=== PATIENT | male | born 1940 | race Caucasian/White ===

== ENCOUNTER → 2016-08-23 | Outpatient (CLI) | payer MEDICARE, BC | END | disposition home or self-care (01) | LOC: LABWHC1 16:15 | PROVIDERS: ATTEND Psychiatry & Neurology Pain Medicine | DX: E55.9 Vitamin D deficiency, unspecified (principal) | CPT/HCPCS: 36415; 82306 ==

== ENCOUNTER 2016-09-04 13:32 | Day surgery (SDC) | payer MEDICARE, BC ==
[2016-09-04] MEDS ORDERED: LIDOCAINE 1% 20 ML VIAL (10MG/ML) FOR IV START INTRADERMA ONE (13:46)
[2016-09-04] MEDS ORDERED: LACTATED RINGERS 1,000 ML IV ONE (13:46)
[2016-09-04 13:53] VITALS: TEMP 98.5
[2016-09-04] MEDS ORDERED: LIDOCAINE 1% INJ 10MG/ML (20 ML MDV) ONE (14:11)
[2016-09-04] MEDS ORDERED: GLYCOPYRROLATE 0.2 MG/ML 2 ML VIAL ONE (14:11)
[2016-09-04] MEDS ORDERED: KETAMINE 10 MG/ML 20 ML VIAL ONE (14:11)
[2016-09-04] MEDS ORDERED: PROPOFOL 10 MG/ML 20 ML VIAL IV ONE (14:11)
[2016-09-04] MEDS ORDERED: LIDOCAINE 2% INJ 20 MG/ML INTRATRACH ONE (14:45)
[2016-09-04 16:05] VITALS: BP 155/74; PULSE 75; RESP 20
--- NOTE | 2016-09-04 21:04 | PCN ---
DATE OF PROCEDURE: PROCEDURE: Bronchoscopy, airway examination, therapeutic lavage and retrieval of a foreign object (a gold dental appliance). PREOPERATIVE DIAGNOSIS: Foreign body aspiration, right mainstem. POSTOPERATIVE DIAGNOSIS: Foreign body aspiration, right mainstem. There was informed consent. There was universal timeout. [employer] LEADER and anesthesiologist provided sedation. The patient's procedure was done in Room #1 in the [facility]. The procedure was also done by Dr. Nadja Haynes. After the patient was adequately sedated and being fully monitored, the bronchoscope was inserted through the nostrils. There was some epistaxis. Eventually we switched over to a bite block. We eventually went transorally. We were able to find the foreign body in the right lower lobe. We were able to snare it with the biopsy forceps. We were able to bring it out through the bite block. The patient tolerated the procedure well. There was some epistaxis from above. The bleeding pretty much ceased by the time we were done with the procedure. The foreign body was removed. The airway was cleansed with saline. There was no immediate complication. The patient tolerated the procedure well.
[2016-09-05] MEDS ORDERED: ATROPINE SULFATE 0.4 MG/ML 1 ML VIAL IM ONE (05:00)
== END 2016-09-04 16:51 | disposition home or self-care (01) ==
LOC: ORWHC2ENDO 13:32
PROVIDERS: ATTEND Internal Medicine Critical Care Medicine
DX: T17.890A Other foreign object in other parts of respiratory tract causing asphyxiation, initial encounter (principal); X58.XXXA Exposure to other specified factors, initial encounter; Y93.89 Activity, other specified; Y92.531 Health care provider office as the place of occurrence of the external cause; J44.9 Chronic obstructive pulmonary disease, unspecified; E27.40 Unspecified adrenocortical insufficiency; E78.5 Hyperlipidemia, unspecified; I48.91 Unspecified atrial fibrillation; K21.9 Gastro-esophageal reflux disease without esophagitis; N40.0 Benign prostatic hyperplasia without lower urinary tract symptoms; G47.30 Sleep apnea, unspecified; Z95.0 Presence of cardiac pacemaker; Z95.1 Presence of aortocoronary bypass graft; I12.9 Hypertensive chronic kidney disease with stage 1 through stage 4 chronic kidney disease, or unspecified chronic kidney disease; N18.4 Chronic kidney disease, stage 4 (severe); Z86.73 Personal history of transient ischemic attack (TIA), and cerebral infarction without residual deficits; Z79.01 Long term (current) use of anticoagulants; Z79.82 Long term (current) use of aspirin; Z79.899 Other long term (current) drug therapy; Z88.1 Allergy status to other antibiotic agents; Z88.5 Allergy status to narcotic agent; Z87.891 Personal history of nicotine dependence
CPT/HCPCS: 31635; J2001 ×2; J2704; 71010; 99153; 99213

== ENCOUNTER 2016-09-09 14:56 | Emergency (ER) | payer MEDICARE, BC ==
[2016-09-09 15:04] VITALS: RESP 18
[2016-09-09 15:50] LABS: Anisocytosis Slight; Basophils # (A) 0.1 k/uL (0-0.2); Basophils % (A) 1 %; CH 30.2; CHCM 32.9; Eosinophils # (A) 0.3 k/uL (0-0.7); Eosinophils % (A) 3 %; HCT 38.3 % (39.0-53.0); HDW 3.21; HGB 12.2 gm/dL (13.0-17.5); Luc # (Auto) 0.36; Luc % (Auto) 4; Lymphocytes # (A) 1.1 k/uL (1.0-4.8); Lymphocytes % (A) 12 %; MCH 29.3 pg (25.0-35.0); MCHC 31.7 g/dL (31.0-37.0); MCV 92.3 fL (80.0-100.0); Mean Platelet Volume 8.7; Monocytes # (A) 0.8 k/uL (0-1.0); Monocytes % (A) 9 %; Neutrophils # (A) 6.5 k/uL (1.3-7.7); Neutrophils % (A) 72 %; RBC 4.15 m/uL (4.30-5.90); RDW 16.4 % (11.5-15.5); WBC (Perox) 8.98
[2016-09-09 15:56] LABS: Calcium 9.5 mg/dL (8.4-10.2); Potassium 4.2 mmol/L (3.5-5.1); Total Bilirubin 1.1 mg/dL (0.2-1.3); Total Protein 6.1 g/dL (6.3-8.2)
[2016-09-09 16:10] LABS: Creatine Kinase 54 U/L (55-170)
[2016-09-09 16:23] LABS: Creatine Kinase MB 0.6 ng/mL (0.0-2.4); Troponin I <0.012 ng/mL (0.000-0.034)
--- NOTE | 2016-09-09 16:41 | XR ---
EXAMINATION TYPE: XR chest 2V DATE OF EXAM: 09/09/2016 4:29 PM COMPARISON: Chest x-ray 04 September 2016 HISTORY: Difficulty breathing TECHNIQUE: Frontal and lateral views of the chest are obtained. FINDINGS: There is no focal air space opacity, pleural effusion, or pneumothorax seen. The cardiac silhouette size is within normal limits. There are prominent lung volumes. Patient is post median s ternotomy. Intracardiac defibrillator leads are again noted. Postop change noted to the left shoulder . The osseous structures are intact. IMPRESSION: No acute cardiopulmonary process.
[2016-09-09] MEDS ORDERED: NITROGLYCERIN OINT 1 INCH/GM PACKET TOPICAL STA (16:47)
[2016-09-09] MEDS ORDERED: FUROSEMIDE 10 MG/ML 4 ML VIAL IV STA (16:47)
--- NOTE | 2016-09-09 17:12 | ED ---
SOB HPI - General Chief Complaint: Shortness of Breath Stated Complaint: SOB/deep cough/shoulder pain Time Seen by Provider: 09/09/16 15:19 Source: patient Mode of arrival: wheelchair Limitations: no limitations - History of Present Illness MD Complaint: shortness of breath -: hour(s) Consistency: constant Improves With: nothing Worsens With: exertion Known History Of: COPD Associated Symptoms: cough, sputum production - Related Data Home Medications Medication Instructions Recorded Confirmed FLUoxetine HCL [PROzac] 20 mg PO W/SUPPER 11/24/13 09/09/16 Folic Acid 1 mg PO W/SUPPER 11/24/13 09/09/16 Methotrexate Sodium [Methotrexate] 5 mg PO FR 11/24/13 09/09/16 Pantoprazole Sodium [Protonix] 40 mg PO BID 11/24/13 09/09/16 Tamsulosin [Flomax] 0.8 mg PO W/SUPPER 12/01/13 09/09/16 Calcitriol 0.5 mcg PO MOWEFR 05/29/16 09/09/16 Donepezil [Aricept] 5 mg PO HS 05/29/16 09/09/16 Furosemide [Lasix] 20 mg PO QAM 05/29/16 09/09/16 Gabapentin [Neurontin] 400 mg PO HS 05/29/16 09/09/16 Magnesium Oxide 400 mg PO QAM 05/29/16 09/09/16 Warfarin [Coumadin] 1 mg PO SUMOWETHFRSA 05/29/16 09/09/16 Aspirin EC [Ecotrin Low Dose] 81 mg PO QAM 09/09/16 09/09/16 Atorvastatin Calcium [Lipitor] 40 mg PO QAM 09/09/16 09/09/16 CHLORPHEN-HYDROcod 8-10mg/5ml 5 ml PO Q12HR PRN 09/09/16 09/09/16 [Tussionex] Calcitonin Nasal [Fortical] 1 spray NASAL DAILY 09/09/16 09/09/16 Hydrocodone Bitartrate [[place] 30 mg PO Q12H 09/09/16 09/09/16 ER] Metoprolol Tartrate [Lopressor] 12.5 mg PO BID 09/09/16 09/09/16 Warfarin [Coumadin] 1.5 mg PO TU 09/09/16 09/09/16 Allergies Allergy/AdvReac Type Severity Reaction Status Date / Time fentanyl AdvReac Nausea Verified 09/09/16 15:57 levofloxacin [From Levaquin] AdvReac Hallucinati Verified 09/09/16 15:57 ons methadone [Methadone] AdvReac Nausea Verified 09/09/16 15:57 morphine AdvReac Nausea Verified 09/09/16 15:57 oxycodone HCl AdvReac Leg Cramps Verified 09/09/16 15:57 [From OxyContin] Review of Systems ROS Statement: Those systems with pertinent positive or pertinent negative responses have been documented in the HPI. ROS Other: All systems not noted in ROS Statement are negative. Constitutional: Denies: fever, chills Respiratory: Reports: cough, dyspnea, wheezes. Denies: hemoptysis Cardiovascular: Denies: chest pain, edema, syncope Gastrointestinal: Denies: abdominal pain, vomiting, diarrhea Genitourinary: Denies: hematuria Musculoskeletal: Denies: back pain Skin: Denies: rash Neurological: Denies: headache, weakness, numbness Past Medical History Past Medical History: Atrial Fibrillation, Heart Failure, COPD, CVA/TIA, GERD/ Reflux, Hearing Disorder / Deafness, Hyperlipidemia, Prostate Disorder, Renal Disease, Skin Disorder Additional Past Medical History / Comment(s): HX BARRETTS ESOPHAGUS. hx TIA, BELLS PALSY. aortic aneurysm, psoriasis, stage 4 kidney disease, enlarged prostate, NON CANCEROUS LESION REMOVED FROM RIGHT NOSTRIL, FELL 06/01/16 BACK INJURY VERTEBRAE BROKEN History of Any Multi-Drug Resistant Organisms: None Reported Past Surgical History: AICD, Appendectomy, Cardiac Valve Replacement, Cholecystectomy, Joint Replacement, Orthopedic Surgery, Tonsillectomy Additional Past Surgical History / Comment(s): MITRAL VALVE REPL. 2006. SHOULDER SURG. X6-BOTH SHOULDERS. RIGHT EYE SURG/D/T INJURY. left shoulder replacement, riky cataracts Past Anesthesia/Blood Transfusion Reactions: Previous Problems w/ Anesthesia Additional Past Anesthesia/Blood Transfusion Reaction / Comment(s): confused for 21 days after mitral valve replacement at [facility] in 2006 Type of Cardiac Device: AICD Device Placement Date:: 2014.[employer]-serial [id number], model [id number] Past Psychological History: Anxiety, Depression Smoking Status: Former smoker Past Alcohol Use History: None Reported Additional Past Alcohol Use History / Comment(s): quit smoking 1985, smoked for about 20 yrs- 1 PPD Past Drug Use History: None Reported - Past Family History Sister(s) Family Medical History: Cancer General Exam Limitations: no limitations General appearance: alert Head exam: Present: atraumatic, normocephalic Eye exam: Present: normal appearance Neck exam: Present: normal inspection Respiratory exam: Present: rales (Bilateral bases). Absent: respiratory distress, wheezes, rhonchi, stridor Cardiovascular Exam: Present: regular rate, normal rhythm, normal heart sounds. Absent: systolic murmur, diastolic murmur, rubs, gallop GI/Abdominal exam: Present: soft. Absent: distended, tenderness, guarding, rebound Extremities exam: Present: normal inspection, normal capillary refill. Absent: pedal edema, calf tenderness Back exam: Absent: CVA tenderness (R), CVA tenderness (L) Neurological exam: Present: alert Skin exam: Present: warm, dry, intact, normal color. Absent: rash Course Vital Signs 09/09/16 09/09/16 09/09/16 15:00 17:00 18:00 Temperature 97.6 F Pulse Rate 71 49 L 71 Respiratory 18 18 18 Rate Blood Pressure 125/60 123/56 134/64 O2 Sat by Pulse 97 95 97 Oximetry 09/09/16 18:50 Temperature 97.9 F Pulse Rate 71 Respiratory 18 Rate Blood Pressure 147/71 O2 Sat by Pulse 95 Oximetry Medical Decision Making - Medical Decision Making Repeat EKG again shows a ventricular paced rhythm this time with a rate of 69 bpm. The patient is feeling better following medications. He has urinated over 500 mL and feels like his breathing has improved. We discussed brief admission but the patient would much rather continue as an outpatient. He'll return should the dyspnea recur or if he expresses any new symptoms. He is otherwise going to follow with his physician on Sunday. We discussed return parameters. - Lab Data Result diagrams: 09/09/16 15:25 09/09/16 15:25 Lab Results 09/09/16 09/09/16 09/09/16 Range/Units 15:25 15:25 15:25 WBC 9.0 (3.8-10.6) k/uL RBC 4.15 L (4.30-5.90) m/uL Hgb 12.2 L (13.0-17.5) gm/dL Hct 38.3 L (39.0-53.0) % MCV 92.3 (80.0-100.0) fL MCH 29.3 (25.0-35.0) pg MCHC 31.7 (31.0-37.0) g/dL RDW 16.4 H (11.5-15.5) % Plt Count 318 (150-450) k/uL Neutrophils % 72 % Lymphocytes % 12 % Monocytes % 9 % Eosinophils % 3 % Basophils % 1 % Neutrophils # 6.5 (1.3-7.7) k/uL Lymphocytes # 1.1 (1.0-4.8) k/uL Monocytes # 0.8 (0-1.0) k/uL Eosinophils # 0.3 (0-0.7) k/uL Basophils # 0.1 (0-0.2) k/uL Anisocytosis Slight Sodium 141 (137-145) mmol/L Potassium 4.2 (3.5-5.1) mmol/L Chloride 100 (98-107) mmol/L Carbon Dioxide 29 (22-30) mmol/L Anion Gap 12 mmol/L BUN 24 H (9-20) mg/dL Creatinine 2.00 H (0.66-1.25) mg/dL Est GFR (MDRD) Af Amer 39 (>60 ml/min/1.73 sqM) Est GFR (MDRD) Non-Af 33 (>60 ml/min/1.73 sqM) Glucose 109 H (74-99) mg/dL Calcium 9.5 (8.4-10.2) mg/dL Total Bilirubin 1.1 (0.2-1.3) mg/dL AST 33 (17-59) U/L ALT 29 (21-72) U/L Alkaline Phosphatase 108 (38-126) U/L Total Creatine Kinase 54 L (55-170) U/L CK-MB (CK-2) 0.6 (0.0-2.4) ng/mL CK-MB (CK-2) Rel Index 1.1 Troponin I <0.012 (0.000-0.034) ng/mL NT-Pro-B Natriuret Pep pg/mL Total Protein 6.1 L (6.3-8.2) g/dL Albumin 3.8 (3.5-5.0) g/dL 09/09/16 Range/Units 15:25 WBC (3.8-10.6) k/uL RBC (4.30-5.90) m/uL Hgb (13.0-17.5) gm/dL Hct (39.0-53.0) % MCV (80.0-100.0) fL MCH (25.0-35.0) pg MCHC (31.0-37.0) g/dL RDW (11.5-15.5) % Plt Count (150-450) k/uL Neutrophils % % Lymphocytes % % Monocytes % % Eosinophils % % Basophils % % Neutrophils # (1.3-7.7) k/uL Lymphocytes # (1.0-4.8) k/uL Monocytes # (0-1.0) k/uL Eosinophils # (0-0.7) k/uL Basophils # (0-0.2) k/uL Anisocytosis Sodium (137-145) mmol/L Potassium (3.5-5.1) mmol/L Chloride (98-107) mmol/L Carbon Dioxide (22-30) mmol/L Anion Gap mmol/L BUN (9-20) mg/dL Creatinine (0.66-1.25) mg/dL Est GFR (MDRD) Af Amer (>60 ml/min/1.73 sqM) Est GFR (MDRD) Non-Af (>60 ml/min/1.73 sqM) Glucose (74-99) mg/dL Calcium (8.4-10.2) mg/dL Total Bilirubin (0.2-1.3) mg/dL AST (17-59) U/L ALT (21-72) U/L Alkaline Phosphatase (38-126) U/L Total Creatine Kinase (55-170) U/L CK-MB (CK-2) (0.0-2.4) ng/mL CK-MB (CK-2) Rel Index Troponin I (0.000-0.034) ng/mL NT-Pro-B Natriuret Pep 2340 pg/mL Total Protein (6.3-8.2) g/dL Albumin (3.5-5.0) g/dL - EKG Data -: EKG Interpreted by Wa Rate: normal (Rate 73 bpm) Interpretation: other (There is a ventricular paced rhythm which appears to be a biventricular pacer) Disposition Clinical Impression: Congestive heart failure Disposition: HOME SELF-CARE Condition: Fair Instructions: Heart Failure (ED) Referrals: Jorge Lewis DO [Primary Care Provider] - 1-2 days
[2016-09-09 18:50] VITALS: PULSE 71
[2016-09-09 18:51] VITALS: BP 147/71; TEMP 97.9
== END 2016-09-09 18:55 | disposition home or self-care (01) ==
LOC: EC 14:56
DX: I50.9 Heart failure, unspecified (principal); I48.91 Unspecified atrial fibrillation; K21.9 Gastro-esophageal reflux disease without esophagitis; N28.9 Disorder of kidney and ureter, unspecified; E78.5 Hyperlipidemia, unspecified; N40.0 Benign prostatic hyperplasia without lower urinary tract symptoms; K22.70 Barrett's esophagus without dysplasia; Z79.01 Long term (current) use of anticoagulants; Z79.82 Long term (current) use of aspirin; Z79.899 Other long term (current) drug therapy; Z95.810 Presence of automatic (implantable) cardiac defibrillator; Z95.2 Presence of prosthetic heart valve; Z88.1 Allergy status to other antibiotic agents; Z88.5 Allergy status to narcotic agent
CPT/HCPCS: 36415; 93005; 83880; 80053; 82550; 82553; 84484; 85025; 71020; 99285; 96374; J1940

== ENCOUNTER → 2016-09-26 | Outpatient (CLI) | payer MEDICARE, BC ==
--- NOTE | 2016-09-26 13:49 | FL ---
EXAMINATION TYPE: FL barium swallow w video DATE OF EXAM: 09/26/2016 12:23 PM COMPARISON: NONE HISTORY: Recent aspiration, difficulty swallowing TECHNIQUE: Fluoroscopy. FINDINGS: Fluoroscopic guidance was provided for the procedure performed in conjunction with the [facility] pathology department. Please see complete report forthcoming from the Speech Pathology departmen t. Various consistencies from thin liquid to solids were administered. No aspiration or penetration was evident. No significant pooling was observed in the vallecula. There was normal propulsion of the bolus. IMPRESSION: 1. Normal modified barium swallow.
== END | disposition home or self-care (01) ==
LOC: RADFLMAIN 11:18
PROVIDERS: ATTEND Psychiatry & Neurology Neurology
DX: R13.10 Dysphagia, unspecified (principal)
CPT/HCPCS: 74230

== ENCOUNTER → 2016-10-20 | Outpatient (CLI) | payer MEDICARE, BC ==
[2016-10-20 10:27] LABS: Anisocytosis Slight; CH 27.8; CHCM 30.8; HCT 42.5 % (39.0-53.0); HDW 3.12; Hypochromasia Moderate; INR 2.4 (<1.1); MCH 27.8 pg (25.0-35.0); MCHC 30.7 g/dL (31.0-37.0); MCV 90.5 fL (80.0-100.0); Mean Platelet Volume 8.6; Prothrombin Time 23.4 sec (9.0-12.0); RBC 4.69 m/uL (4.30-5.90); RDW 16.8 % (11.5-15.5); WBC 8.3 k/uL (3.8-10.6)
[2016-10-20 11:06] LABS: Calcium 9.8 mg/dL (8.4-10.2); Magnesium 1.6 mg/dL (1.6-2.3); Potassium 3.9 mmol/L (3.5-5.1); Total Bilirubin 0.8 mg/dL (0.2-1.3); Total Protein 6.6 g/dL (6.3-8.2)
== END ==
LOC: LABWHC1 09:42
PROVIDERS: ATTEND Student in an Organized Health Care Education/Training Program
DX: I49.9 Cardiac arrhythmia, unspecified (principal); Z86.79 Personal history of other diseases of the circulatory system
CPT/HCPCS: 36415; 80053; 83735; 83880; 85027; 85610

== ENCOUNTER → 2016-10-30 | Outpatient (CLI) | payer MEDICARE, BC ==
--- NOTE | 2016-10-30 16:57 | BD ---
EXAMINATION TYPE: MG DEXA axial skeleton. DATE OF EXAM: 10/30/2016 12:43 PM COMPARISON: NONE CLINICAL HISTORY: 76-year-old male VITAMIN D deficiency Height: 5'11 Weight: 212 FRAX RISK QUESTIONS: Alcohol (3 or more units per day): no Family History (Parent hip fracture): no Glucocorticoids (More than 3mos): no (Ex: prednisone, prednisolone, methylprednisolone, dexamethasone, and hydrocortisone). History of Fracture in Adulthood: yes Secondary Osteoporosis: 1. Type 1 Diabetes: no 2. Hyperthyroidism: no 3. Menopause before 45: NA 4. Malnutrition: no 5. Chronic liver disease: no Rheumatoid Arthritis: no Current Tobacco Use: no RISK FACTORS HISTORY OF: Spine Fracture: When: 2017 Other Fractures since Age 49: When: 2017 Active: Frequent falls: MEDICATIONS: Additional Medications: cholesterol, blood pressure, Additional History: L5 fracture EXAM MEASUREMENTS: Bone mineral density about the R hip (g/cm2): 0.952 Bone mineral density about the L hip (g/cm2): 1.064 T Score values are as follows: -----R Neck: -0.6 -----L Neck: 0.2 -----R Intertrochanter: -0.1 -----L Intertrochanter: 0.2 IMPRESSION: Normal bone mineral density as measured in the hips. NOTE: T-SCORE=SD OF THE YOUNG ADULT MEAN.
== END | disposition home or self-care (01) ==
LOC: RADBDWWP 12:20
PROVIDERS: ATTEND Psychiatry & Neurology Neurology
DX: E55.9 Vitamin D deficiency, unspecified (principal)
CPT/HCPCS: 77080

== ENCOUNTER 2016-12-29 10:58 | Inpatient (IN) | payer MEDICARE, BC ==
[2016-12-29] MEDS ORDERED: SODIUM CHLORIDE 0.9% 1,000 ML IV STA (11:08)
[2016-12-29] MEDS ORDERED: DIPH,PERTUS(ACELL)TETVAC-LF 0.5 ML VIAL IM ONE (11:08)
--- NOTE | 2016-12-29 11:12 | ED ---
General Adult HPI - General Chief complaint: Syncope Stated complaint: Syncope Time Seen by Provider: 12/29/16 11:00 Source: patient, EMS, RN notes reviewed Mode of arrival: EMS Limitations: no limitations - History of Present Illness Initial comments: Patient is a pleasant 76-year-old male presenting to the emergency department following syncopal episode. Patient does not recall falling however does remember hitting his head on the ground. Patient states once he hit his head he woke up. Patient is unclear why he may have passed out. No chest pain or dyspnea. Patient's chronic back pain that is unchanged. No neck pain. No abdominal pain. No confusion or weakness. Unclear last tetanus immunization. - Related Data Home Medications Medication Instructions Recorded Confirmed FLUoxetine HCL [PROzac] 20 mg PO W/SUPPER 11/24/13 12/29/16 Folic Acid 1 mg PO W/SUPPER 11/24/13 12/29/16 Methotrexate Sodium [Methotrexate] 5 mg PO FR 11/24/13 12/29/16 Pantoprazole Sodium [Protonix] 40 mg PO BID 11/24/13 12/29/16 Tamsulosin [Flomax] 0.4 mg PO W/SUPPER 12/01/13 12/29/16 Calcitriol 0.5 mcg PO WEFR 05/29/16 12/29/16 Donepezil [Aricept] 5 mg PO HS 05/29/16 12/29/16 Furosemide [Lasix] 20 mg PO QAM 05/29/16 12/29/16 Magnesium Oxide 400 mg PO QAM 05/29/16 12/29/16 Warfarin [Coumadin] 1 mg PO SUMOWETHFRSA 05/29/16 12/29/16 Aspirin EC [Ecotrin Low Dose] 81 mg PO QAM 09/09/16 12/29/16 Atorvastatin Calcium [Lipitor] 40 mg PO QAM 09/09/16 12/29/16 Metoprolol Tartrate [Lopressor] 12.5 mg PO BID 09/09/16 12/29/16 Warfarin [Coumadin] 1.5 mg PO TU 09/09/16 12/29/16 CHLORPHEN-HYDROcod 8-10mg/5ml 5 ml PO Q12HR PRN 12/29/16 12/29/16 [Tussionex] Cholecalciferol [Vitamin D3] 400 unit PO DAILY 12/29/16 12/29/16 Dronabinol [Marinol] 2.5 mg PO QID 12/29/16 12/29/16 HYDROcodone/APAP 7.5-325MG [[place] 1 tab PO BID PRN 12/29/16 12/29/16 7.5-325] Allergies Allergy/AdvReac Type Severity Reaction Status Date / Time fentanyl AdvReac Nausea Verified 12/29/16 11:43 levofloxacin [From Levaquin] AdvReac Hallucinati Verified 12/29/16 11:43 ons methadone [Methadone] AdvReac Nausea Verified 12/29/16 11:43 morphine AdvReac Nausea Verified 12/29/16 11:43 oxycodone HCl AdvReac Leg Cramps Verified 12/29/16 11:43 [From OxyContin] Review of Systems ROS Statement: Those systems with pertinent positive or pertinent negative responses have been documented in the HPI. ROS Other: All systems not noted in ROS Statement are negative. Constitutional: Denies: fever Eyes: Denies: eye pain ENT: Denies: ear pain Respiratory: Denies: cough Cardiovascular: Denies: chest pain Endocrine: Denies: fatigue Gastrointestinal: Denies: abdominal pain Genitourinary: Denies: urgency Musculoskeletal: Reports: back pain (Chronic and unchanged) Skin: Denies: lesions Neurological: Reports: headache (Mild posterior head where he struck the ground) . Denies: weakness, confusion Past Medical History Past Medical History: Atrial Fibrillation, Heart Failure, COPD, CVA/TIA, GERD/ Reflux, Hearing Disorder / Deafness, Hyperlipidemia, Prostate Disorder, Renal Disease, Skin Disorder Additional Past Medical History / Comment(s): HX BARRETTS ESOPHAGUS. hx TIA, BELLS PALSY. aortic aneurysm, psoriasis, stage 4 kidney disease, enlarged prostate, NON CANCEROUS LESION REMOVED FROM RIGHT NOSTRIL, FELL 06/01/16 BACK INJURY VERTEBRAE BROKEN History of Any Multi-Drug Resistant Organisms: None Reported Past Surgical History: AICD, Appendectomy, Cardiac Valve Replacement, Cholecystectomy, Joint Replacement, Orthopedic Surgery, Tonsillectomy Additional Past Surgical History / Comment(s): MITRAL VALVE REPL. 2007. SHOULDER SURG. X6-BOTH SHOULDERS. RIGHT EYE SURG/D/T INJURY. left shoulder replacement, riky cataracts Past Anesthesia/Blood Transfusion Reactions: Previous Problems w/ Anesthesia Additional Past Anesthesia/Blood Transfusion Reaction / Comment(s): confused for 21 days after mitral valve replacement at [facility] in 2006 Type of Cardiac Device: AICD Device Placement Date:: 2014.Medtronic-serial [id number], model [id number] Past Psychological History: Anxiety, Depression Smoking Status: Former smoker Past Alcohol Use History: None Reported Additional Past Alcohol Use History / Comment(s): quit smoking 1985, smoked for about 20 yrs- 1 PPD Past Drug Use History: None Reported - Past Family History Sister(s) Family Medical History: Cancer General Exam Limitations: no limitations General appearance: alert, in no apparent distress Head exam: Present: other (Posterior scalp abrasions) Eye exam: Present: normal appearance, PERRL, EOMI. Absent: nystagmus ENT exam: Present: normal oropharynx Neck exam: Present: normal inspection Respiratory exam: Present: normal lung sounds bilaterally. Absent: chest wall tenderness Cardiovascular Exam: Present: regular rate, normal rhythm GI/Abdominal exam: Present: soft. Absent: tenderness, pulsatile mass Extremities exam: Present: normal inspection, full ROM. Absent: tenderness Back exam: Present: normal inspection. Absent: tenderness Neurological exam: Present: alert, oriented X3, CN II-XII intact. Absent: motor sensory deficit Expanded Speech: Present: fluid speech Cranial nerves: EOM's Intact: Normal Motor strength exam: RUE: 5, LUE: 5, RLE: 5, LLE: 5 Eye Response: (4) open spontaneously Motor Response: (6) obeys commands Verbal Response: (5) oriented Psychiatric exam: Present: normal affect, normal mood Skin exam: Present: normal color Course Vital Signs 12/29/16 11:01 Temperature 97.8 F Pulse Rate 75 Respiratory 18 Rate Blood Pressure 155/74 O2 Sat by Pulse 98 Oximetry EKG Findings - EKG Comments: EKG Findings:: Paced rhythm at 76. QRS 156. QT 444. QTC 499. Superior axis. Wide-complex QRS. Nonspecific ST-T. Medical Decision Making - Medical Decision Making Patient reexamined and resting comfortably in bed. Patient and family updated on results and plan. He is discussed with Dr. Davila who recommends medical admission to Dr. sparks. Case discussed with Michelle, who will admit for Dr. sparks. - Lab Data Result diagrams: 12/29/16 11:12 12/29/16 11:12 Lab Results 12/29/16 12/29/16 12/29/16 Range/Units 11:12 11:12 11:12 WBC 13.4 H (3.8-10.6) k/uL RBC 5.57 (4.30-5.90) m/uL Hgb 13.9 (13.0-17.5) gm/dL Hct 44.0 (39.0-53.0) % MCV 79.0 L (80.0-100.0) fL MCH 24.9 L (25.0-35.0) pg MCHC 31.5 (31.0-37.0) g/dL RDW 16.5 H (11.5-15.5) % Plt Count 400 (150-450) k/uL Neutrophils % 80 % Lymphocytes % 10 % Monocytes % 6 % Eosinophils % 1 % Basophils % 0 % Neutrophils # 10.7 H (1.3-7.7) k/uL Lymphocytes # 1.4 (1.0-4.8) k/uL Monocytes # 0.8 (0-1.0) k/uL Eosinophils # 0.1 (0-0.7) k/uL Basophils # 0.0 (0-0.2) k/uL Hypochromasia Moderate Anisocytosis Slight Microcytosis Slight PT (9.0-12.0) sec INR (<1.1) APTT (22.0-30.0) sec Sodium 137 (137-145) mmol/L Potassium 4.5 (3.5-5.1) mmol/L Chloride 103 (98-107) mmol/L Carbon Dioxide 22 (22-30) mmol/L Anion Gap 12 mmol/L BUN 36 H (9-20) mg/dL Creatinine 2.18 H (0.66-1.25) mg/dL Est GFR (MDRD) Af Amer 36 (>60 ml/min/1.73 sqM) Est GFR (MDRD) Non-Af 29 (>60 ml/min/1.73 sqM) Glucose 141 H (74-99) mg/dL Calcium 9.1 (8.4-10.2) mg/dL Total Bilirubin 1.2 (0.2-1.3) mg/dL AST 40 (17-59) U/L ALT 30 (21-72) U/L Alkaline Phosphatase 92 (38-126) U/L Total Creatine Kinase 37 L (55-170) U/L CK-MB (CK-2) 1.1 (0.0-2.4) ng/mL CK-MB (CK-2) Rel Index 3.0 Troponin I <0.012 (0.000-0.034) ng/mL Total Protein 6.4 (6.3-8.2) g/dL Albumin 3.9 (3.5-5.0) g/dL Urine Color Urine Appearance (Clear) Urine pH (5.0-8.0) Ur Specific [place] (1.001-1.035) Urine Protein (Negative) Urine Glucose (UA) (Negative) Urine Ketones (Negative) Urine Blood (Negative) Urine Nitrite (Negative) Urine Bilirubin (Negative) Urine Urobilinogen (<2.0) mg/dL Ur Leukocyte Esterase (Negative) 12/29/16 12/29/16 Range/Units 11:12 11:47 WBC (3.8-10.6) k/uL RBC (4.30-5.90) m/uL Hgb (13.0-17.5) gm/dL Hct (39.0-53.0) % MCV (80.0-100.0) fL MCH (25.0-35.0) pg MCHC (31.0-37.0) g/dL RDW (11.5-15.5) % Plt Count (150-450) k/uL Neutrophils % % Lymphocytes % % Monocytes % % Eosinophils % % Basophils % % Neutrophils # (1.3-7.7) k/uL Lymphocytes # (1.0-4.8) k/uL Monocytes # (0-1.0) k/uL Eosinophils # (0-0.7) k/uL Basophils # (0-0.2) k/uL Hypochromasia Anisocytosis Microcytosis PT 44.9 H (9.0-12.0) sec INR 4.5 (<1.1) APTT 35.7 H (22.0-30.0) sec Sodium (137-145) mmol/L Potassium (3.5-5.1) mmol/L Chloride (98-107) mmol/L Carbon Dioxide (22-30) mmol/L Anion Gap mmol/L BUN (9-20) mg/dL Creatinine (0.66-1.25) mg/dL Est GFR (MDRD) Af Amer (>60 ml/min/1.73 sqM) Est GFR (MDRD) Non-Af (>60 ml/min/1.73 sqM) Glucose (74-99) mg/dL Calcium (8.4-10.2) mg/dL Total Bilirubin (0.2-1.3) mg/dL AST (17-59) U/L ALT (21-72) U/L Alkaline Phosphatase (38-126) U/L Total Creatine Kinase (55-170) U/L CK-MB (CK-2) (0.0-2.4) ng/mL CK-MB (CK-2) Rel Index Troponin I (0.000-0.034) ng/mL Total Protein (6.3-8.2) g/dL Albumin (3.5-5.0) g/dL Urine Color Yellow Urine Appearance Clear (Clear) Urine pH 5.5 (5.0-8.0) Ur Specific [place] 1.011 (1.001-1.035) Urine Protein Negative (Negative) Urine Glucose (UA) Negative (Negative) Urine Ketones Negative (Negative) Urine Blood Negative (Negative) Urine Nitrite Negative (Negative) Urine Bilirubin Negative (Negative) Urine Urobilinogen <2.0 (<2.0) mg/dL Ur Leukocyte Esterase Negative (Negative) - Radiology Data Radiology results: report reviewed (Computed tomography scan of the brain shows no acute abnormality.), image reviewed (Two-view chest x-ray shows no acute process.) Disposition Clinical Impression: Syncope Disposition: ADMITTED IP TO THIS [facility] Referrals: Jorge Lewis DO [Primary Care Provider] - 1-2 days Time of Disposition: 12:56
[2016-12-29 11:43] LABS: Anisocytosis Slight; Basophils % (A) 0 %; CH 24.6; CHCM 31.2; Eosinophils # (A) 0.1 k/uL (0-0.7); Eosinophils % (A) 1 %; HDW 3.37; HGB 13.9 gm/dL (13.0-17.5); Hypochromasia Moderate; Luc # (Auto) 0.39; Luc % (Auto) 3; Lymphocytes # (A) 1.4 k/uL (1.0-4.8); Lymphocytes % (A) 10 %; MCH 24.9 pg (25.0-35.0); MCHC 31.5 g/dL (31.0-37.0); Microcytosis Slight; Monocytes # (A) 0.8 k/uL (0-1.0); Monocytes % (A) 6 %; Neutrophils # (A) 10.7 k/uL (1.3-7.7); Neutrophils % (A) 80 %; RBC 5.57 m/uL (4.30-5.90); RDW 16.5 % (11.5-15.5); WBC 13.4 k/uL (3.8-10.6); WBC (Perox) 14.16
[2016-12-29 11:46] LABS: INR 4.5 (<1.1); Partial Thromboplastin Time 35.7 sec (22.0-30.0); Prothrombin Time 44.9 sec (9.0-12.0)
--- NOTE | 2016-12-29 11:46 | CT ---
EXAMINATION TYPE: CT brain wo con DATE OF EXAM: 12/29/2016 HISTORY: Syncope, fall injury today. CT DLP: 1090.5 mGycm. Automated Exposure Control for Dose Reduction was Utilized. TECHNIQUE: CT scan of the head is performed without contrast. COMPARISON: None. FINDINGS: There is no acute intracranial hemorrhage or midline shift identified. There is diffuse v entricular and sulcal prominence consistent with diffuse age-related cerebral atrophy. There is low- attenuation in the periventricular white matter consistent with chronic small vessel ischemic change. The globes are intact and the visualized sinuses are clear. There is small scalp hematoma high right occipital lobe near axial image 47. The calvarium is intact. IMPRESSION: No acute intracranial hemorrhage or midline shift. There is mild to moderate diffuse ag e-related cerebral atrophy and chronic small vessel ischemic change noted.
[2016-12-29] MEDS ORDERED: HYDROcodone/APAP 10-325MG 1 EACH TAB PO ONE (11:48)
--- NOTE | 2016-12-29 11:49 | XR ---
EXAMINATION TYPE: XR chest 2V DATE OF EXAM: 12/29/2016 COMPARISON: Chest x-ray September 09, 2016. HISTORY: Syncope. TECHNIQUE: Frontal and lateral views of the chest are obtained. FINDINGS: There is no focal air space opacity, pleural effusion, or pneumothorax seen. The cardiac silhouette size remains within normal limits. Sternal wires are redemonstrated. There is persistent d ual lead pacemaker/AICD. There are additional epicardial wires redemonstrated. Metallic hardware from left shoulder surgery is partially imaged. IMPRESSION: No significant change from prior. No acute process identified.
[2016-12-29 12:11] LABS: Calcium 9.1 mg/dL (8.4-10.2); Potassium 4.5 mmol/L (3.5-5.1); Total Bilirubin 1.2 mg/dL (0.2-1.3); Total Protein 6.4 g/dL (6.3-8.2)
[2016-12-29 12:21] LABS: Creatine Kinase 37 U/L (55-170)
[2016-12-29 12:26] LABS: Appearance,Urine Clear (Clear); Bilirubin,Urine Negative (Negative); Glucose,Urine (UA) Negative (Negative); Ketones,Urine Negative (Negative); Leukocyte Esterase,Urine Negative (Negative); Nitrite,Urine Negative (Negative); PH, Urine 5.5 (5.0-8.0); Protein,Urine Negative (Negative); Specific Gravity,Urine 1.011 (1.001-1.035); UA Billing (MACRO vs. MICRO) CHEM; Urobilinogen,Urine <2.0 mg/dL (<2.0)
[2016-12-29 12:36] LABS: Creatine Kinase MB 1.1 ng/mL (0.0-2.4); Troponin I <0.012 ng/mL (0.000-0.034)
[2016-12-29] MEDS ORDERED: NALOXONE 0.4 MG/ML 1 ML VIAL IV PRN (12:56)
[2016-12-29] MEDS ORDERED: SODIUM CHLORIDE 0.9% 1,000 ML IV SCH (13:00)
[2016-12-29] MEDS ORDERED: CHLORPHEN-HYDROcod 8-10mg/5ml 5 ML ORAL.SYRG PO PRN (14:38)
[2016-12-29] MEDS ORDERED: WARFARIN 1 MG TAB PO SCH (14:45)
[2016-12-29] MEDS ORDERED: HYDROcodone/APAP 7.5-325MG 1 EACH TAB PO SCH (15:15)
--- NOTE | 2016-12-29 15:55 | CT ---
EXAMINATION TYPE: CT lumbar spine wo con DATE OF EXAM: 12/29/2016 COMPARISON: NONE HISTORY: Back pain, fracture from July fall CT DLP: 978 mGycm Automated exposure control for dose reduction was used. Technique: CT scan of the lumbar spine is performed without contrast. FINDINGS: There are 5 lumbar-type vertebra identified. There is subacute/chronic fracture involving the superio r L2 vertebra with mild to moderate height loss and sclerosis identified correlates with history of t rauma and fracture in July. No new acute fracture or dislocation is seen. Alignment is satisfactory. Spinal canal is preserved on sagittal images. No large posterior disc herniations are seen on sagittal images. The disc space hei ghts are fairly well-maintained. Vacuum disc phenomenon L1-L2 level is present. There is mild multile marta anterior and lateral spurring. There is more moderate to severe anterior and lateral spurring at L1-L2 level. Review of axial images shows a T12-L1 and L1-L2, L2-L3, and L3-L4 levels all to appear within normal limits. Axial images at L4-L5 level show mild facet degenerative changes bilaterally. There is mild broad dis c bulge minimally effacing the anterior thecal sac. Bilateral neural foramina are patent. Axial images at L5-S1 level show moderate left-sided facet degenerative changes. Spinal canal is pres erved. Bilateral neural foramina are patent. There is moderate to severe calcified atherosclerotic change of the abdominal aorta. This extends int o branch vessels. There is focal aneurysmal change seen. Aorta is incompletely imaged measuring appro ximately 4.4 cm in AP diameter on sagittal image 17. Aorta measures up to 4.1 cm transversely on axia l image 39. Some cortical thinning in visualized portion of both kidneys is present. IMPRESSION: 1. SUBACUTE/CHRONIC MILD TO MODERATE COMPRESSION TYPE FRACTURE DEFORMITY INVOLVING SUPERIOR L2 ENDPLA TE. ALIGNMENT IS SATISFACTORY. NO ACUTE FRACTURE OR DISLOCATION IS SEEN. 2. PARTIAL VISUALIZATION OF AT LEAST 4.4 CM FOCAL ANEURYSM OF THE INFRARENAL OR DISTAL ABDOMINAL AORT A. ADVISE DEDICATED ULTRASOUND FOLLOW-UP TO FURTHER EVALUATE AND CHARACTERIZE.
--- NOTE | 2016-12-29 16:08 | XR ---
Two-view spine HISTORY: Trauma and pain 2 views of the spine are submitted on a total of [address] lumbar spine same hannah e Superior endplate of L2 shows loss of height compatible with subacute compression fracture. Bone mine ralization is reduced. There is multilevel spondylosis. Infrarenal abdominal aortic aneurysm is prese nt measuring approximately 5.2 cm. Cervical and thoracic vertebral bodies show preserved height. Ther e is multilevel spondylosis. Intracardiac defibrillator leads, overlying cardiac leads, epicardial pa cing leads are present. There are carotid artery calcification. Facet arthropathy changes are present . IMPRESSION: Superior endplate fracture L2. Abdominal aortic aneurysm. Additional findings above.
[2016-12-29] MEDS: HYDROcodone/APAP 7.5-325MG 1 EACH TAB PO SCH (16:26)
[2016-12-29] MEDS: DRONABINOL 2.5 MG CAP PO SCH (16:27)
[2016-12-29] MEDS: FLUoxetine HCL 20 MG CAP PO SCH (16:27)
[2016-12-29] MEDS: PANTOPRAZOLE 40 MG TABLET PO SCH (16:28)
[2016-12-29] MEDS: FOLIC ACID 1 MG TAB PO SCH (16:28)
[2016-12-29] MEDS: TAMSULOSIN 0.4 MG CAP.ER.24H PO SCH (16:28)
[2016-12-29] MEDS ORDERED: DRONABINOL 2.5 MG CAP PO SCH (18:00)
[2016-12-29] MEDS: LACTATED RINGERS 1,000 ML IV SCH (18:16)
[2016-12-29] MEDS: METOPROLOL TARTRATE 12.5 MG TAB PO SCH (20:21)
[2016-12-29] MEDS: DONEPEZIL 5 MG TAB PO SCH (20:21)
--- NOTE | 2016-12-29 20:52 | HP ---
DATE OF ADMISSION: 12/29/2016 PRESENTING COMPLAINT: Passed out. HISTORY OF PRESENTING COMPLAINT: Pleasant 76-year-old patient of Dr. Lewis. Chronic stable medical conditions include atrial fibrillation, CHF, GERD, hypertension, hyperlipidemia, Jenkins's esophagus, abdominal aortic aneurysm, chronic kidney disease, BPH, chronic L2 to L5 fracture and vitamin D deficiency. Patient with his had gone to see Dr. Leonard, the furniture servicer. He was in the car waiting outside; has a cane; was not feeling well; somewhat actually tired. His went toward the back of the car to get the walker, and patient actually went down and passed out; not for too long. When they came inside, patient's blood pressure was low. Patient does state that he has been feeling dizzy and lightheaded when he gets up. Denies any palpitation. No focal weakness. No seizure activity. REVIEW OF SYSTEMS: CONSTITUTIONAL: Tired. HEENT: Decreased hearing. RESPIRATORY: None. CARDIOVASCULAR: None. GASTROINTESTINAL: Heartburn. GENITOURINARY: Some BPH symptoms. DERMATOLOGICAL: None. HEMATOLOGIC: None. LYMPHATICS: None. PSYCHIATRY: None. NEUROLOGICAL: No focal symptoms. PAST MEDICAL HISTORY: 1. Atrial fibrillation. 2. CHF. 3. GERD. 4. Hyperlipidemia. 5. Hypertension. 6. Jenkins's esophagus. 7. Abdominal aortic aneurysm. 8. Chronic kidney disease. 9. BPH. 10. L2 to L5 fracture. 11. Vitamin D deficiency. PAST SURGICAL HISTORY: 1. AICD. Medtronic, serial. 2. Appendectomy. 3. Cardiac valve replacement. 4. Cholecystectomy. 5. Joint replacement. 6. Tonsillectomy. 7. Mitral valve replacement in 2006. 8. Right eye surgery due to injury. 9. Left shoulder replacement. 10. Total bilateral shoulder surgeries x7. 11. Pain clinic procedures. 12. Radiofrequency treatment for Jenkins's esophagus. PAST PSYCHIATRIC HISTORY: Anxiety, depression. SOCIAL HISTORY: Lives with his . Uses a cane and a walker. Patient smoked a pack a day for 20 years; stopped in 1988. FAMILY HISTORY: Cancer. Father had macular degeneration. HOME MEDICATIONS: 1. [place] 7.5 one tablet p.o. b.i.d. p.r.n. 2. Tussionex 5 mL p.o. q.12 p.r.n. 3. Coumadin 1.5 mg on Tuesdays and 1 mg on Sunday, Sunday, Sunday, , Sunday, Sunday. 4. Flomax 0.4 mg with supper. 5. Protonix 40 mg b.i.d. 6. Lopressor 12.5 p.o. b.i.d. 7. Methotrexate 5 mg p.o. on Sunday. 8. Magnesium 400 mg p.o. daily. 9. Lasix 20 mg p.o. daily. 10. Folic acid 1 mg p.o. with supper. 11. Prozac 20 mg with supper. 12. Marinol 2.5 p.o. q.i.d. 13. Aricept 5 mg p.o. at bedtime. 14. Vitamin D3 400 units a day. 15. Calcitriol 0.5 mcg p.o. on Sunday and Sunday. 16. Lipitor 40 mg p.o. daily. 17. Aspirin 81 mg p.o. daily. ALLERGIES: 1. FENTANYL. 2. LEVAQUIN. 3. METHADONE. 4. MORPHINE. 5. OXYCONTIN. On examination, temperature 97.5, pulse 79, respiration 18, blood pressure 130/70 lying down and ( ) systolic standing up. EYES: Pupils equal. Conjunctivae normal. HEENT: External appearance of nose and ears normal. Oral cavity normal. NECK: JVD not raised. Mass not palpable. RESPIRATORY: Effort normal. LUNGS: Slightly decreased breath sounds. CARDIOVASCULAR: Heart sounds irregular. No edema. ABDOMEN: Soft, nontender. Liver and spleen not palpable. LYMPHATIC: No lymph node palpable in neck or axillae. PSYCHIATRY: Alert and oriented x3. Mood and affect normal. NEUROLOGICAL: Pupils equal. Cranial nerves grossly intact. Power and sensation grossly intact. MUSCULOSKELETAL: Evidence of osteoarthritis in multiple joints. DERMATOLOGICAL: Some bruising is present. INVESTIGATIONS: White count 13.4, hemoglobin 13.9. INR 4.5. Potassium 4.5. BUN 36, creatinine 2.18. UA negative. ASSESSMENT: 1. Syncope, vasovagal, due to orthostatic hypotension in a patient who is on Lasix. 2. Persistent atrial fibrillation with a paced rhythm. 3. Chronic congestive heart failure; ejection fraction not known. 4. Gastroesophageal reflux disease. 5. Hyperlipidemia. 6. Essential hypertension. 7. Jenkins's esophagus. 8. Abdominal aortic aneurysm, size unknown. 9. Chronic kidney disease, stage III, from hypertensive nephrosclerosis. 10. Benign prostatic hypertrophy. 11. Chronic L2 to L5 fracture. 12. Vitamin D deficiency. 13. Coumadin monitoring. PLAN: At this point will stop patient's Lasix. Will gently hydrate the patient and repeat electrolytes in the morning. Check orthostatics each shift. Patient is to be careful when he gets up and walks. Will consult Nephrology. Patient follows with Dr. Lewis.
--- NOTE | 2016-12-30 00:22 | P.CNNES ---
History of Present Illness Consult date: 12/29/16 Requesting physician: Warren Haro Reason for Consult: Syncope Chief complaint: Syncope History of Present Illness: Patient is a 76-year-old male is being consulted by neurology for possible syncope. 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 Patient was attended to by his spouse. The patient strike his head during hte incident and had a moderat sized hematoma on the posterior portion of his scalp. Patient is having ongoing adjustments in his blood pressure medication. CT of the brain was negative for any acute process. Patient also had low back pain and does have a significant history of lumbar fracture. On contact, the patient AOx3, supine in bed resting in no acute distress. Past Medical History Past Medical History: Atrial Fibrillation, Heart Failure, CVA/TIA, GERD/Reflux, Hearing Disorder / Deafness, Hyperlipidemia, Hypertension, Prostate Disorder, Renal Disease, Skin Disorder Additional Past Medical History / Comment(s): HX BARRETTS ESOPHAGUS, TIA, BELLS PALSY, aortic aneurysm being monitored, psoriasis, stage 4 kidney disease, enlarged prostate, NON CANCEROUS LESION REMOVED FROM RIGHT NOSTRIL, FELL BACK INJURY L2/L5 VERTEBRAE fractured, vitamin D deficiency. History of Any Multi-Drug Resistant Organisms: None Reported Past Surgical History: AICD, Appendectomy, Cardiac Valve Replacement, Cholecystectomy, Joint Replacement, Orthopedic Surgery, Tonsillectomy Additional Past Surgical History / Comment(s): 2006 MITRAL VALVE REPLACED, RIGHT EYE SURGERY D/T INJURY, left shoulder replacement, total of 7 bilateral shoulder surgeries, pain clinic procedures, radio frequency tx for Jenkins's, EGD/colonoscopy, riky cataracts removed with lens implants, Past Anesthesia/Blood Transfusion Reactions: Previous Problems w/ Anesthesia Additional Past Anesthesia/Blood Transfusion Reaction / Comment(s): confused for 21 days after mitral valve replacement at [facility] in 2006 Type of Cardiac Device: AICD Device Placement Date:: 2014.Oohlytronic-serial [id number], model [id number] Past Psychological History: Anxiety, Depression Additional Psychological History / Comment(s): Pt resides with his spouse. He uses a cane or walker to ambulate. He drives. Smoking Status: Former smoker Past Alcohol Use History: None Reported Additional Past Alcohol Use History / Comment(s): quit smoking 1988, smoked for about 20 yrs- 1 PPD Past Drug Use History: None Reported - Past Family History Sister(s) Family Medical History: Cancer Father Family Medical History: Congestive Heart Failure (CHF), Eye Disorder, Rheumatoid Arthritis (RA) Additional Family Medical History / Comment(s): Father had macular degeneration. He at the age of 83yrs. Mother Family Medical History: Dementia Additional Family Medical History / Comment(s): Mother at the age of 81yrs. Medications and Allergies Home Medications Medication Instructions Recorded Confirmed Type FLUoxetine HCL [PROzac] 20 mg PO W/SUPPER 11/24/13 12/29/16 History Folic Acid 1 mg PO W/SUPPER 11/24/13 12/29/16 History Methotrexate Sodium [Methotrexate] 5 mg PO FR 11/24/13 12/29/16 History Pantoprazole Sodium [Protonix] 40 mg PO BID 11/24/13 12/29/16 History Tamsulosin [Flomax] 0.4 mg PO W/SUPPER 12/01/13 12/29/16 History Calcitriol 0.5 mcg PO WEFR 05/29/16 12/29/16 History Donepezil [Aricept] 5 mg PO HS 05/29/16 12/29/16 History Furosemide [Lasix] 20 mg PO QAM 05/29/16 12/29/16 History Magnesium Oxide 400 mg PO QAM 05/29/16 12/29/16 History Warfarin [Coumadin] 1 mg PO SUMOWETHFRSA 05/29/16 12/29/16 History Aspirin EC [Ecotrin Low Dose] 81 mg PO QAM 09/09/16 12/29/16 History Atorvastatin Calcium [Lipitor] 40 mg PO QAM 09/09/16 12/29/16 History Metoprolol Tartrate [Lopressor] 12.5 mg PO BID 09/09/16 12/29/16 History Warfarin [Coumadin] 1.5 mg PO TU 09/09/16 12/29/16 History [place]-HYDROcod 8-10mg/5ml 5 ml PO Q12HR PRN 12/29/16 12/29/16 History [Tussionex] Cholecalciferol [Vitamin D3] 400 unit PO DAILY 12/29/16 12/29/16 History Dronabinol [Marinol] 2.5 mg PO QID 12/29/16 12/29/16 History HYDROcodone/APAP 7.5-325MG [[place] 1 tab PO BID PRN 12/29/16 12/29/16 History 7.5-325] Allergies Allergy/AdvReac Type Severity Reaction Status Date / Time fentanyl AdvReac Nausea Verified 12/29/16 11:43 levofloxacin [From Levaquin] AdvReac Hallucinati Verified 12/29/16 11:43 ons methadone [Methadone] AdvReac Nausea Verified 12/29/16 11:43 morphine AdvReac Nausea Verified 12/29/16 11:43 oxycodone HCl AdvReac Leg Cramps Verified 12/29/16 11:43 [From OxyContin] Physical Examination - Vital Signs Vital Signs: Vital Signs Temp Pulse Pulse Resp BP BP BP 12/29/16 20:00 97.3 F L 73 18 137/67 12/29/16 16:00 98.1 F 79 18 130/75 99/58 12/29/16 15:40 74 18 12/29/16 13:50 97.5 F L 79 18 134/64 12/29/16 13:02 97.8 F 70 18 128/61 12/29/16 11:01 97.8 F 75 18 155/74 Pulse Ox 12/29/16 20:00 100 12/29/16 16:00 97 12/29/16 15:40 12/29/16 13:50 96 12/29/16 13:02 94 L 12/29/16 11:01 98 Intake and Output 12/29/16 12/29/16 12/30/16 14:59 22:59 06:59 Intake Total 240 Output Total 200 200 Balance -200 40 Intake: Oral 240 Output: Urine 200 200 Other: Voiding Method Urinal # Voids 1 0 Weight 92.533 kg Patient Weight 12/30/16 06:59 Weight 92.533 kg Constitutional: AOx3, cooperative HEENT: NC/AT, no facial asymmetry is seen. Throat: Supple, no masses Respiratory: No increased work of breathing Cardiac: Regular rate and Rhythm GI: non tender, non distended Musculoskeletal: [place] strengths are equal bilaterally 5/5, Lower extremity strengths are equal bilaterally at 5/5. Neurological: CN II-XII in tact, patient was AOx3, speech and language are normal, no unilateralizing weakness, no seizure activity note on physical exam. Sensation was normal. Integementary: no rash, no erythema Psychiatric: mood and affect appropriate Results CT lumbar spine notes the following: Vacuum disc phenomenon L1-2 present. Mild multilevel anterior and lateral spurring. More moderate to severe anterior and lateral spurring at L1-2. Levels T12-L1 and L1-L4 all appear to be within normal limits. L4-5 mild facet degenerative changes bilaterally. Mild broad- based disc bulge minimally effacing the anterior thecal sac. Bilateral neuroforamina are patent. At L5-S1 moderate left-sided facet degenerative changes. Spinal canal is preserved. Bilateral neuroforamina are patent. There is moderate to severe calcified atherosclerotic change of the abdominal aorta. This extends into the branch vessels. There is focal aneurysmal change seen. Aorta is incompletely imaged measuring approximately 4.4 cm in AP diameter. Aorta measures up to 4.1 cm transversely. - Laboratory Findings CBC and BMP: 12/29/16 11:12 12/29/16 11:12 Abnormal Lab Findings: Abnormal Labs 12/29/16 12/29/16 12/29/16 11:12 11:12 11:12 WBC 13.4 H MCV 79.0 L MCH 24.9 L RDW 16.5 H Neutrophils # 10.7 H PT APTT BUN 36 H Creatinine 2.18 H Glucose 141 H Total Creatine Kinase 37 L 12/29/16 11:12 WBC MCV MCH RDW Neutrophils # PT 44.9 H APTT 35.7 H BUN Creatinine Glucose Total Creatine Kinase Assessment and Plan (1) Syncope Status: Acute Plan: 1. Syncope 2. Aortic atherosclerotic changes 3. Low back pain/lumbago Patient physical exam and symptoms are reflective of orthostatic hypotension as the likely etiology for the patient's syncope. However, the patient will need the following diagnostic workup to include: carotid Doppler, EEG, continue telemetry monitoring, continue orthostatics every shift, continue neuro checks as previously ordered. Low back pain: Patient is known to our practice for low back pain as well as orthopedics for L2 and L5 fracture history. Current CT lumbar spine does not reflect a fracture of L5. Prior imaging dated notes L5 changes. Patient is due to have L2 procedures with orthopedic provider in the near future. On contact today, the patient complained of increased low back pain. Due to the patient's fall on a vehicle to the pavement, and increased intensity of the patient's normal low back pain, a CT of the lumbar spine was ordered. CT of the lumbar spine noted no new changes related to the lumbar region however there was an incidental finding as noted below. Patient's pain is managed with Marinol and [place] as noted in his medication history. Continue medications as prescribed and noted in history. Atherosclerotic changes are noted as moderate to severe calcified changes of the abdominal aorta this extends into branch vessels. There is focal aneurysmal change seen. Aorta is incompletely imaged measuring approximately 4.4 cm in AP diameter. Aorta measures up to 4.1 cm transversely. Recommend vascular consult. Neurology will continue to follow and provide updates as needed or warranted. I discussed the patient's pertinent medical information with Dr. Swanson. He agrees with the plan of care as implemented.
[2016-12-30] MEDS: HYDROcodone/APAP 7.5-325MG 1 EACH TAB PO SCH ×2 (00:35→09:01)
[2016-12-30] MEDS: PANTOPRAZOLE 40 MG TABLET PO SCH ×2 (06:32→18:44)
[2016-12-30] MEDS: LACTATED RINGERS 1,000 ML IV SCH ×2 (06:32→20:19)
[2016-12-30] MEDS: DRONABINOL 2.5 MG CAP PO SCH ×2 (06:32→18:43)
--- NOTE | 2016-12-30 08:48 | US ---
EXAMINATION TYPE: US carotid duplex BILAT DATE OF EXAM: 12/30/2016 COMPARISON: NONE CLINICAL HISTORY: syncope. EXAM MEASUREMENTS: RIGHT: Peak Systolic Velocity (PSV) cm/sec ----- Right CCA: 103.1 ----- Right ICA: 124.2 ----- Right ECA: 108.1 ICA/CCA ratio: 1.2 RIGHT: End Diastole cm/sec ----- Right CCA: 14.4 ----- Right ICA: 27.3 ----- Right ECA: 6.3 LEFT: Peak Systolic Velocity (PSV) cm/sec ----- Left CCA: 93.8 ----- Left ICA: 88.5 ----- Left ECA: 83.2 ICA/CCA ratio: 0.9 LEFT: End Diastole cm/sec ----- Left CCA: 13.1 ----- Left ICA: 18.4 ----- Left ECA: 0.0 VERTEBRALS (direction of flow): Right Vertebral: Antegrade Left Vertebral: Antegrade No significant stenosis seen, bilateral plaque throughout vessels. Grayscale images show fairly moderate diffuse eccentric plaque throughout the common carotid arteries including the carotid bulb bilaterally but velocity measurements and ratios in visualized portion of both internal carotid arteries remains within normal limits. IMPRESSION: Moderate atherosclerotic change bilaterally without hemodynamically significant stenosis seen in either internal carotid artery.
[2016-12-30] MEDS: ATORVASTATIN 40 MG TAB PO SCH (09:00)
[2016-12-30] MEDS ORDERED: FUROSEMIDE 20 MG TAB PO SCH (09:00)
[2016-12-30] MEDS: ASPIRIN 81 MG CHEW PO SCH (09:00)
[2016-12-30] MEDS: CHOLECALCIFEROL 400 UNIT TAB PO SCH (09:01)
[2016-12-30] MEDS: MAGNESIUM OXIDE 400 MG TAB PO SCH (09:01)
[2016-12-30] MEDS: METOPROLOL TARTRATE 12.5 MG TAB PO SCH ×2 (09:01→20:18)
--- NOTE | 2016-12-30 09:43 | P.CRDCN ---
History of Present Illness Consult date: 12/30/16 Requesting physician: Freddy Salinas Consult reason: sycope Chief complaint: Syncope History of present illness: This is a 76-year-old gentleman with known history of hypertension, hyperlipidemia, cardiomyopathy with prior IV AICD, prior TIA, paroxysmal atrial fibrillation, aortic aneurysm, prior mitral valve replacement, stage IV renal failure, GERD, who follows with Dr. Gordon as his director of community life. He presented to the hospital following an episode of syncope. According to the patient, he states that he was in the parking lot and an appointment with Dr. Leonard. He stood up out of the car and attempted to walk with his cane but states he became extremely lightheaded, he asked his to go around to get the walker and the next thing he recalls is waking up on the ground. Patient did hit his head on the ground. July of this year, patient had a fall at home he states he did not pass out at that time but tripped over an uneven, he did incur a compression fracture of L2 at that time for which he sees Dr. Pelletier and may be scheduled for surgery. According to the , patient has also been told in the past to have orthostatic hypotension. She also states that the patient has not been eating and drinking much at home and has been losing weight. Blood pressure on arrival here 155/70 with a heart rate in the 70s, 98 % on room air. White blood cell count 13.4, hemoglobin 13.9, platelet count 400. INR 4.5. Potassium 4.5, BUN 36, creatinine 2.1. Troponin 0.012. EKG on arrival showed a ventricular paced rhythm with occasional PVC. CT of the brain did not reveal any acute intracranial hemorrhage or midline shift. Chest x-ray did not reveal any significant findings. Lumbar spine x-ray revealed fracture of L2. Infra renal aortic aneurysm measuring approximately 5.2 also noted. At the time of my examination, patient is lying flat in bed, complains of generalized pain all over. Denies any dizziness or lightheadedness at present. Past Medical History Past Medical History: Atrial Fibrillation, Heart Failure, CVA/TIA, GERD/Reflux, Hearing Disorder / Deafness, Hyperlipidemia, Hypertension, Prostate Disorder, Renal Disease, Skin Disorder Additional Past Medical History / Comment(s): HX BARRETTS ESOPHAGUS, TIA, BELLS PALSY, aortic aneurysm being monitored, psoriasis, stage 4 kidney disease, enlarged prostate, NON CANCEROUS LESION REMOVED FROM RIGHT NOSTRIL, FELL BACK INJURY L2/L5 VERTEBRAE fractured, vitamin D deficiency. History of Any Multi-Drug Resistant Organisms: None Reported Past Surgical History: AICD, Appendectomy, Cardiac Valve Replacement, Cholecystectomy, Joint Replacement, Orthopedic Surgery, Tonsillectomy Additional Past Surgical History / Comment(s): 2006 MITRAL VALVE REPLACED, RIGHT EYE SURGERY D/T INJURY, left shoulder replacement, total of 7 bilateral shoulder surgeries, pain clinic procedures, radio frequency tx for Jenkins's, EGD/colonoscopy, riky cataracts removed with lens implants, Past Anesthesia/Blood Transfusion Reactions: Previous Problems w/ Anesthesia Additional Past Anesthesia/Blood Transfusion Reaction / Comment(s): confused for 21 days after mitral valve replacement at [facility] in 2006 Type of Cardiac Device: AICD Device Placement Date:: 2014.[employer]-serial [id number], model [id number] Past Psychological History: Anxiety, Depression Additional Psychological History / Comment(s): Pt resides with his spouse. He uses a cane or walker to ambulate. He drives. Smoking Status: Former smoker Past Alcohol Use History: None Reported Additional Past Alcohol Use History / Comment(s): quit smoking 1988, smoked for about 20 yrs- 1 PPD Past Drug Use History: None Reported - Past Family History Sister(s) Family Medical History: Cancer Father Family Medical History: Congestive Heart Failure (CHF), Eye Disorder, Rheumatoid Arthritis (RA) Additional Family Medical History / Comment(s): Father had macular degeneration. He at the age of 83yrs. Mother Family Medical History: Dementia Additional Family Medical History / Comment(s): Mother at the age of 81yrs. Medications and Allergies Home Medications Medication Instructions Recorded Confirmed Type FLUoxetine HCL [PROzac] 20 mg PO W/SUPPER 11/24/13 12/29/16 History Folic Acid 1 mg PO W/SUPPER 11/24/13 12/29/16 History Methotrexate Sodium [Methotrexate] 5 mg PO FR 11/24/13 12/29/16 History Pantoprazole Sodium [Protonix] 40 mg PO BID 11/24/13 12/29/16 History Tamsulosin [Flomax] 0.4 mg PO W/SUPPER 12/01/13 12/29/16 History Calcitriol 0.5 mcg PO WEFR 05/29/16 12/29/16 History Donepezil [Aricept] 5 mg PO HS 05/29/16 12/29/16 History Furosemide [Lasix] 20 mg PO QAM 05/29/16 12/29/16 History Magnesium Oxide 400 mg PO QAM 05/29/16 12/29/16 History Warfarin [Coumadin] 1 mg PO SUMOWETHFRSA 05/29/16 12/29/16 History Aspirin EC [Ecotrin Low Dose] 81 mg PO QAM 09/09/16 12/29/16 History Atorvastatin Calcium [Lipitor] 40 mg PO QAM 09/09/16 12/29/16 History Metoprolol Tartrate [Lopressor] 12.5 mg PO BID 09/09/16 12/29/16 History Warfarin [Coumadin] 1.5 mg PO TU 09/09/16 12/29/16 History CHLORPHEN-HYDROcod 8-10mg/5ml 5 ml PO Q12HR PRN 12/29/16 12/29/16 History [Tussionex] Cholecalciferol [Vitamin D3] 400 unit PO DAILY 12/29/16 12/29/16 History Dronabinol [Marinol] 2.5 mg PO QID 12/29/16 12/29/16 History HYDROcodone/APAP 7.5-325MG [[place] 1 tab PO BID PRN 12/29/16 12/29/16 History 7.5-325] Allergies Allergy/AdvReac Type Severity Reaction Status Date / Time fentanyl AdvReac Nausea Verified 12/29/16 11:43 levofloxacin [From Levaquin] AdvReac Hallucinati Verified 12/29/16 11:43 ons methadone [Methadone] AdvReac Nausea Verified 12/29/16 11:43 morphine AdvReac Nausea Verified 12/29/16 11:43 oxycodone HCl AdvReac Leg Cramps Verified 12/29/16 11:43 [From OxyContin] Physical Exam Vitals: Vital Signs Temp Pulse Pulse Resp BP BP BP 12/30/16 08:00 96.9 F L 79 16 152/70 12/30/16 04:00 97.1 F L 70 16 126/58 12/30/16 00:00 97.1 F L 72 17 125/53 12/29/16 20:00 97.3 F L 73 18 137/67 12/29/16 16:00 98.1 F 79 18 130/75 99/58 12/29/16 15:40 74 18 12/29/16 13:50 97.5 F L 79 18 134/64 12/29/16 13:02 97.8 F 70 18 128/61 12/29/16 11:01 97.8 F 75 18 155/74 Pulse Ox 12/30/16 08:00 100 12/30/16 04:00 98 12/30/16 00:00 97 12/29/16 20:00 100 12/29/16 16:00 97 12/29/16 15:40 12/29/16 13:50 96 12/29/16 13:02 94 L 12/29/16 11:01 98 Intake and Output 12/29/16 12/30/16 12/30/16 22:59 06:59 14:59 Intake Total 240 1100 Output Total 200 950 Balance 40 150 Intake: Intake, IV Titration 300 Amount Lactated Ringers 1,000 ml 300 @ 75 mls/hr IV .[id number] [facility] Rx#:[id number] Oral 240 800 Output: Urine 200 950 Other: Voiding Method Urinal Urinal Urinal # Voids 0 2 Weight 94.4 kg 94.4 kg Patient Weight 12/31/16 06:59 Weight 94.4 kg PHYSICAL EXAMINATION: HEENT: Head is atraumatic, normocephalic. Pupils equal, round. Neck is supple. There is no elevated jugular venous pressure. HEART EXAMINATION: Heart S1 and S2 systolic murmur is heard. CHEST EXAMINATION: Lungs are clear to auscultation and precussion. No chest wall tenderness is noted on palpation or with deep breathing. ABDOMEN: Soft, nontender. Bowel sounds are heard. No organomegaly noted. EXTREMITIES: 2+ peripheral pulses with no evidence of peripheral edema and no calf tenderness noted. NEUROLOGIC patient is awake, alert and oriented -3. . Results 12/29/16 11:12 12/29/16 11:12 Cardiac Enzymes 12/29/16 12/29/16 Range/Units 11:12 11:12 AST 40 (17-59) U/L CK-MB (CK-2) 1.1 (0.0-2.4) ng/mL Troponin I <0.012 (0.000-0.034) ng/mL Coagulation 12/29/16 Range/Units 11:12 PT 44.9 H (9.0-12.0) sec APTT 35.7 H (22.0-30.0) sec CBC 12/29/16 Range/Units 11:12 WBC 13.4 H (3.8-10.6) k/uL RBC 5.57 (4.30-5.90) m/uL Hgb 13.9 (13.0-17.5) gm/dL Hct 44.0 (39.0-53.0) % Plt Count 400 (150-450) k/uL Comprehensive Metabolic Panel 12/29/16 Range/Units 11:12 Sodium 137 (137-145) mmol/L Potassium 4.5 (3.5-5.1) mmol/L Chloride 103 (98-107) mmol/L Carbon Dioxide 22 (22-30) mmol/L BUN 36 H (9-20) mg/dL Creatinine 2.18 H (0.66-1.25) mg/dL Glucose 141 H (74-99) mg/dL Calcium 9.1 (8.4-10.2) mg/dL AST 40 (17-59) U/L ALT 30 (21-72) U/L Alkaline Phosphatase 92 (38-126) U/L Total Protein 6.4 (6.3-8.2) g/dL Albumin 3.9 (3.5-5.0) g/dL Current Medications Generic Name Dose Route Start Last Admin Trade Name Freq PRN Reason Stop Dose Admin Hydrocodone Bitart/Acetaminophen 1 each 12/29/16 15:30 12/30/16 09:01 [place] 7.5-325 PO 1 each BID MARIA GUADALUPE Administration Aspirin 81 mg 12/30/16 09:00 12/30/16 09:00 Aspirin PO 81 mg QAM MARIA GUADALUPE Administration Atorvastatin Calcium 40 mg 12/30/16 09:00 12/30/16 09:00 Lipitor PO 40 mg QAM MARIA GUADALUPE Administration Calcitriol 0.5 mcg 01/03/17 09:00 Rocaltrol PO WEFR MARIA GUADALUPE Chlorphenir/Hydrocodone Polistirex 5 ml 12/29/16 14:38 Tussionex PO Q12HR PRN [place] Cholecalciferol 400 unit 12/30/16 09:00 12/30/16 09:01 Vitamin D3 PO 400 unit DAILY MARIA GUADALUPE Administration Donepezil HCl 5 mg 12/29/16 21:00 12/29/16 20:21 Aricept PO 5 mg HS MARIA GUADALUPE Administration Dronabinol 5 mg 12/29/16 17:30 12/30/16 06:32 Marinol PO 5 mg AC-BID MARIA GUADALUPE Administration Fluoxetine HCl 20 mg 12/29/16 17:30 12/29/16 16:27 Prozac PO 20 mg W/SUPPER MARIA GUADALUPE Administration Folic Acid 1 mg 12/29/16 17:30 12/29/16 16:28 Folic Acid PO 1 mg W/SUPPER MARIA GUADALUPE Administration Lactated Ringer's 1,000 mls @ 75 mls/hr 12/29/16 16:30 12/30/16 06:32 Lactated Ringers IV 75 mls/hr .[id number] MARIA GUADALUPE Administration Magnesium Oxide 400 mg 12/30/16 09:00 12/30/16 09:01 Mag-Ox PO 400 mg QAM MARIA GUADALUPE Administration Methotrexate 5 mg 01/05/17 09:00 Methotrexate PO FR MARIA GUADALUPE Metoprolol Tartrate 12.5 mg 12/29/16 21:00 12/30/16 09:01 Lopressor PO 12.5 mg BID MARIA GUADALUPE Administration Naloxone HCl 0.2 mg 12/29/16 12:56 Narcan IV Q2M PRN Opioid Reversal Pantoprazole Sodium 40 mg 12/29/16 17:30 12/30/16 06:32 Protonix PO 40 mg AC-BID MARIA GUADALUPE Administration Tamsulosin HCl 0.4 mg 12/29/16 17:30 12/29/16 16:28 Flomax PO 0.4 mg W/SUPPER MARIA GUADALUPE Administration Warfarin Sodium 1 mg 12/29/16 14:45 [facility] Warfarin Sodium 1.5 mg 01/02/17 14:44 Coumadin PO [facility] Intake and Output 12/29/16 12/30/16 12/30/16 22:59 06:59 14:59 Intake Total 240 1100 Output Total 200 950 Balance 40 150 Intake: Intake, IV Titration 300 Amount Lactated Ringers 1,000 ml 300 @ 75 mls/hr IV .[id number] [facility] Rx#:[id number] Oral 240 800 Output: Urine 200 950 Other: Voiding Method Urinal Urinal Urinal # Voids 0 2 Weight 94.4 kg 94.4 kg Patient Weight 12/31/16 06:59 Weight 94.4 kg 12/29/16 11:12 12/29/16 11:12 EKG Interpretations (text) EKG shows a ventricular paced rhythm with occasional PVC. Assessment and Plan Plan: Assessment and plan #1 syncope rule out cardiac causes. Patient underwent a cardiac catheterization and Brady Sims in October of this year, was told to have no significant obstructive coronary artery disease. Carotid duplex study did not reveal any significant obstructive disease. #2 history of mitral valve replacement #3 prior TIA #4 bi V AICD ([employer]tronic) #5 nonischemic cardiomyopathy #6 stage IV renal failure #7 hypertension #8 hyperlipidemia #9 paroxysmal atrial fibrillation, on Coumadin for anticoagulation. INR 4.5. #10 L2 fracture from a fall in July. Plan We will obtain an echocardiogram with Doppler study. We will check orthostatic heart rate and blood pressure every shift. We will also have the patient's defibrillator interrogated. Continue to monitor for any tachycardia or bradycardia arrhythmias.Further recommendations will be based on these findings and patient's clinical course. DNP note has been reviewed, I agree with a documented findings and plan of care. Patient was seen and examined.
[2016-12-30 10:47] LABS: Calcium 8.6 mg/dL (8.4-10.2)
[2016-12-30 10:50] LABS: INR 3.6 (<1.1); Prothrombin Time 35.4 sec (9.0-12.0)
[2016-12-30 12:04] VITALS: BMI 29.0
--- NOTE | 2016-12-30 13:41 | P.CNPUL ---
History of Present Illness Consult date: 12/30/16 Chief complaint: Syncope History of present illness: A 76-year-old male patient, a primary of Dr. Lewis , with known history of extensive cardiovascular disease including cardiomyopathy with a previous AICD placement, coronary artery disease, paroxysmal atrial fibrillation, abdominal aortic aneurysm, mitral valve replacement and the patient is also known to have stage IV chronic chronic renal failure. The patient is known to have an infrarenal aortic aneurysm measuring 5.2 cm in size. The patient got in to the emergency department after the patient had an episode of syncope. Apparently the patient was in a parking lot going to have an appointment with Dr. Ramsay. After getting out of the car he thought he was given be able to walk around with the help of a cane. He asked his to get his walker and then he became extremely lightheaded and dizzy and he collapsed. He lost consciousness only for fraction of seconds and then he regained. He continued to be dizzy and lightheaded after EMS came in to the scene. The patient has had previous similar episodes. He did not have chest pain or palpitation. No seizure activity. No focal neurological deficit. Apparently has not been eating and drinking well over the past few months and the patient had lost approximately 10 pounds. In the ED, his initial blood pressure was 155/70 with a heart rate in the 70s and a pulse ox of 98% on room air. His renal function showed a creatinine of 2.1. Troponin was at 0.012. EKG showed a ventricular paced rhythm with occasional PVCs. CAT scan of the brain did not show any acute abnormalities. Chest x-ray shows stable findings. Lumbar spine showed a previous fracture at the level of L2. The Doppler of the carotids that showed nonocclusive disease. The patient be seen by cardiology and neurology. Review of Systems All systems: negative Constitutional: Denies chills, Denies fever Eyes: denies blurred vision, denies pain Ears, nose, mouth and throat: Denies headache, Denies sore throat Cardiovascular: Denies chest pain, Denies shortness of breath Respiratory: Denies cough Gastrointestinal: Denies abdominal pain, Denies diarrhea, Denies nausea, Denies vomiting Musculoskeletal: Denies myalgias Integumentary: Denies pruritus, Denies rash Neurological: Denies numbness, Denies weakness Psychiatric: Denies anxiety, Denies depression Endocrine: Denies fatigue, Denies weight change Past Medical History Past Medical History: Atrial Fibrillation, Heart Failure, CVA/TIA, GERD/Reflux, Hearing Disorder / Deafness, Hyperlipidemia, Hypertension, Prostate Disorder, Renal Disease, Skin Disorder Additional Past Medical History / Comment(s): Coronary artery disease with recent cardiac catheterization showing nonocclusive disease and this was done at 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 , vitamin D deficiency, not cancerous lesion removed from the right nostril, chronic back pain, weight loss, psoriasis History of Any Multi-Drug Resistant Organisms: None Reported Past Surgical History: AICD, Appendectomy, Cardiac Valve Replacement, Cholecystectomy, Joint Replacement, Orthopedic Surgery, Tonsillectomy Additional Past Surgical History / Comment(s): 2006 MITRAL VALVE REPLACED, RIGHT EYE SURGERY D/T INJURY, left shoulder replacement, total of 7 bilateral shoulder surgeries, pain clinic procedures, radio frequency tx for Jenkins's, EGD/colonoscopy, riky cataracts removed with lens implants, Past Anesthesia/Blood Transfusion Reactions: Previous Problems w/ Anesthesia Additional Past Anesthesia/Blood Transfusion Reaction / Comment(s): confused for 21 days after mitral valve replacement at [facility] in 2006 Type of Cardiac Device: AICD Device Placement Date:: 2014.Medtronic-serial [id number], model [id number] Past Psychological History: Anxiety, Depression Additional Psychological History / Comment(s): Pt resides with his spouse. He uses a cane or walker to ambulate. He drives. Smoking Status: Former smoker Past Alcohol Use History: None Reported Additional Past Alcohol Use History / Comment(s): quit smoking 1988, smoked for about 20 yrs- 1 PPD Past Drug Use History: None Reported - Past Family History Sister(s) Family Medical History: Cancer Father Family Medical History: Congestive Heart Failure (CHF), Eye Disorder, Rheumatoid Arthritis (RA) Additional Family Medical History / Comment(s): Father had macular degeneration. He at the age of 83yrs. Mother Family Medical History: Dementia Additional Family Medical History / Comment(s): Mother at the age of 81yrs. Medications and Allergies Home Medications Medication Instructions Recorded Confirmed Type FLUoxetine HCL [PROzac] 20 mg PO W/SUPPER 11/24/13 12/29/16 History Folic Acid 1 mg PO W/SUPPER 11/24/13 12/29/16 History Methotrexate Sodium [Methotrexate] 5 mg PO FR 11/24/13 12/29/16 History Pantoprazole Sodium [Protonix] 40 mg PO BID 11/24/13 12/29/16 History Tamsulosin [Flomax] 0.4 mg PO W/SUPPER 12/01/13 12/29/16 History Calcitriol 0.5 mcg PO WEFR 05/29/16 12/29/16 History Donepezil [Aricept] 5 mg PO HS 05/29/16 12/29/16 History Furosemide [Lasix] 20 mg PO QAM 05/29/16 12/29/16 History Magnesium Oxide 400 mg PO QAM 05/29/16 12/29/16 History Warfarin [Coumadin] 1 mg PO SUMOWETHFRSA 05/29/16 12/29/16 History Aspirin EC [Ecotrin Low Dose] 81 mg PO QAM 09/09/16 12/29/16 History Atorvastatin Calcium [Lipitor] 40 mg PO QAM 09/09/16 12/29/16 History Metoprolol Tartrate [Lopressor] 12.5 mg PO BID 09/09/16 12/29/16 History Warfarin [Coumadin] 1.5 mg PO TU 09/09/16 12/29/16 History CHLORPHEN-HYDROcod 8-10mg/5ml 5 ml PO Q12HR PRN 12/29/16 12/29/16 History [Tussionex] Cholecalciferol [Vitamin D3] 400 unit PO DAILY 12/29/16 12/29/16 History Dronabinol [Marinol] 2.5 mg PO QID 12/29/16 12/29/16 History HYDROcodone/APAP 7.5-325MG [[place] 1 tab PO BID PRN 12/29/16 12/29/16 History 7.5-325] Allergies Allergy/AdvReac Type Severity Reaction Status Date / Time fentanyl AdvReac Nausea Verified 12/29/16 11:43 levofloxacin [From Levaquin] AdvReac Hallucinati Verified 12/29/16 11:43 ons methadone [Methadone] AdvReac Nausea Verified 12/29/16 11:43 morphine AdvReac Nausea Verified 12/29/16 11:43 oxycodone HCl AdvReac Leg Cramps Verified 12/29/16 11:43 [From OxyContin] Physical Exam Vitals: Vital Signs Temp Pulse Pulse Resp BP BP BP 12/30/16 12:00 72 16 132/67 12/30/16 08:00 96.9 F L 79 16 12/30/16 04:00 97.1 F L 70 16 126/58 12/30/16 00:00 97.1 F L 72 17 125/53 12/29/16 20:00 97.3 F L 73 18 137/67 12/29/16 16:00 98.1 F 79 18 130/75 12/29/16 15:40 74 18 12/29/16 13:50 97.5 F L 79 18 134/64 BP Pulse Ox 12/30/16 12:00 100 12/30/16 08:00 152/70 100 12/30/16 04:00 98 12/30/16 00:00 97 12/29/16 20:00 100 12/29/16 16:00 99/58 97 12/29/16 15:40 12/29/16 13:50 96 Intake and Output 12/29/16 12/30/16 12/30/16 22:59 06:59 14:59 Intake Total 240 1100 240 Output Total 200 950 Balance 40 150 240 Intake: Intake, IV Titration 300 Amount Lactated Ringers 1,000 ml 300 @ 75 mls/hr IV .[id number] [facility] Rx#:[id number] Oral 240 800 240 Output: Urine 200 950 Other: Voiding Method Urinal Urinal Urinal # Voids 0 2 Weight 94.4 kg 94.4 kg Patient Weight 12/31/16 06:59 Weight 94.4 kg The patient appeared well nourished and normally developed. Vital signs as documented. Head exam is unremarkable. No scleral icterus or corneal arcus noted. Neck is without jugular venous distension, thyromegaly, or carotid bruits. Carotid upstrokes are brisk bilaterally. Lungs are clear to auscultation and percussion. Cardiac exam reveals the PMI to be normally sized and situated. Rhythm is regular. First and second heart sounds normal. No murmurs, rubs or gallops. The sternal stable clean and intact. The patient is an AICD over the left anterior chest area. Abdominal exam reveals normal bowel sounds, no masses, no organomegaly and no aortic enlargement. Extremities are nonedematous and both femoral and pedal pulses are normal. Results - Laboratory Findings CBC and BMP: 12/29/16 11:12 12/30/16 06:07 PT/INR, D-dimer PT 35.4 sec (9.0-12.0) H 12/30/16 06:11 INR 3.6 (<1.1) 12/30/16 06:11 Abnormal lab findings: Abnormal Labs 12/29/16 12/29/16 12/29/16 11:12 11:12 11:12 WBC 13.4 H MCV 79.0 L MCH 24.9 L RDW 16.5 H Neutrophils # 10.7 H PT APTT BUN 36 H Creatinine 2.18 H Glucose 141 H Total Creatine Kinase 37 L 12/29/16 12/30/16 12/30/16 11:12 06:07 06:11 WBC MCV MCH RDW Neutrophils # PT 44.9 H 35.4 H APTT 35.7 H BUN 31 H Creatinine 2.06 H Glucose Total Creatine Kinase - Diagnostic Findings Chest x-ray: image reviewed Assessment and Plan Plan: Assessment 1 syncope on that investigation. Rule out orthostatic hypotension. Rule out cardiogenic syncope nontender the patient is an extensive cardiac history of cardiomyopathy and arrhythmias. 2 coronary artery disease with recent cardiac catheterization revealing nonobstructive disease 3 cardiomyopathy status post mitral valve replacement, status post biventricular AICD placement 4 stage IV renal failure 5 hypertension 6 hyperlipidemia 7 approximately atrial fibrillation maintained on long-term medical condition with Coumadin with an INR being at 4.5 8, carotid artery disease, non-hemodynamically significant 9 psoriasis on methotrexate 10 L2 fracture of the spine Plan Suggest interrogating the defibrillator. terrestrial ecologist for the next 24-48 hours here in the hospital. Neurology evaluation. We'll follow.
[2016-12-30] MEDS: FLUDROCORTISONE 0.1 MG TAB PO SCH (15:34)
[2016-12-30] MEDS: FOLIC ACID 1 MG TAB PO SCH (18:43)
[2016-12-30] MEDS: FLUoxetine HCL 20 MG CAP PO SCH (18:43)
[2016-12-30] MEDS: TAMSULOSIN 0.4 MG CAP.ER.24H PO SCH (18:44)
[2016-12-30] MEDS: HYDROcodone/APAP 7.5-325MG 1 EACH TAB PO PRN (18:55)
--- NOTE | 2016-12-30 19:12 | P.NPCON ---
History of Present Illness - History of Present Illness I saw and examined patient earlier this morning for his CKD-3b/4. He is a very pleasant 76-year-old male well known to our group for his underlying CKD. Curently under care of . Yesterday when he went for CKD appointment as he was trying to get out of car he felt very dizzy and lightheaded and fell on the floor hittng his head on the ground. He denies any LOC. Blood pressure on arrival here 155/70 with a heart rate in the 70s, 98% on room air. EKG on arrival showed a ventricular paced rhythm with occasional PVC. CT of the brain did not reveal any acute intracranial hemorrhage or midline shift. Chest x-ray did not reveal any significant findings. Lumbar spine x-ray revealed fracture of L2 and infra renal aortic aneurysm measuring approximately 5.2 .No documented orthostatic vitals since admission. He is feeling sore all over his body. Denying any chest pain, palpitations. He really wants to go home as his kids had alliance party planned for him for . His PMH is significant for CKD-4,hypertension, hyperlipidemia, cardiomyopathy with prior IV AICD, prior TIA, paroxysmal atrial fibrillation, aortic aneurysm, prior mitral valve replacement, GERD, Psoriasis for which restarted his methotrexate recently. Creatinine seems to be around his baseline of 2.0.Denying any urinary complaints. Review of Systems Constitutiona Symptoms: No fever,weight loss or fatigues. ROS systems negative. Pertinent findings as per [facility]. Past Medical History Past Medical History: Atrial Fibrillation, Heart Failure, CVA/TIA, GERD/Reflux, Hearing Disorder / Deafness, Hyperlipidemia, Hypertension, Prostate Disorder, Renal Disease, Skin Disorder Additional Past Medical History / Comment(s): Coronary artery disease with recent cardiac catheterization showing nonocclusive disease and this was done at [facility], cardiomyopathy with impaired LV function, AICD placement , previous history of TIA, approximately atrial fibrillation, mitral valve replacement, stage IV renal failure, GERD, infrarenal abdominal aortic aneurysm measuring 5.2 cm in size, previous fall, lumbar L2 spine fracture, GERD, prostate enlargement, hypertension, Jenkins's esophagus, 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 , vitamin D deficiency, not cancerous lesion removed from the right nostril, chronic back pain, weight loss, psoriasis History of Any Multi-Drug Resistant Organisms: None Reported Past Surgical History: AICD, Appendectomy, Cardiac Valve Replacement, Cholecystectomy, Joint Replacement, Orthopedic Surgery, Tonsillectomy Additional Past Surgical History / Comment(s): 2006 MITRAL VALVE REPLACED, RIGHT EYE SURGERY D/T INJURY, left shoulder replacement, total of 7 bilateral shoulder surgeries, pain clinic procedures, radio frequency tx for Jenkins's, EGD/colonoscopy, riky cataracts removed with lens implants, Past Anesthesia/Blood Transfusion Reactions: Previous Problems w/ Anesthesia Additional Past Anesthesia/Blood Transfusion Reaction / Comment(s): confused for 21 days after mitral valve replacement at [facility] in 2006 Type of Cardiac Device: AICD Device Placement Date:: 2014.[employer] [id number], model [id number] Past Psychological History: Anxiety, Depression Additional Psychological History / Comment(s): Pt resides with his spouse. He uses a cane or walker to ambulate. He drives. Smoking Status: Former smoker Past Alcohol Use History: None Reported Additional Past Alcohol Use History / Comment(s): quit smoking 1988, smoked for about 20 yrs- 1 PPD Past Drug Use History: None Reported - Past Family History Sister(s) Family Medical History: Cancer Father Family Medical History: Congestive Heart Failure (CHF), Eye Disorder, Rheumatoid Arthritis (RA) Additional Family Medical History / Comment(s): Father had macular degeneration. He at the age of 83yrs. Mother Family Medical History: Dementia Additional Family Medical History / Comment(s): Mother at the age of 81yrs. Medications and Allergies Home Medications Medication Instructions Recorded Confirmed Type FLUoxetine HCL [PROzac] 20 mg PO W/SUPPER 11/24/13 12/29/16 History Folic Acid 1 mg PO W/SUPPER 11/24/13 12/29/16 History Methotrexate Sodium [Methotrexate] 5 mg PO FR 11/24/13 12/29/16 History Pantoprazole Sodium [Protonix] 40 mg PO BID 11/24/13 12/29/16 History Tamsulosin [Flomax] 0.4 mg PO W/SUPPER 12/01/13 12/29/16 History Calcitriol 0.5 mcg PO WEFR 05/29/16 12/29/16 History Donepezil [Aricept] 5 mg PO HS 05/29/16 12/29/16 History Furosemide [Lasix] 20 mg PO QAM 05/29/16 12/29/16 History Magnesium Oxide 400 mg PO QAM 05/29/16 12/29/16 History Warfarin [Coumadin] 1 mg PO SUMOWETHFRSA 05/29/16 12/29/16 History Aspirin EC [Ecotrin Low Dose] 81 mg PO QAM 09/09/16 12/29/16 History Atorvastatin Calcium [Lipitor] 40 mg PO QAM 09/09/16 12/29/16 History Metoprolol Tartrate [Lopressor] 12.5 mg PO BID 09/09/16 12/29/16 History Warfarin [Coumadin] 1.5 mg PO TU 09/09/16 12/29/16 History CHLORPHEN-HYDROcod 8-10mg/5ml 5 ml PO Q12HR PRN 12/29/16 12/29/16 History [Tussionex] Cholecalciferol [Vitamin D3] 400 unit PO DAILY 12/29/16 12/29/16 History Dronabinol [Marinol] 2.5 mg PO QID 12/29/16 12/29/16 History HYDROcodone/APAP 7.5-325MG [[place] 1 tab PO BID PRN 12/29/16 12/29/16 History 7.5-325] Allergies Allergy/AdvReac Type Severity Reaction Status Date / Time fentanyl AdvReac Nausea Verified 12/29/16 11:43 levofloxacin [From Levaquin] AdvReac Hallucinati Verified 12/29/16 11:43 ons methadone [Methadone] AdvReac Nausea Verified 12/29/16 11:43 morphine AdvReac Nausea Verified 12/29/16 11:43 oxycodone HCl AdvReac Leg Cramps Verified 12/29/16 11:43 [From OxyContin] Physical Exam Vitals: Vital Signs Temp Pulse Resp BP BP BP Pulse Ox 12/30/16 15:52 71 14 12/30/16 15:50 96.9 F L 71 14 138/66 100 12/30/16 12:00 72 16 132/67 100 12/30/16 08:00 96.9 F L 79 16 152/70 100 12/30/16 04:00 97.1 F L 70 16 126/58 98 12/30/16 00:00 97.1 F L 72 17 125/53 97 12/29/16 20:00 97.3 F L 73 18 137/67 100 Intake and Output 12/30/16 12/30/16 12/30/16 06:59 14:59 22:59 Intake Total 1100 480 Output Total 950 400 175 Balance 150 80 -175 Intake: Intake, IV Titration 300 Amount Lactated Ringers 1,000 ml 300 @ 75 mls/hr IV .[id number] MARIA GUADALUPE Rx#:[id number] Oral 800 480 Output: Urine 950 400 175 Other: Voiding Method Urinal Urinal Urinal # Voids 2 Weight 94.4 kg 94.4 kg 94.4 kg Patient Weight 12/31/16 06:59 Weight 94.4 kg - EENT Eyes: PERRLA - Respiratory Respiratory: bilateral: CTA - Cardiovascular RRR/S1/S2 - Gastrointestinal General gastrointestinal: normal bowel sounds, soft - Integumentary Integumentary: normal - Neurologic AOx3 .No gross focal motor defecit Results - Lab Results Most recent lab results Calcium 8.6 mg/dL (8.4-10.2) 12/30/16 06:07 12/29/16 11:12 12/30/16 06:07 Assessment and Plan Plan: Impression: 1.Near syncope episode: Seems orthostatic however given significant cardiac history r/o any cardiac component. 2.CKD3b/4:Creatinine seems to be around baseline of 2.0. Followed by outpatient 3.Incidental findings of infrarenal aneurysm: Needs outpatient follow up. 4.Recurrent falls: recommend PT /OT evaluation 5.Coronary Artery Disease:compensated at present. Plan: 1.Orthostatic vitals 2.Give another 1L IVF and then heplock 3.Hold Lasix 4.Strict I and O 5.PT/OT evaluation 6.Repeat BMP in am 7. Always check orthostatic vitals before titrating any of BP medications up.
[2016-12-30] MEDS: DONEPEZIL 5 MG TAB PO SCH (20:18)
[2016-12-31] MEDS: HYDROcodone/APAP 7.5-325MG 1 EACH TAB PO PRN ×2 (05:01→11:13)
[2016-12-31] MEDS: DRONABINOL 2.5 MG CAP PO SCH (06:27)
[2016-12-31] MEDS: PANTOPRAZOLE 40 MG TABLET PO SCH (06:27)
[2016-12-31 07:28] LABS: Calcium 8.6 mg/dL (8.4-10.2); Potassium 4.3 mmol/L (3.5-5.1)
--- NOTE | 2016-12-31 07:44 | ECHOF ---
Referral Reason:syncope MEASUREMENTS -------- HEIGHT: 182.9 cm WEIGHT: 94.3 kg BP: 152/70 IVSd: 1.1 cm (0.6 - 1.1) LVIDd: 3.0 cm (3.9 - 5.3) LVPWd: 1.3 cm (0.6 - 1.1) IVSs: 1.8 cm LVIDs: 2.4 cm LVPWs: 1.2 cm LAESV Index (A-L): 34.34 ml/m Ao Diam: 3.2 cm (2.0 - 3.7) AV Cusp: 1.6 cm (1.5 - 2.6) LA Diam: 5.2 cm (2.7 - 3.8) MV E Iain: 1.52 m/s MV DecT: 344 ms MV A Iain: 0.58 m/s MV E/A Ratio: 2.62 AR PHT: 426 ms RAP: 5.00 mmHg RVSP: 21.00 mmHg FINDINGS -------- Pacerwire seen in RV and RA. This was a technically good study. There is borderline concentric left ventricular hypertrophy. Overall left ventricular systolic function is low-normal with, an EF between 50 - 55 %. There is paradoxical/dysynergic septal motion consistent with post-operative status. The right ventricle is normal in size and function. LA is moderately dilated 34-39 ml/m2 RA appears enlarged. Aortic valve is trileaflet and is mildly thickened. There is mild aortic regurgitation. The peak and mean MV gradients are 11.64mmHg 3.86mmHg as measured by doppler. Normally functioning bioprosthetic mitral valve. Mild tricuspid regurgitation present. The right ventricular systolic pressure, as measured by Doppler, is 21.00mmHg. Pulmonic valve appears structurally normal. The aortic root size is normal. The pericardium is normal. CONCLUSIONS -------- 1. Pacerwire seen in RV and RA. 2. There is mild aortic regurgitation. 3. The peak and mean MV gradients are 11.64mmHg 3.86mmHg as measured by doppler. 4. Normally functioning bioprosthetic mitral valve. 5. Mild tricuspid regurgitation present. 6. The right ventricular systolic pressure, as measured by Doppler, is 21.00mmHg. 7. Pulmonic valve appears structurally normal. 8. The aortic root size is normal. 9. The pericardium is normal. 10. This was a technically good study. 11. There is borderline concentric left ventricular hypertrophy. 12. Overall left ventricular systolic function is low-normal with, an EF between 50 - 55 %. 13. There is paradoxical/dysynergic septal motion consistent with post-operative status. 14. The right ventricle is normal in size and function. 15. LA is moderately dilated 34-39 ml/m2 16. RA appears enlarged. 17. Aortic valve is trileaflet and is mildly thickened. PHYS THERAPIST: Gretchen Colbert RDCS
[2016-12-31] MEDS ORDERED: RX INFO: IV CONTRAST WAS GIVEN 1 EACH MISC MISCELLANE PRN (08:13)
[2016-12-31 09:12] VITALS: TEMP 97.4
[2016-12-31] MEDS: ASPIRIN 81 MG CHEW PO SCH (09:35)
[2016-12-31] MEDS: MAGNESIUM OXIDE 400 MG TAB PO SCH (09:35)
[2016-12-31] MEDS: ATORVASTATIN 40 MG TAB PO SCH (09:35)
[2016-12-31] MEDS: METOPROLOL TARTRATE 12.5 MG TAB PO SCH (09:36)
[2016-12-31] MEDS: CHOLECALCIFEROL 400 UNIT TAB PO SCH (09:36)
[2016-12-31] MEDS: FLUDROCORTISONE 0.1 MG TAB PO SCH (09:36)
--- NOTE | 2016-12-31 11:27 | PN ---
DATE OF SERVICE: 12/30/2016 PRESENTING COMPLAINT: Passed out. INTERVAL HISTORY: This patient had an episode of syncope. The patient apparently had orthostatic hypotension. I did stop patient's Lasix, started to hydrate him. Overall feeling much better. Did tolerate a diet. Review of systems done for constitutional, cardiovascular, GI, pulmonary relevant findings as above. Current medications are reviewed. Florinef was added. On examination, temperature 96.9, pulse 79, respiratory rate 16, blood pressure 122/70, pulse ox 100% on room air. GENERAL APPEARANCE: Lying in bed, tired appearing. EYES: Pupils equal. Conjunctivae normal. NECK: JVD not raised. Mass not palpable. RESPIRATORY: Effort normal. LUNGS: Decreased breath sounds. CARDIOVASCULAR: Heart sounds irregular. No edema. ABDOMEN: Soft, nontender. Liver and spleen not palpable. Psychiatric: Awake, answering questions appropriately. INVESTIGATIONS: INR 3.6, potassium 4. BUN 31, creatinine 2.06. Patient did have carotid Doppler did not show any significant stenosis. ASSESSMENT: 1. Syncope, vasovagal due to orthostatic hypertension in a patient who was on Lasix now discontinued, being hydrated. 2. Persistent atrial fibrillation with a paced rhythm. 3. Chronic congestive heart failure. Ejection fraction not known. 4. Gastroesophageal reflux disease. 5. Hyperlipidemia. 6. Essential hypertension. 7. Jenkins's esophagus. 8. Abdominal aortic aneurysm, size unknown. 9. 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 10. Benign prostatic hypertrophy. 11. Chronic L2 vertebral fracture. 12. Vitamin D deficiency. 13. Coumadin monitoring, supratherapeutic. PLAN: Patient during overall much better. Florinef was added earlier. Patient's symptoms are getting better. We will have patient recheck orthostatics.
--- NOTE | 2016-12-31 11:36 | CT ---
EXAMINATION TYPE: CT abdomen pelvis wo con DATE OF EXAM: 12/31/2016 HISTORY: [id number] up, abnormal CT lumbar spine study. CT DLP: 1362.80 mGycm. Automated Exposure Control for Dose Reduction was Utilized. TECHNIQUE: CT scan of the abdomen and pelvis is performed without oral or IV contrast. COMPARISON: CT lumbar spine from [address] abdomen and pelvis May 25, 2011. FINDINGS: Withi n the limitations of a non-contrast study, the following observations are made. LUNG BASES: There is patchy left basilar linear scarring. Sternal wires and pacer/defibrillator wires as well as external and epicardial wires are all noted. Left atrium is moderately dilated. LIVER/GB: Cholecystectomy clips are noted. PANCREAS: No significant abnormality is seen. SPLEEN: No significant abnormality is seen. ADRENALS: No significant abnormality is seen. KIDNEYS: Kidneys are somewhat small in size with cortical thinning consistent with product of chronic medical renal disease. BOWEL: There are diverticula in the left and sigmoid colon redemonstrated. There is no CT evidence fo r acute diverticulitis. There is no suspicious small or large bowel dilatation. GENITAL ORGANS: Prostate gland is felt upper limits of normal size bulging on bladder base. LYMPH NODES: No greater than 1cm abdominal or pelvic lymph nodes are appreciated. OSSEOUS STRUCTURES: Redemonstration of subacute mild to borderline moderate compression type fracture at superior L2 endplate. There is moderate multilevel spurring in the spine. There is moderate joint space loss with acetabular spurring in both hip joints. Some sclerosis and narrowing of both sacroil iac joints is present. OTHER: There is large wide neck ventral wall hernia near level of umbilicus containing fat and tiny m esenteric vessels seen best axial image 57 redemonstrated unchanged from 2011. There is ectatic course to the abdominal aorta. Aneurysm is confirmed and measures 4.4 x 4.1 cm on ax ial image 44. Length of aneurysm is 5 to 6 cm. Aneurysm does not extend to iliac bifurcation. Moderat e calcified plaque in the aorta and iliac branch vessels is present. IMPRESSION: 1. A 4.4 cm infrarenal abdominal aortic aneurysm is confirmed. There is slight progression from [address] CT. 2. Age-indeterminate but suspected subacute on chronic mild to moderate compression fracture superior endplate L2 level given patient's history of fracture in July redemonstrated.
[2016-12-31 12:09] LABS: INR 3.2 (<1.1); Prothrombin Time 31.1 sec (9.0-12.0)
--- NOTE | 2016-12-31 12:16 | P.PN ---
Subjective A 76-year-old male patient, a primary of Dr. Lewis , with known history of extensive cardiovascular disease including cardiomyopathy with a previous AICD placement, coronary artery disease, paroxysmal atrial fibrillation, abdominal aortic aneurysm, mitral valve replacement and the patient is also known to have stage IV chronic chronic renal failure. The patient is known to have an infrarenal aortic aneurysm measuring 5.2 cm in size. The patient got in to the emergency department after the patient had an episode of syncope. Apparently the patient was in a parking lot going to have an appointment with Dr. Ramsay. After getting out of the car he thought he was given be able to walk around with the help of a cane. He asked his to get his walker and then he became extremely lightheaded and dizzy and he collapsed. He lost consciousness only for fraction of seconds and then he regained. He continued to be dizzy and lightheaded after EMS came in to the scene. The patient has had previous similar episodes. He did not have chest pain or palpitation. No seizure activity. No focal neurological deficit. Apparently has not been eating and drinking well over the past few months and the patient had lost approximately 10 pounds. In the ED, his initial blood pressure was 155/70 with a heart rate in the 70s and a pulse ox of 98% on room air. His renal function showed a creatinine of 2.1. Troponin was at 0.012. EKG showed a ventricular paced rhythm with occasional PVCs. CAT scan of the brain did not show any acute abnormalities. Chest x-ray shows stable findings. Lumbar spine showed a previous fracture at the level of L2. The Doppler of the carotids that showed nonocclusive disease. The patient be seen by cardiology and neurology. On 12/31/2016 the patient is doing well. No further episodes of syncope. The patient is hemodynamically stable. The pacemaker was interrogated and there is no evidence of any cardiac arrhythmias. A CAT scan of the abdomen is to follow regarding the abdominal aortic aneurysm nontender the patient has a 5. aneurysm and his abdominal aorta. INR is therapeutic at 3.2. Creatinine is stable at 1.9. Objective - Vital Signs Vital signs: Vital Signs Temp 97.4 F L 12/31/16 08:45 Pulse 60 12/31/16 08:45 Resp 16 12/31/16 08:45 BP 126/65 12/31/16 08:45 Pulse Ox 98 12/31/16 10:31 Intake & Output 12/30/16 12/31/16 12/31/16 18:59 06:59 18:59 Intake Total 480 1080 Output Total 575 2050 Balance -95 -970 Weight 94.4 kg 96.7 kg Intake: Intake, IV Titration 600 Amount Lactated Ringers 1,000 ml 600 @ 75 mls/hr IV .[id number] MARIA GUADALUPE Rx#:[id number] Oral 480 480 Output: Urine 575 0 Other: Voiding Method Urinal Urinal Toilet Urinal # Voids 1 - Exam The patient appeared well nourished and normally developed. Vital signs as documented. Head exam is unremarkable. No scleral icterus or corneal arcus noted. Neck is without jugular venous distension, thyromegaly, or carotid bruits. Carotid upstrokes are brisk bilaterally. Lungs are clear to auscultation and percussion. Cardiac exam reveals the PMI to be normally sized and situated. Rhythm is regular. First and second heart sounds normal. No murmurs, rubs or gallops. The sternal stable clean and intact. The patient is an AICD over the left anterior chest area. Abdominal exam reveals normal bowel sounds, no masses, no organomegaly and no aortic enlargement. Extremities are nonedematous and both femoral and pedal pulses are normal. - Labs CBC & Chem 7: 12/29/16 11:12 12/31/16 06:23 Labs: Abnormal Lab Results - Last 24 Hours (Table) 12/31/16 12/31/16 Range/Units 06:23 06:23 PT 31.1 H (9.0-12.0) sec BUN 25 H (9-20) mg/dL Creatinine 1.90 H (0.66-1.25) mg/dL Assessment and Plan Plan: Assessment 1 syncope on that investigation. Rule out orthostatic hypotension. Rule out cardiogenic syncope nontender the patient is an extensive cardiac history of cardiomyopathy and arrhythmias. On 12/31/2016. The patient remains stable. The patient has had no further episodes of syncope. Hemodynamically stable. Pacemaker was interrogated and there is no evidence of any cardiac arrhythmias noted. 2 coronary artery disease with recent cardiac catheterization revealing nonobstructive disease 3 cardiomyopathy status post mitral valve replacement, status post biventricular AICD placement 4 stage IV renal failure 5 hypertension 6 hyperlipidemia 7 approximately atrial fibrillation maintained on long-term medical condition with Coumadin with an INR being at 4.5 8, carotid artery disease, non-hemodynamically significant 9 psoriasis on methotrexate 10 L2 fracture of the spine Plan Monitor the patient. Continue anticoagulation. CAT scan of the abdomen to follow-up on the abdominal aortic aneurysm. Discharge planning is in progress.
[2016-12-31 12:59] VITALS: BP 119/70; PULSE 69; RESP 17
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
--- NOTE | 2016-12-31 14:11 | PN ---
Mr. Wright is being followed for his CKD was initially admitted status post near syncopal episode yesterday. Orthostatic vitals were not documented at time of admission. He was started on some gentle IV hydration. Later in the evening yesterday orthostatic vitals were negative. It seems he was started on Florinef at 0.05 mg to be careful especially with his known history of hypertension. He is clinically doing much better. It seems his pacemaker was also interrogated per patient. He was told everything is normal. Carotid Doppler also pending at this time. He is really eager to go home. Other than feeling sore after the fall, he feels back to his baseline. No other overnight events. PHYSICAL EXAMINATION: VITAL SIGNS: Blood pressure 132/62 lying, sitting 125/60, standing 120/68, sats 97 on room air, pulse rate 78 per minute. GENERAL APPEARANCE: The patient lying comfortably flat in bed. No acute distress. LUNGS: Clear to auscultation bilaterally. CARDIOVASCULAR: Regular rate and rhythm. S1, S2. ABDOMEN: Soft, nontender. EXTREMITIES: Bilateral pulses, no edema. LABORATORY DATA: Creatinine 1.9, BUN 25, sodium 138, potassium 4.3, chloride 105, CO2 of 27, calcium 89. IMPRESSION: 1. Chronic kidney disease, stage IV, creatinine at baseline. Etiology arterionephrosclerosis. 2. Near syncopal episodes, seems more vasovagal. Orthostatic this morning negative. Cardiology work-up so far negative. 3. History of psoriasis. Currently on methotrexate. 4. Hypertension with underlying chronic kidney disease. Blood pressure stable. No orthostatic symptoms. RECOMMENDATIONS: 1. Discontinue IV fluids. 2. From nephro standpoint patient can be discharged any time with close follow-up with Dr. Leonard outpatient. 3. Educated patient for slow change in position from sitting to standing. 4. Careful use of Florinef especially with underlying history of hypertension and no documented evidence of orthostatic drop at the moment. Thank you, Dr. Salinas for allowing me to participate in taking care of this patient. We will follow the patient along with you.
--- NOTE | 2016-12-31 17:14 | CONS ---
DATE OF CONSULTATION: This is a 76-year-old gentleman who is under the care of Dr. Salinas with chronic stable medical condition including atrial fibrillation, hypertension, congestive heart failure, hyperlipidemia, Jenkins's esophagus, abdominal aortic aneurysm, chronic kidney disease, chronic L2, L5 fracture. The patient fell down at home and he was brought in for work-up including CT scan of the abdomen and patient has infrarenal 4.4 cm abdominal aortic aneurysm, which is stable and no evidence of leak or dissection. On examination, patient was seen in his room. His vital signs are stable. NECK: Supple. Trachea central. Chest is clear to auscultation. First and second sounds normal. Abdomen is soft. Femoral pulses are palpable and no peritoneal sign noted. Aorta is nontender. IMPRESSION: A 4.4 cm stable abdominal aortic aneurysm. At this point, patient does not need any surgical intervention. Follow up with Dr. Randolph Busby. He has been following in his office on a regular basis.
--- NOTE | 2016-12-31 17:22 | PN ---
This gentleman presented with syncope. He had ICD, which was interrogated and there is no evidence of any shock or any tachyarrhythmia. It appears that he may have had an orthostatic hypotension-type picture and I placed him already on Florinef 0.05 mg to be taken daily and increased after 3 weeks. His blood pressure is good. He has no orthostatic changes, ambulating without symptoms. Vital signs are stable. S1 and S2 heard normally. Lungs are clear. Abdomen and lower extremity exams unchanged. Echo revealed preserved systolic function. Patient can be discharged and will follow with his own professor of practice in the [place] area.
--- NOTE | 2017-01-02 08:42 | DS ---
DATE OF ADMISSION: 12/29/2016 DATE OF DISCHARGE: 12/31/2016 FINAL DIAGNOSES: 1. Syncope vasovagal due to orthostatic hypotension and patient being on Lasix. 2. Persistent atrial fibrillation with a paced rhythm. 3. Chronic congestive heart failure from diastolic dysfunction, ejection fraction 50% to 55%. 4. Gastroesophageal reflux disease. 5. Hyperlipidemia. 6. Essential hypertension. 7. Jenkins's esophagus. 8. Abdominal aortic aneurysm. 9. Chronic kidney disease, stage III, from hypertensive nephrosclerosis. 10. Benign prostatic hypertrophy. 11. Chronic L2 vertebral fracture. 12. Vitamin D deficiency. 13. Coumadin monitoring. CONSULTATION: 1. Dr. Alison Murillo from Cardiology. 2. Dr. Swanson from Neurology. 3. Dr. Davila from Pulmonary. 4. Dr. Corea from Vascular for infrarenal artery aneurysm 4.5 cm. HOSPITAL COURSE: This patient presented with episode of passing out, was found to be orthostatic. Patient has known chronic kidney disease. Creatinine was 2.18. Neurological work-up including carotid Doppler and 2-D echo, CT scan of the brain were all unremarkable. Patient has a pacemaker in place. By the time of discharge the patient's orthostatics greatly improved. Lasix was discontinued. A 2-D echo showed preserved LV function. Florinef was added. Care was discussed in detail with the patient at the bedside. Questions were answered. Also seen by Dr. Corea from vascular who follows the patient as an outpatient. DISCHARGE MEDICATIONS: 1. Prozac 20 mg with supper. 2. Folic acid 1 mg p.o. with supper. 3. Methotrexate 5 mg p.o. on Fridays. 4. Protonix 40 mg p.o. b.i.d. 5. Flomax 0.4 mg at supper. 6. Carafate 12.5 mcg p.o. on Sunday and Sunday. 7. Aricept 5 mg q.h.s. 8. Magnesium oxide 1 mg p.o. daily. 9. Aspirin 81 mg p.o. daily. 10. Lipitor 40 mg p.o. daily. 11. Lopressor 12.5 p.o. b.i.d. 12. Desenex vitamin D3, 400 units p.o. daily. 13. Marinol 2.5 p.o. q.i.d. 14. [place] 7.5 t.i.d. p.r.n. 15. Florinef 0.05 mg p.o. daily. 16. Coumadin dose to be held today. New dose of 1 mg p.o. q.h.s. Follow up with Dr. Lewis in 2 days and follow with Dr. Tim Corea in the office. Discharge planning more than 35 minutes. On examination, LUNGS: Decreased breath sounds. CARDIOVASCULAR: Heart rate sounds irregular. ABDOMEN: Soft, nontender.
[2017-01-02] MEDS ORDERED: WARFARIN 1.5 MG TAB PO SCH (14:44)
[2017-01-03] MEDS ORDERED: CALCITRIOL 0.25 MCG CAP PO SCH (09:00)
[2017-01-05] MEDS ORDERED: METHOTREXATE SODIUM 2.5 MG TAB PO SCH (09:00)
== END 2016-12-31 13:43 | disposition home or self-care (01) | DRG 312 ==
LOC: EC 10:58 → 6SEL 12:56
PROVIDERS: ADMIT Hospitalist; ATTEND Hospitalist
PROC: 3E0234Z Introduction of Serum, Toxoid and Vaccine into Muscle, Percutaneous Approach (ICD-10-PCS; principal; 2016-12-29)
PROC: 4B02XTZ Measurement of Cardiac Defibrillator, External Approach (ICD-10-PCS; 2016-12-30)
DX: I95.1 Orthostatic hypotension (principal); N18.4 Chronic kidney disease, stage 4 (severe); I42.9 Cardiomyopathy, unspecified; I13.0 Hypertensive heart and chronic kidney disease with heart failure and stage 1 through stage 4 chronic kidney disease, or unspecified chronic kidney disease; I48.1 Persistent atrial fibrillation; I50.32 Chronic diastolic (congestive) heart failure; K22.70 Barrett's esophagus without dysplasia; Z23 Encounter for immunization; N40.0 Benign prostatic hyperplasia without lower urinary tract symptoms; E55.9 Vitamin D deficiency, unspecified; I71.4 Abdominal aortic aneurysm, without rupture; K21.9 Gastro-esophageal reflux disease without esophagitis; E78.5 Hyperlipidemia, unspecified; H91.90 Unspecified hearing loss, unspecified ear; I25.10 Atherosclerotic heart disease of native coronary artery without angina pectoris; I49.3 Ventricular premature depolarization; L40.9 Psoriasis, unspecified; G89.4 Chronic pain syndrome; M54.5 Low back pain; S00.03XA Contusion of scalp, initial encounter; F32.9 Major depressive disorder, single episode, unspecified; F41.9 Anxiety disorder, unspecified; R29.6 Repeated falls; Z95.810 Presence of automatic (implantable) cardiac defibrillator; Z95.2 Presence of prosthetic heart valve; Z96.612 Presence of left artificial shoulder joint; Z90.49 Acquired absence of other specified parts of digestive tract; Z87.891 Personal history of nicotine dependence; Z87.81 Personal history of (healed) traumatic fracture; Z86.73 Personal history of transient ischemic attack (TIA), and cerebral infarction without residual deficits; Z91.81 History of falling; Z95.0 Presence of cardiac pacemaker; Z98.42 Cataract extraction status, left eye; Z98.41 Cataract extraction status, right eye; Z96.1 Presence of intraocular lens; Z79.82 Long term (current) use of aspirin; Z79.01 Long term (current) use of anticoagulants; Z79.899 Other long term (current) drug therapy; Z88.1 Allergy status to other antibiotic agents; Z88.5 Allergy status to narcotic agent; W19.XXXA Unspecified fall, initial encounter; Y92.481 Parking lot as the place of occurrence of the external cause; Z82.49 Family history of ischemic heart disease and other diseases of the circulatory system
CPT/HCPCS: 36415; 70450; 71020; 72082; 72131; 74176; 80048; 80053; 81003; 82550; 82553; 84484; 85025; 85610; 85730; 90715; 93005; 93306; 93880; 94760; 96361; 96365; 96367; 99285

== ENCOUNTER 2017-01-15 11:19 | Inpatient (IN) | payer MEDICARE, BC ==
[2017-01-09 12:45] VITALS: BMI 29.1
[~2017-01-15 11:19] MED LIST: DEXAMETHASONE SOD PHOSPHATE 10 MG/ML 1 ML VIAL IV ONE; LIDOCAINE 1% 20 ML VIAL (10MG/ML) FOR IV START INTRADERMA PRN; ONDANSETRON 4 MG/2 ML VIAL IVP ONE; ceFAZolin 2 GM in SODIUM CHLORIDE 0.9% 100 ML IVPB ONE
[2017-01-15] MEDS: LACTATED RINGERS 1,000 ML IV SCH ×3 (11:54→16:45)
[2017-01-15 12:09] LABS: INR 1.3 (<1.1)
[2017-01-15] MEDS ORDERED: PROPOFOL 10 MG/ML 20 ML VIAL IV ONE (13:04)
[2017-01-15] MEDS ORDERED: NEOSTIGMINE 1 MG/ML 10 ML VIAL ONE (13:04)
[2017-01-15] MEDS ORDERED: ROCURONIUM BROMIDE 10 MG/ML 10 ML VIAL IV ONE (13:04)
[2017-01-15] MEDS ORDERED: GLYCOPYRROLATE 0.2 MG/ML 2 ML VIAL ONE (13:04)
[2017-01-15] MEDS ORDERED: SUCCINYLCHOLINE CHLORIDE 100 MG/5 ML SYR IV ONE (13:04)
[2017-01-15] MEDS ORDERED: KETOROLAC 30 MG/ML 1 ML VIAL ONE (13:04)
[2017-01-15] MEDS ORDERED: PHENYLEPHRINE-0.9% NACL SYG 1 MG/10 ML SYRINGE ONE (13:04)
[2017-01-15] MEDS ORDERED: LIDOCAINE 1% INJ 10MG/ML (20 ML MDV) ONE (13:04)
[2017-01-15] MEDS ORDERED: LABETALOL 5 MG/ML VIAL MDV ONE (13:04)
[2017-01-15] MEDS ORDERED: ePHEDrine 50 MG/ML 1 ML AMP ONE (13:04)
[2017-01-15] MEDS ORDERED: MIDAZOLAM 2 MG/2 ML VIAL ONE (13:04)
[2017-01-15] MEDS ORDERED: BUPIVACAINE (PF) 0.5% 30 ML VIAL SQ ONE ×2 (13:28)
[2017-01-15] MEDS ORDERED: IOHEXOL 180 MG/ML 1 ML ML MISCELLANE ONE ×2 (13:28)
[2017-01-15] MEDS ORDERED: LACTATED RINGERS 1,000 ML IV ONE (13:58)
[2017-01-15] MEDS ORDERED: HYDROcodone/APAP 5-325MG 1 EACH TAB PO PRN (14:03)
[2017-01-15] MEDS ORDERED: HYDROmorphone 1 MG/ML 1 ML SYRINGE IVP PRN (14:03)
[2017-01-15] MEDS ORDERED: MAGNESIUM HYDROXIDE 2,400 MG/10 ML CUP PO PRN (14:03)
[2017-01-15] MEDS ORDERED: BENZOCAINE/MENTHOL LOZENG 1 EACH LOZENGE MUCOUS MEM PRN (14:03)
[2017-01-15] MEDS ORDERED: CHLORPHEN-HYDROcod 8-10mg/5ml 5 ML ORAL.SYRG PO PRN (14:05)
[2017-01-15] MEDS ORDERED: HYDROcodone/APAP 7.5-325MG 1 EACH TAB PO PRN (14:05)
--- NOTE | 2017-01-15 14:09 | P.OP ---
Date of Procedure: 01/15/17 Preoperative Diagnosis: L2 compression fracture, osteoporotic due to a low energy fall Low back pain Postoperative Diagnosis: Same Procedure(s) Performed: Implants: Anesthesia: GETA Pathology: other (L2 vertebral body biopsy sent to pathology) Disposition: PACU Indications for Procedure: Operative Findings: Description of Procedure: BRIEF OPERATIVE NOTE Preoperative Diagnosis: Vertebral compression fracture at L2, osteoporotic due to low energy fall Postoperative Diagnosis: Same Procedure: Kyphoplasty at L2 Vertebral body biopsy of L2 Use of biplanar fluoroscopic guidance Surgeon: Dr. Pelletier Security Associate: Gurpreet Roland is present throughout the entire the case persistence during positioning, dissection, exposure, visualization, and all crucial elements of the case as well as closure. Anesthesia: General anesthesia per Dr. Sanabria Estimated blood loss: Less than 10 mL Specimen: Vertebral body biopsy sent to pathology in formalin Complications: None apparent Components implanted: Bone cement approximately 9 mL Disposition: To recovery room in good stable condition. OPERATIVE INDICATIONS The patient has been having issues in their back ever since sustaining an injury. His evidence of osteoporosis and had a low energy injury when he had a fall. He has been having significant low back pain since that time and was found to have a L2 compression fracture which has progressed slightly despite conservative treatment. The patient has been through conservative treatment. They attempted conservative care with bracing however they're not having any benefit despite brace use. They continue to have significant pain and debility due to their fracture. We discussed various treatment options including surgery , and the patient wishes to proceed with surgery We discussed the risk, patient' s alternatives and benefits of surgery including but not limited to, risk of bleeding risk of infection, risk of need for further surgery, risk of decreased , loss of motion, loss of function, cement extravasation, nerve damage, paralysis, heart attack, blindness and . OPERATIVE SUMMARY After discussing all the risks, patient alternatives and benefits at length, the patient elected to proceed with surgical intervention, signed informed consent, and presented for their procedure. The patient was seen and examined in the preoperative holding area and the surgical site was marked. The patient was given antibiotics and brought to the operating room. The patient was sedated and intubated by anesthesia in standard fashion. The patient was positioned on to the operating room table in a prone position on the appropriate well-padded and well molded bilateral chest rolls. We were careful to pad any bony prominences and pressure points. We were careful to maintain the patient's cervical spine and good neutral alignment and position throughout. We used 2 C-arm machines to establish biplanar fluoroscopic guidance in AP and lateral positions. We were able to localize the fractures appropriately. The patient was prepped and draped in a normal standard fashion. An appropriate timeout and keystone protocol performed. We were able to proceed with the surgery. The local wound area was infiltrated with local anesthetic. An incision was made over the lateral aspect of the pedicle over the appropriate levels with a small 2 mm stab incision on the right over L2. Intraoperative fluoroscopy was taken which showed a marker at the appropriate level of L2. With the appropriate level positively confirmed, I was able to position a sharp trocar over the lateral aspect of the pedicle. As able to advance the trocar into the pedicle and into the posterior aspect of vertebral body being careful to avoid penetration cephalad caudad or medially. The trocar was placed appropriately into the posterior aspect of vertebral body at the appropriate levels. This was confirmed with C-arm guidance. With the trocar intact I was then able to take a bone biopsy with a biopsy punch or a bony drill. The biopsy specimen was passed off to be sent to pathology in formalin. I was then able to place the kyphoplasty balloon within the vertebral body. The position was checked on C-arm. I was able to inflate the balloon under low pressure and visualization with C-arm. The balloon was well enclosed within the vertebral body. The cement was prepared. With the cement at appropriate working condition the balloons were deflated and removed. I was able to place bony cement with trocar with the cement delivery device under low pressure. It had good fill within the vertebral body. There is no evidence of any extravasation of the cement posteriorly toward the canal. The cement was well contained at the appropriate levels. The cement was allowed to cure appropriately. We are able to use proximally 9 mL of bone cement within the vertebral body The trochars removed and final images were taken on C-arm. This showed the cement at the appropriate levels of L2 vertebral body. We were able to proceed with closure. The wound was cleaned and dried and dressed with the appropriate dressing. The drapes were broken down. The patient was gently rolled back onto their hospital bed being careful to maintain their cervical spine and good neutral alignment and position. They were woken up by anesthesia, extubated, and brought to the recovery room in good stable condition. The patient will be admitted to the hospital for observation and for appropriate postoperative care, medical management and monitoring. We will continue to follow them closely about the postoperative course.
--- NOTE | 2017-01-15 14:59 | XR ---
Limited lumbar spine History: kyphoplasty 4 intraoperative images document the procedure
[2017-01-15] MEDS ORDERED: ONDANSETRON 4 MG/2 ML VIAL IVP ONE (15:15)
[2017-01-15] MEDS: HYDROmorphone 1 MG/ML 1 ML SYRINGE IVP PRN ×2 (15:20→15:31)
[2017-01-15] MEDS: MIDAZOLAM 2 MG/2 ML VIAL IV PRN ×3 (15:37→15:43)
[2017-01-15] MEDS: SODIUM CHLORIDE 0.9% 1,000 ML IV SCH (16:38)
[2017-01-15] MEDS: FOLIC ACID 1 MG TAB PO SCH (16:38)
[2017-01-15] MEDS: FLUoxetine HCL 20 MG CAP PO SCH (16:38)
[2017-01-15] MEDS: PANTOPRAZOLE 40 MG TABLET PO SCH (16:39)
[2017-01-15] MEDS: TAMSULOSIN 0.4 MG CAP.ER.24H PO SCH (16:39)
[2017-01-15] MEDS: DRONABINOL 2.5 MG CAP PO SCH ×2 (17:26→21:40)
[2017-01-15] MEDS: ceFAZolin 2 GM in SODIUM CHLORIDE 0.9% 100 ML IVPB SCH (19:57)
[2017-01-15] MEDS ORDERED: WARFARIN 1 MG TAB PO SCH (21:00)
[2017-01-15] MEDS: METOPROLOL TARTRATE 12.5 MG TAB PO SCH (21:40)
[2017-01-15] MEDS: DONEPEZIL 5 MG TAB PO SCH (21:40)
[2017-01-16] MEDS: SODIUM CHLORIDE 0.9% 1,000 ML IV SCH ×3 (04:52→21:02)
[2017-01-16] MEDS: ceFAZolin 2 GM in SODIUM CHLORIDE 0.9% 100 ML IVPB SCH (04:54)
[2017-01-16] MEDS: HYDROcodone/APAP 5-325MG 1 EACH TAB PO PRN ×4 (05:35→21:05)
[2017-01-16] MEDS: LACTATED RINGERS 1,000 ML IV SCH (08:43)
[2017-01-16] MEDS: PANTOPRAZOLE 40 MG TABLET PO SCH ×2 (08:47→17:47)
[2017-01-16] MEDS: ASPIRIN 81 MG CHEW PO SCH (08:48)
[2017-01-16] MEDS: ATORVASTATIN 40 MG TAB PO SCH (08:48)
[2017-01-16] MEDS: DRONABINOL 2.5 MG CAP PO SCH ×4 (08:49→21:02)
[2017-01-16] MEDS: FLUDROCORTISONE 0.1 MG TAB PO SCH (08:49)
[2017-01-16] MEDS: MAGNESIUM OXIDE 400 MG TAB PO SCH (08:50)
[2017-01-16] MEDS: METOPROLOL TARTRATE 12.5 MG TAB PO SCH ×2 (08:50→21:02)
[2017-01-16] MEDS: FUROSEMIDE 20 MG TAB PO SCH (08:50)
[2017-01-16] MEDS: SENNOSIDES-DOCUSATE SODIUM 1 EACH TAB PO SCH (08:53)
[2017-01-16] MEDS ORDERED: ENOXAPARIN 100 MG/ML SYRINGE SQ SCH (09:00)
--- NOTE | 2017-01-16 09:13 | P.PN ---
Progress Note - Text Orthopedic Spine Patient is a pleasant 76-year-old male who is seen at the bedside following L2 kyphoplasty with biopsy performed yesterday. Patient states they are doing pretty well postsurgically. Currently does not complain of nausea, vomiting, fever, or chills. Patient states pain has been adequately controlled. He is moving significantly better than he was prior to surgical intervention. Patient is voiding freely without difficulty. He did experience considerable sneezing throughout the night last night. Most likely due to this, he has had significant drainage from his kyphoplasty site. Does have a history of being on blood thinners as well and was on a Lovenox bridge prior to surgical intervention. Dressing has been reinforced multiple times. There is significant saturation of the bed and some on the floor. He is also having some difficulty with swallowing postsurgically as his throat feels sore. He states he was not able to eat much yesterday. He was able to eat some eggs this morning. He is drinking without difficulty. He is been able to ambulate the hallways but does have some dizziness while doing so. He has not passed out. He has not yet been seen by medicine. Physical Exam: Status post surgical day number 1 Patient is awake, alert, and oriented 3 Vital signs stable Good chest excursion with deep inspiration and expiration Abdomen soft nontender Dorsiflexion, plantarflexion, and extensor hallucis longus positive sustained bilaterally No signs or symptoms of DVT; no calf pain Dressing is removed during physical examination; kyphoplasty state reinforced with Steri-Strips with no nonadherent dressing and Tegaderm applied Dressing is clean, dry, and intact; no erythema, purulence, or signs of infection Assessment: L2 kyphoplasty with biopsy Dizziness Hx of Cardiac surgery currently on anti-coagulation therapy Plan: 1. Patient has been experiencing some significant drainage from his kyphoplasty site. He is still having some active drainage from the incision site. Dressing has been changed and reinforced with Steri-Strips, nonadherent dressing, and large Tegaderms. We will plan to continue to watch his incision site throughout the day. We will also plan to obtain a CBC for further evaluation. 2. Ambulate as tolerated; work with Physical Therapy 3. Continue Pain control with oral medications 4. Medical management can continue to manage patient for patient's other medical issues including his anticoagulation therapy and dizziness 5. We will continue to follow the patient closely; if the patient is able to improve throughout the day and the drainage from his incision site is able to stop, we may plan for discharge home tomorrow, 01/17/2017 6. Patient can follow-up with Gurpreet Snell PA-C or Dr. Monster Pelletier at [facility] in 2-3 weeks following discharge
[2017-01-16 09:35] LABS: Anisocytosis Slight; Basophils % (A) 0 %; CHCM 29.3; Eosinophils # (A) 0.1 k/uL (0-0.7); Eosinophils % (A) 1 %; HDW 2.99; Hypochromasia Marked; Luc # (Auto) 0.22; Luc % (Auto) 3; Lymphocytes # (A) 0.9 k/uL (1.0-4.8); Lymphocytes % (A) 11 %; MCH 25.1 pg (25.0-35.0); MCHC 30.6 g/dL (31.0-37.0); MCV 82.1 fL (80.0-100.0); Monocytes # (A) 0.3 k/uL (0-1.0); Monocytes % (A) 4 %; Neutrophils # (A) 6.7 k/uL (1.3-7.7); Neutrophils % (A) 82 %; RBC 4.14 m/uL (4.30-5.90); RDW 17.7 % (11.5-15.5); WBC 8.2 k/uL (3.8-10.6); WBC (Perox) 9.09
[2017-01-16 09:39] LABS: HGB 10.4 gm/dL (13.0-17.5)
[2017-01-16 10:20] LABS: INR 1.3 (<1.1); Prothrombin Time 12.7 sec (9.0-12.0)
[2017-01-16] MEDS ORDERED: PHYTONADIONE ORAL 5 MG/5 ML ORAL.SYRG PO STA (11:52)
[2017-01-16] MEDS: CHOLECALCIFEROL 400 UNIT TAB PO SCH (13:49)
[2017-01-16 17:14] LABS: Anisocytosis Slight; Basophils % (A) 0 %; CH 23.9; CHCM 29.7; Eosinophils # (A) 0.2 k/uL (0-0.7); Eosinophils % (A) 2 %; HCT 30.6 % (39.0-53.0); HDW 3.02; HGB 9.4 gm/dL (13.0-17.5); Hypochromasia Marked; Luc # (Auto) 0.27; Luc % (Auto) 4; Lymphocytes % (A) 13 %; MCH 24.9 pg (25.0-35.0); MCHC 30.8 g/dL (31.0-37.0); MCV 80.6 fL (80.0-100.0); Mean Platelet Volume 7.5; Microcytosis Slight; Monocytes # (A) 0.4 k/uL (0-1.0); Monocytes % (A) 5 %; Neutrophils # (A) 5.9 k/uL (1.3-7.7); Neutrophils % (A) 76 %; RBC 3.79 m/uL (4.30-5.90); RDW 17.9 % (11.5-15.5); WBC 7.7 k/uL (3.8-10.6); WBC (Perox) 8.19
[2017-01-16 17:15] LABS: INR 1.3 (<1.1); Prothrombin Time 13.2 sec (9.0-12.0)
[2017-01-16] MEDS: FLUoxetine HCL 20 MG CAP PO SCH (17:47)
[2017-01-16] MEDS: TAMSULOSIN 0.4 MG CAP.ER.24H PO SCH (17:47)
[2017-01-16] MEDS: FOLIC ACID 1 MG TAB PO SCH (17:47)
[2017-01-16] MEDS ORDERED: LORATADINE 10 MG TAB PO PRN (19:10)
[2017-01-16] MEDS: DONEPEZIL 5 MG TAB PO SCH (21:02)
[2017-01-17] MEDS: HYDROcodone/APAP 5-325MG 1 EACH TAB PO PRN ×3 (02:33→12:31)
[2017-01-17] MEDS: LACTATED RINGERS 1,000 ML IV SCH (06:07)
[2017-01-17 07:54] VITALS: PULSE 81; RESP 14
[2017-01-17] MEDS: PANTOPRAZOLE 40 MG TABLET PO SCH (08:43)
[2017-01-17] MEDS: FLUDROCORTISONE 0.1 MG TAB PO SCH (08:44)
[2017-01-17] MEDS: FUROSEMIDE 20 MG TAB PO SCH (08:44)
[2017-01-17] MEDS: ATORVASTATIN 40 MG TAB PO SCH (08:44)
[2017-01-17] MEDS: METOPROLOL TARTRATE 12.5 MG TAB PO SCH (08:45)
[2017-01-17] MEDS: MAGNESIUM OXIDE 400 MG TAB PO SCH (08:45)
[2017-01-17] MEDS: SENNOSIDES-DOCUSATE SODIUM 1 EACH TAB PO SCH (08:46)
[2017-01-17] MEDS: ASPIRIN 81 MG CHEW PO SCH (08:53)
[2017-01-17] MEDS: DRONABINOL 2.5 MG CAP PO SCH ×2 (08:53→12:32)
[2017-01-17 08:56] VITALS: BP 148/67; TEMP 97.9
--- NOTE | 2017-01-17 10:16 | P.DS ---
Providers Date of admission: 01/15/17 11:19 Expected date of discharge: 01/17/17 Attending physician: Allison Pelletier Consults: 01/15/17 17:02 Consult Physician Routine Consulting Provider: Deo Barlow Consult Reason/Comments: Medical management Do you want consulting provider notified?: Yes 01/16/17 16:34 Consult Physician Routine Consulting Provider: Jorge Lewis Consult Reason/Comments: copd, chf Do you want consulting provider notified?: Yes Primary care physician: Stated None - Discharge Diagnosis(es) (1) S/P kyphoplasty Current Visit: Yes Status: Acute (2) Low back pain Current Visit: No Status: Acute Hospital Course: This is a pleasant 76-year-old male who presented with an L2 vertebral body compression fracture and low back pain who failed outpatient conservative therapy. He was admitted for an L2 kyphoplasty with biopsy. Postoperatively, patient has had significant improvement in regards to his back pain. He was on Coumadin prior to surgical intervention and was placed on a Lovenox bridge prior to surgery. Postsurgically he has had significant drainage from this small incision site from the kyphoplasty. After applying Dermabond with Prineo tape and pressure yesterday, his incision site has stopped draining. There is no active drainage from the incision site. Overall, he feels he has been improving postsurgically. He continues to take [place] 5 mg/325 mg 2 tabs every 4 hours for pain control. He's been eating avoiding significant difficulty. He 's been able to ambulate the hallways without significant difficulty. He is ambulating better currently than he was prior to surgical intervention. He continues to be followed by Dr. Barlow medicine. We are currently waiting for lab results for a CBC and PT/INR lab draws. If the patient continues to improve throughout the day, does not have evidence of significant abnormal findings on labs, and is cleared by Dr. Barlow in medicine, patient will be cleared for discharge home. Condition on day of discharge stable. Patient will be discharged home. Patient was cleared preoperatively for surgery. Patient currently denies any nausea, vomiting, fever, or chills. Patient is eating and voiding freely without difficulty. Patient may shower Tegaderm dressing intact. Patient may remove Tegaderm dressing in 3 days and shower without a dressing at that time. Patient should keep Dermabond and Prineo tape intact and allow them to fall off naturally. Patient should refrain from driving until at least after their first follow-up appointment in the office. Patient should avoid excessive bending, lifting, and twisting; no lifting greater than 10 pounds. Patient may resume home medications per Dr. Barlow medicine's recommendations including anticoagulation therapy. We will plan for Dr. Barlow to finalize the med rec prior to discharge. Patient will be given a prescription for [place] 10 mg/25 mg 1 tab every 6 hours as needed for pain dispense #90 (Ninety). Physical Exam on day of discharge: Status post surgical day number 2 Patient is awake, alert, and oriented 3 Vital signs stable Good chest excursion with deep inspiration and expiration Abdomen soft nontender Dorsiflexion, plantarflexion, and extensor hallucis longus positive sustained bilaterally No signs or symptoms of DVT; no calf pain Dressing is removed during physical examination; evidence of Prineo Tape and dried blood over the incision site with no active drainage No increased drainage with palpation around the surgical site No significant pain with palpation around the surgical site Examination lumbar spine shows no evidence of significant erythema, bruising, laceration, or obvious sign of infection Dressing is reapplied with nonstick Telfa and Tegaderm Dressing is clean, dry, and intact; no erythema, purulence, or signs of infection from the incision site Procedures: L2 kyphoplasty with biopsy Patient Condition at Discharge: Stable Plan - Discharge Summary New Discharge Prescriptions: New HYDROcodone/APAP 10-325MG [[place] 10] 1 each PO Q6H PRN #90 tab PRN Reason: Pain No Action Folic Acid 1 mg PO W/SUPPER Methotrexate Sodium [Methotrexate] 5 mg PO FR Pantoprazole Sodium [Protonix] 40 mg PO BID FLUoxetine HCL [PROzac] 20 mg PO W/SUPPER Tamsulosin [Flomax] 0.4 mg PO W/SUPPER Magnesium Oxide 400 mg PO QAM Calcitriol 0.5 mcg PO WEFR Donepezil [Aricept] 5 mg PO HS Metoprolol Tartrate [Lopressor] 12.5 mg PO BID Aspirin EC [Ecotrin Low Dose] 81 mg PO QAM Atorvastatin Calcium [Lipitor] 40 mg PO QAM Cholecalciferol [Vitamin D3] 400 unit PO DAILY CHLORPHEN-HYDROcod 8-10mg/5ml [Tussionex] 5 ml PO Q12HR PRN PRN Reason: Cough Dronabinol [Marinol] 2.5 mg PO QID HYDROcodone/APAP 7.5-325MG [[place] 7.5-325] 1 tab PO BID PRN PRN Reason: Pain Warfarin [Coumadin] 1 mg PO HS #0 Furosemide [Lasix] 20 mg PO DAILY Fludrocortisone [Florinef] 0.05 mg PO DAILY Enoxaparin [Lovenox] 100 mg SQ DAILY Discharge Medication List FLUoxetine HCL [PROzac] 20 mg PO W/SUPPER 11/24/13 [History] Folic Acid 1 mg PO W/SUPPER 11/24/13 [History] Methotrexate Sodium [Methotrexate] 5 mg PO FR 11/24/13 [History] Pantoprazole Sodium [Protonix] 40 mg PO BID 11/24/13 [History] Tamsulosin [Flomax] 0.4 mg PO W/SUPPER 12/01/13 [History] Calcitriol 0.5 mcg PO WEFR 05/29/16 [History] Donepezil [Aricept] 5 mg PO HS 05/29/16 [History] Magnesium Oxide 400 mg PO QAM 05/29/16 [History] Aspirin EC [Ecotrin Low Dose] 81 mg PO QAM 09/09/16 [History] Atorvastatin Calcium [Lipitor] 40 mg PO QAM 09/09/16 [History] Metoprolol Tartrate [Lopressor] 12.5 mg PO BID 09/09/16 [History] CHLORPHEN-HYDROcod 8-10mg/5ml [Tussionex] 5 ml PO Q12HR PRN 12/29/16 [History] Cholecalciferol [Vitamin D3] 400 unit PO DAILY 12/29/16 [History] Dronabinol [Marinol] 2.5 mg PO QID 12/29/16 [History] HYDROcodone/APAP 7.5-325MG [[place] 7.5-325] 1 tab PO BID PRN 12/29/16 [History] Warfarin [Coumadin] 1 mg PO HS #0 12/31/16 [Rx] Fludrocortisone [Florinef] 0.05 mg PO DAILY 01/09/17 [History] Furosemide [Lasix] 20 mg PO DAILY 01/09/17 [History] Enoxaparin [Lovenox] 100 mg SQ DAILY 01/15/17 [History] HYDROcodone/APAP 10-325MG [[place] 10] 1 each PO Q6H PRN #90 tab 01/17/17 [Rx] Follow up Appointment(s)/Referral(s): Gurpreet Snell, DANTE [PHYSICIAN [employer]] - 2 Weeks (Patient may follow-up with Gurpreet Snell PA-C or Dr. Monster Pelletier at [facility] in 2-3 weeks following discharge. ) Activity/Diet/Wound Care/Special Instructions: 1. Patient may shower Tegaderm dressing intact. 2. Patient may remove Tegaderm dressing in 3 days and shower without a dressing at that time. 3. Patient should keep Dermabond and Prineo Tape intact and allow them to fall off naturally. 4. Patient should refrain from driving until at least after their first follow- up appointment in the office. 5. Patient should avoid excessive bending, twisting, and lifting; no lifting greater than 10 pounds 6. Do not soak in tub Discharge Disposition: HOME SELF-CARE
[2017-01-17 11:07] LABS: INR 1.2 (<1.1); Prothrombin Time 11.8 sec (9.0-12.0)
[2017-01-17 11:08] LABS: Anisocytosis Slight; Basophils % (A) 0 %; CH 24.4; CHCM 29.8; Eosinophils # (A) 0.3 k/uL (0-0.7); Eosinophils % (A) 3 %; HCT 31.1 % (39.0-53.0); HGB 9.2 gm/dL (13.0-17.5); Hypochromasia Marked; Luc # (Auto) 0.22; Luc % (Auto) 2; Lymphocytes # (A) 0.9 k/uL (1.0-4.8); Lymphocytes % (A) 9 %; MCH 24.2 pg (25.0-35.0); MCHC 29.5 g/dL (31.0-37.0); Mean Platelet Volume 8.9; Monocytes # (A) 0.5 k/uL (0-1.0); Monocytes % (A) 5 %; Neutrophils # (A) 7.6 k/uL (1.3-7.7); Neutrophils % (A) 81 %; RBC 3.79 m/uL (4.30-5.90); RDW 18.1 % (11.5-15.5); WBC 9.4 k/uL (3.8-10.6)
--- NOTE | 2017-01-17 11:26 | FL ---
FLUOROSCOPY 68 seconds of fluoroscopy time were utilized during kyphoplasty at L2. 4 images document the procedur e.
[2017-01-17] MEDS ORDERED: CALCITRIOL 0.25 MCG CAP PO SCH (12:00)
[2017-01-17] MEDS: CHOLECALCIFEROL 400 UNIT TAB PO SCH (12:30)
--- NOTE | 2017-01-18 19:13 | CONS ---
REASON FOR CONSULTATION: Advice regarding atrial fibrillation and other multiple medical issues, requested by Orthopedic Surgery. HISTORY OF PRESENT ILLNESS: This 76-year-old gentleman with a past medical history of atrial fibrillation, CAD, CHF, CVA, TIA, history of hearing disorder , hyperlipidemia, history of memory impairment, history of cardiomyopathy, history of AICD, appendectomy, being followed by Dr. Lewis in the outpatient setting, underwent kyphoplasty of the L2 vertebral body biopsy with use of biplanar fluoroscopic guidance, and L2 biopsy has been sent by Dr. Pelletier. Possibly patient had some bleeding. INR is 1.3. There is no history of any fever , rigor or chills. No history of headache, loss of consciousness, seizures, chest pain, palpitations. PAST MEDICAL HISTORY: 1. History of atrial fibrillation. 2. History of CAD. 3. CHF. 4. CVA, TIA. 5. GERD. 6. Hearing defects. 7. Memory impairment. 8. History of cardiomyopathy. 9. History of TIA. 10. Appendectomy. HOME MEDICATIONS: 1. Coumadin 1 mg p.o. at bedtime. 2. Flomax 0.4 mg with supper. 3. Protonix 40 mg p.o. b.i.d. 4. Lopressor 12.5 mg b.i.d. 5. Methotrexate 5 mg p.o. on Fridays. 6. Magnesium oxide 400 mg each morning. 7. [place] 7.5 b.i.d. p.r.n. 8. Lasix 20 mg p.o. daily. 9. Folic acid 1 mg with supper. 10. Florinef 0.05 p.o. daily. 11. Prozac 20 mg with supper. 12. Lovenox 100 mg subcutaneously daily. 13. Marinol 2.5 mg p.o. q.i.d. 14. Aricept 5 mg p.o. at bedtime. 15. Vitamin D3 400 units daily. 16. Calcitriol 0.5 mcg Wednesdays and Fridays. 17. Tussionex 5 mL p.o. b.i.d. p.r.n. 18. Lipitor 40 mg p.o. each morning. 19. Ecotrin 81 mg each morning. ALLERGIES: 1. FENTANYL. 2. LEVAQUIN. 3. METHADONE. 4. MORPHINE. 5. OXYCODONE. FAMILY HISTORY: History of cancer, myocardial infarction in the family. SOCIAL HISTORY: Previous history of smoking. No current smoking or alcohol intake. REVIEW OF SYSTEMS: ENT: No diminished vision. No diminished hearing. CARDIOVASCULAR SYSTEM: No angina, palpitations. RESPIRATORY SYSTEM: No cough, hemoptysis. GI: No nausea, vomiting, diarrhea. : No dysuria, retention. NERVOUS SYSTEM: No numbness, weakness. ALLERGY/IMMUNOLOGY: No asthma, hayfever. MUSCULOSKELETAL: As mentioned earlier. HEMATOLOGY/ONCOLOGY: No history of anemia. ENDOCRINE: No history of diabetes, hypothyroidism. CONSTITUTIONAL: As mentioned earlier. DERMATOLOGY: Negative. RHEUMATOLOGY: Negative. PSYCHIATRY: As mentioned earlier. PHYSICAL EXAMINATION: Patient is alert and oriented x3. Pulse 70, blood pressure 108/50, respiratory rate 16, temperature 97 degrees, pulse ox 96% on room air. HEENT: Conjunctivae normal. NECK: No jugular venous distention. CARDIOVASCULAR: S1, S2 muffled. RESPIRATORY: Breath sounds diminished at the bases. No rhonchi. No crackles. ABDOMEN: Soft, non-tender. LEGS: No edema. No swelling. NERVOUS SYSTEM: No focal deficit. EXAMINATION OF THE BACK: Status post surgery. LABS: WBC 8.2, hemoglobin 10.4. ASSESSMENT: 1. Status post kyphoplasty, L2, vertebral body biopsy, L2, for L2 compression fracture, osteoporotic due to ( ) and low back pain. 2. Anemia, normocytic; anemia of chronic disease. 3. Coumadin monitoring. 4. Atrial fibrillation. 5. History of coronary artery disease. 6. History of congestive heart failure. 7. Cerebrovascular accident, transient ischemic attack. 8. Gastroesophageal reflux disease. 9. Hard of hearing. 10. Hyperlipidemia. 11. Memory difficulties. 12. History of cardiomyopathy. 13. History of transient ischemic attacks. 14. History of abdominal aortic aneurysm measuring 5.2 cm. 15. History of Jenkins's esophagus. 16. 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 17. History of psoriasis. 18. History of vertebral fracture. 19. History of AICD. 20. Appendectomy. 21. History of cardiac valve replacement; mitral valve replacement. 22. Congestive heart failure with chronic diastolic dysfunction; ejection fraction 50% to 55%. RECOMMENDATIONS AND DISCUSSION: I recommend to continue current medications, continue with the monitoring, symptomatic treatment. Otherwise, at this time I recommend vitamin K 2.5 mg. Resume the rest of the medications. Closely follow. Further recommendations to follow. MTDD
[2017-01-19] MEDS ORDERED: METHOTREXATE SODIUM 2.5 MG TAB PO SCH (12:00)
--- NOTE | 2017-01-20 10:23 | PN ---
DATE OF SERVICE: 01/17/2017 This 76-year-old gentleman admitted with L2 compression fracture underwent kyphoplasty as well as vertebral body biopsy. The patient had some bleeding subsequently but the patient is taking Coumadin at home for atrial fibrillation , but after the vitamin K the bleeding improved and currently the patient is closely monitored. No chest pain, no palpitations, no fever. On exam, alert and oriented x3. Pulse is 81, blood pressure 140/67, respirations 14, temperature 97.9, pulse ox 97% on room air. HEENT: Conjunctivae normal. NECK: No jugular venous distention. CARDIOVASCULAR: S1, S2. RESPIRATORY: Breath sounds diminished in the bases. No rhonchi, no crackles. ABDOMEN: Soft, nontender. LEGS: No edema. NERVOUS SYSTEM: No focal deficits. BACK: Status post back surgery. LABS: WBC 1.8, hemoglobin 9.2. ASSESSMENT: 1. Status post kyphoplasty L2, vertebral body biopsy L2 and as well as biplanar fluoroscopy guidance for L2 compression facture. 2. Postoperative bleeding, controlled. 3. Coumadin monitoring. 4. Anemia, normocytic anemia for chronic disease. 5. History of atrial fibrillation. 6. History coronary artery disease. 7. History of cerebrovascular accident, transient ischemic attack. 8. History of hard of hearing. 9. History of cardiomyopathy. 10. History of AICD. 11. History of degenerative joint disease. RECOMMENDATIONS AND DISCUSSION: I recommend to continue the current medications , continue monitoring, continue symptomatic treatment. I recommend to hold the Coumadin today and initiate the Coumadin ( ) daily check on Coumadin at home. Continue following with the primary physician. A boost in dose of Coumadin may be required. However, please note that the bridging is not an option at this time because of the significant bleeding postoperatively. See orders for details. Further recommendations per Orthopedic Surgery. Further recommendations to follow. MTDD
== END 2017-01-17 13:08 | disposition home or self-care (01) | DRG 478 ==
LOC: 2ORMAIN 11:19 → 3SUR 14:58
PROVIDERS: ADMIT Orthopaedic Surgery Orthopaedic Surgery of the Spine; ATTEND Orthopaedic Surgery Orthopaedic Surgery of the Spine
PROC: 0QS03ZZ Reposition Lumbar Vertebra, Percutaneous Approach (ICD-10-PCS; 2017-01-15)
PROC: 0QU03JZ Supplement Lumbar Vertebra with Synthetic Substitute, Percutaneous Approach (ICD-10-PCS; 2017-01-15)
PROC: 0QB00ZX Excision of Lumbar Vertebra, Open Approach, Diagnostic (ICD-10-PCS; principal; 2017-01-15 13:00)
DX: M80.88XA Other osteoporosis with current pathological fracture, vertebra(e), initial encounter for fracture (principal); N18.4 Chronic kidney disease, stage 4 (severe); I42.9 Cardiomyopathy, unspecified; I13.0 Hypertensive heart and chronic kidney disease with heart failure and stage 1 through stage 4 chronic kidney disease, or unspecified chronic kidney disease; I50.42 Chronic combined systolic (congestive) and diastolic (congestive) heart failure; E27.40 Unspecified adrenocortical insufficiency; I27.2 Other secondary pulmonary hypertension; J44.9 Chronic obstructive pulmonary disease, unspecified; D63.8 Anemia in other chronic diseases classified elsewhere; E78.2 Mixed hyperlipidemia; I25.10 Atherosclerotic heart disease of native coronary artery without angina pectoris; I65.23 Occlusion and stenosis of bilateral carotid arteries; I71.4 Abdominal aortic aneurysm, without rupture; I48.2 Chronic atrial fibrillation; I48.0 Paroxysmal atrial fibrillation; I36.1 Nonrheumatic tricuspid (valve) insufficiency; G89.4 Chronic pain syndrome; I35.1 Nonrheumatic aortic (valve) insufficiency; R53.1 Weakness; N40.0 Benign prostatic hyperplasia without lower urinary tract symptoms; L40.9 Psoriasis, unspecified; H91.90 Unspecified hearing loss, unspecified ear; R26.9 Unspecified abnormalities of gait and mobility; H26.9 Unspecified cataract; F12.90 Cannabis use, unspecified, uncomplicated; K22.70 Barrett's esophagus without dysplasia; G47.33 Obstructive sleep apnea (adult) (pediatric); R25.1 Tremor, unspecified; R06.7 Sneezing; R42 Dizziness and giddiness; K21.9 Gastro-esophageal reflux disease without esophagitis; Z79.899 Other long term (current) drug therapy; Z79.01 Long term (current) use of anticoagulants; Z95.810 Presence of automatic (implantable) cardiac defibrillator; Z87.891 Personal history of nicotine dependence; Z86.79 Personal history of other diseases of the circulatory system; Z86.73 Personal history of transient ischemic attack (TIA), and cerebral infarction without residual deficits; Z88.1 Allergy status to other antibiotic agents; Z88.5 Allergy status to narcotic agent; Z87.440 Personal history of urinary (tract) infections; Z86.19 Personal history of other infectious and parasitic diseases; Z79.82 Long term (current) use of aspirin; Z79.891 Long term (current) use of opiate analgesic; Z82.49 Family history of ischemic heart disease and other diseases of the circulatory system; Z90.49 Acquired absence of other specified parts of digestive tract; Z71.3 Dietary counseling and surveillance; Z98.41 Cataract extraction status, right eye; Z95.3 Presence of xenogenic heart valve; Z83.2 Family history of diseases of the blood and blood-forming organs and certain disorders involving the immune mechanism; Z87.81 Personal history of (healed) traumatic fracture; W19.XXXA Unspecified fall, initial encounter
CPT/HCPCS: 72100; 85025; 85610; 86850; 86900; 86901; 88307; 88311; 94660

== ENCOUNTER 2017-03-01 16:01 | Emergency (ER) | payer MEDICARE, BC ==
[2017-03-01] MEDS ORDERED: HYDROmorphone 1 MG/ML 1 ML SYRINGE IVP STA (16:43)
[2017-03-01 16:53] LABS: Appearance,Urine Clear (Clear); Bilirubin,Urine Negative (Negative); Glucose,Urine (UA) Negative (Negative); Ketones,Urine Negative (Negative); Leukocyte Esterase,Urine Negative (Negative); Nitrite,Urine Negative (Negative); PH, Urine 5.5 (5.0-8.0); Protein,Urine Negative (Negative); Specific Gravity,Urine 1.007 (1.001-1.035); UA Billing (MACRO vs. MICRO) CHEM; Urobilinogen,Urine <2.0 mg/dL (<2.0)
--- NOTE | 2017-03-01 16:53 | ED ---
Back Pain [facility] - General Chief Complaint: Back Pain/Injury Stated Complaint: Back Pain, Med refill Time Seen by Provider: 03/01/17 16:15 Source: patient Limitations: no limitations - History of Present Illness Initial Comments: Patient is a 76-year-old male with multiple histories and a history of chronic back pain who presents for exacerbation of chronic back pain. Patient recently had cementing of his lumbar vertebrae secondary to an injury that happened in July. This was one month ago. Patient is chronically on narcotic pain medications for pain control, and he states that recently his doctors have been trying to wean him off of it. [facility] report was reviewed, patient appears to get regular prescriptions every month with consistent prescribers. Patient states he has a doctor's appointment tomorrow. Patient mostly complains today of pain in his upper back which is chronic for him secondary to multiple shoulder surgeries. Patient denies any new pains, he denies any shortness of breath or chest pain, he further denies any saddle anesthesia, leg numbness or tingling, or bowel or bladder incontinence. MD Complaint: back pain Similar Symptoms Previously: Yes Place: home Radiation: none Severity: moderate, severe Quality: aching Consistency: constant Improves With: medication Worsens With: movement Associated Symptoms: denies other symptoms Treatments Prior to Arrival: prescription analgesics - Related Data Home Medications Medication Instructions Recorded Confirmed FLUoxetine HCL [PROzac] 20 mg PO HS 11/24/13 03/01/17 Folic Acid 1 mg PO SUMOTUWETHSA 11/24/13 03/01/17 Methotrexate Sodium [Methotrexate] 5 mg PO FR 11/24/13 03/01/17 Pantoprazole Sodium [Protonix] 40 mg PO BID 11/24/13 03/01/17 Calcitriol 0.5 mcg PO WEFR 05/29/16 03/01/17 Donepezil [Aricept] 5 mg PO HS 05/29/16 03/01/17 Magnesium Oxide 400 mg PO QAM 05/29/16 03/01/17 Aspirin EC [Ecotrin Low Dose] 81 mg PO QAM 09/09/16 03/01/17 Cholecalciferol [Vitamin D3] 400 unit PO DAILY 12/29/16 03/01/17 Fludrocortisone [Florinef] 0.05 mg PO DAILY 01/09/17 03/01/17 Atorvastatin [Lipitor] 40 mg PO DAILY 03/01/17 03/01/17 Dronabinol [Marinol] 5 mg PO BID 03/01/17 03/01/17 HYDROcodone/APAP 5-325MG [[place] 1 tab PO Q8H PRN 03/01/17 03/01/17 5-325] Metoprolol Tartrate [Lopressor] 12.5 mg PO BID 03/01/17 03/01/17 Warfarin [Coumadin] 1 mg PO SUMOWEFRSA 03/01/17 03/01/17 Warfarin [Coumadin] 2 mg PO TUTH 03/01/17 03/01/17 Previous Rx's Medication Instructions Recorded HYDROcodone/APAP 10-325MG [[place] 1 tab PO Q6H PRN #4 tab 03/01/17 10-325] Methocarbamol [Robaxin-750] 750 mg PO TID #10 tablet 03/01/17 Allergies Allergy/AdvReac Type Severity Reaction Status Date / Time fentanyl AdvReac Nausea Verified 03/01/17 16:46 levofloxacin [From Levaquin] AdvReac Hallucinati Verified 03/01/17 16:46 ons methadone [Methadone] AdvReac Nausea Verified 03/01/17 16:46 morphine AdvReac Nausea Verified 03/01/17 16:46 oxycodone HCl AdvReac Leg Cramps Verified 03/01/17 16:46 [From OxyContin] Review of Systems ROS Statement: Those systems with pertinent positive or pertinent negative responses have been documented in the HPI. ROS Other: All systems not noted in ROS Statement are negative. Constitutional: Denies: fever, chills Respiratory: Denies: cough, dyspnea Cardiovascular: Denies: chest pain, palpitations Endocrine: Denies: fatigue, heat or cold intolerance Gastrointestinal: Denies: abdominal pain, nausea, vomiting Genitourinary: Denies: dysuria, frequency Musculoskeletal: Reports: back pain Skin: Denies: rash Neurological: Denies: headache, weakness, numbness, paresthesias Psychiatric: Denies: anxiety Past Medical History Past Medical History: Atrial Fibrillation, Heart Failure, CVA/TIA, GERD/Reflux, Hearing Disorder / Deafness, Hyperlipidemia, Hypertension, Prostate Disorder, Renal Disease, Skin Disorder Additional Past Medical History / Comment(s): Coronary artery disease with recent cardiac catheterization showing nonocclusive disease and this was done at , cardiomyopathy with impaired LV function, AICD placement , previous history of TIA, approximately atrial fibrillation, mitral valve replacement, stage IV renal failure, GERD, infrarenal abdominal aortic aneurysm measuring 5.2 cm in size, previous fall, lumbar L2 spine fracture, GERD, prostate enlargement, hypertension, Jenkins's esophagus, 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 , vitamin D deficiency, not cancerous lesion removed from the right nostril, chronic back pain, weight loss, psoriasis History of Any Multi-Drug Resistant Organisms: None Reported Past Surgical History: AICD, Appendectomy, Cardiac Valve Replacement, Cholecystectomy, Joint Replacement, Orthopedic Surgery, Tonsillectomy Additional Past Surgical History / Comment(s): 2006 MITRAL VALVE REPLACED, RIGHT EYE SURGERY D/T INJURY, left shoulder replacement, total of 7 bilateral shoulder surgeries, pain clinic procedures, radio frequency tx for Jenkins's, EGD/colonoscopy, riky cataracts removed with lens implants, Past Anesthesia/Blood Transfusion Reactions: Previous Problems w/ Anesthesia Additional Past Anesthesia/Blood Transfusion Reaction / Comment(s): confused for 21 days after mitral valve replacement at [facility] in 2006 Type of Cardiac Device: AICD Device Placement Date:: 2014.WORKING OUT WORK[employer]ronic-serial [id number], model [id number] Past Psychological History: Anxiety, Depression Smoking Status: Former smoker - Past Family History Sister(s) Family Medical History: Cancer Father Family Medical History: Congestive Heart Failure (CHF), Eye Disorder, Rheumatoid Arthritis (RA) Additional Family Medical History / Comment(s): Father had macular degeneration. He at the age of 83yrs. Mother Family Medical History: Dementia Additional Family Medical History / Comment(s): Mother at the age of 81yrs. General Exam Limitations: no limitations General appearance: alert, in no apparent distress Head exam: Present: atraumatic, normocephalic Eye exam: Present: normal appearance, PERRL Pupils: Present: miosis ENT exam: Present: normal exam, normal oropharynx Neck exam: Present: normal inspection. Absent: tenderness Respiratory exam: Present: normal lung sounds bilaterally. Absent: respiratory distress, wheezes Cardiovascular Exam: Present: regular rate, normal rhythm GI/Abdominal exam: Present: soft. Absent: distended, tenderness Rectal exam: Present: deferred Extremities exam: Present: normal inspection. Absent: tenderness, pedal edema Back exam: Present: tenderness, paraspinal tenderness, other (There is no midline tenderness to palpation or percussion) Neurological exam: Present: alert, oriented X3, other (Patient is able to ambulate with assistance from his . Patient and his stated this is normal for him, they're been no changes.) Psychiatric exam: Present: normal affect, normal mood Skin exam: Present: warm, dry, intact Course Vital Signs 03/01/17 16:03 Temperature 97.2 F L Pulse Rate 76 Respiratory 18 Rate Blood Pressure 135/55 O2 Sat by Pulse 97 Oximetry Medical Decision Making - Medical Decision Making Patient presents with a chief complaint of chronic back pain exacerbation. On initial evaluation, vital signs are stable, patient is in no distress. Patient states that he is under the care of Dr. Lewis states that he has been on narcotic pain medications for control of chronic pain for 10 or 11 years. Recently his doctors have been trying to wean him off. Patient recently had surgery 4 weeks ago to have his lumbar spine cemented secondary to a fall. At present, history and physical examination are consistent with chronic musculoskeletal back pain, chronic opioid use. Patient does not appear to be seeking narcotic medications however pain control will be an issue for him given his history. I discussed the risks and benefits of narcotic pain medications with this patient explained that chronic medications are not a good option for long-term pain control. I discussed care plan with the patient, I am willing to treat his pain in the emergency department and give him a short course of pain medications to get him to his follow-up appointment tomorrow. I further instructed that he should be under the care of a pain specialist, and he needs to discuss this with his primary care physician. We'll check basic blood work including electrolytes, and urinalysis to rule out other extraneous causes of back pain. Patient and his are agreeable with this care plan. 6:01 PM Reexamination, patient states his pain is improved. Lab evaluation of this patient is unremarkable. There is evidence of chronic kidney disease, his creatinine and BUNs today are similar with prior visits. At this point I reviewed the care plan with the patient and his . They are agreeable with current care plan and agree to follow up tomorrow with her already scheduled appointment. Patient was given explicit instructions on signs and symptoms that should prompt return visit to the emergency department. - Lab Data Result diagrams: 03/01/17 17:10 03/01/17 17:10 Lab Results 03/01/17 03/01/17 03/01/17 Range/Units 16:44 17:10 17:10 WBC 7.3 (3.8-10.6) k/uL RBC 3.90 L (4.30-5.90) m/uL Hgb 9.3 L (13.0-17.5) gm/dL Hct 30.5 L (39.0-53.0) % MCV 78.3 L (80.0-100.0) fL MCH 23.8 L (25.0-35.0) pg MCHC 30.3 L (31.0-37.0) g/dL RDW 19.0 H (11.5-15.5) % Plt Count 283 (150-450) k/uL Sodium 142 (137-145) mmol/L Potassium 3.6 (3.5-5.1) mmol/L Chloride 105 (98-107) mmol/L Carbon Dioxide 25 (22-30) mmol/L Anion Gap 12 mmol/L BUN 24 H (9-20) mg/dL Creatinine 2.10 H (0.66-1.25) mg/dL Est GFR (MDRD) Af Amer 37 (>60 ml/min/1.73 sqM) Est GFR (MDRD) Non-Af 31 (>60 ml/min/1.73 sqM) Glucose 98 (74-99) mg/dL Calcium 9.3 (8.4-10.2) mg/dL Urine Color Light Yellow Urine Appearance Clear (Clear) Urine pH 5.5 (5.0-8.0) Ur Specific [place] 1.007 (1.001-1.035) Urine Protein Negative (Negative) Urine Glucose (UA) Negative (Negative) Urine Ketones Negative (Negative) Urine Blood Negative (Negative) Urine Nitrite Negative (Negative) Urine Bilirubin Negative (Negative) Urine Urobilinogen <2.0 (<2.0) mg/dL Ur Leukocyte Esterase Negative (Negative) Disposition Clinical Impression: Chronic back pain, Low back pain, Chronic pain disorder Disposition: HOME SELF-CARE Condition: Good Instructions: Chronic Back Pain (ED) Referrals: Jorge Lewis DO [Primary Care Provider] - 1-2 days
[2017-03-01 17:33] LABS: Anisocytosis Slight; Aty Lym Flag Slight; CHCM 29.5; HCT 30.5 % (39.0-53.0); HDW 3.68; HGB 9.3 gm/dL (13.0-17.5); Hypochromasia Marked; MCH 23.8 pg (25.0-35.0); MCHC 30.3 g/dL (31.0-37.0); MCV 78.3 fL (80.0-100.0); Mean Platelet Volume 8.1; Microcytosis Slight; Poikilocytosis Slight; WBC 7.3 k/uL (3.8-10.6); WBC (Perox) 7.55
[2017-03-01 17:37] LABS: Calcium 9.3 mg/dL (8.4-10.2); Potassium 3.6 mmol/L (3.5-5.1)
[2017-03-01 18:07] LABS: Add Differential Manual Differential
[2017-03-01 18:10] LABS: Nucleated Red Blood Cells 0 /100 WBC (0-0); Total Cells Counted 100
[2017-03-01 18:26] VITALS: BP 132/61; PULSE 73; RESP 15; TEMP 97.1
== END 2017-03-01 18:29 | disposition home or self-care (01) ==
LOC: EC 16:01
DX: G89.29 Other chronic pain (principal); M54.5 Low back pain; I12.9 Hypertensive chronic kidney disease with stage 1 through stage 4 chronic kidney disease, or unspecified chronic kidney disease; N18.4 Chronic kidney disease, stage 4 (severe); E78.5 Hyperlipidemia, unspecified; I48.91 Unspecified atrial fibrillation; K21.9 Gastro-esophageal reflux disease without esophagitis; L40.9 Psoriasis, unspecified; E55.9 Vitamin D deficiency, unspecified; Z87.891 Personal history of nicotine dependence; Z79.01 Long term (current) use of anticoagulants; Z79.82 Long term (current) use of aspirin; Z79.899 Other long term (current) drug therapy; Z88.1 Allergy status to other antibiotic agents; Z88.5 Allergy status to narcotic agent; Z86.39 Personal history of other endocrine, nutritional and metabolic disease; Z86.73 Personal history of transient ischemic attack (TIA), and cerebral infarction without residual deficits; Z98.890 Other specified postprocedural states
CPT/HCPCS: 36415; 80048; 85025; 81003; 99283; 96374; J1170

== ENCOUNTER → 2017-03-15 | Outpatient (CLI) | payer MEDICARE, BC ==
[2017-03-15 15:10] LABS: Appearance,Urine Clear (Clear); Bilirubin,Urine Negative (Negative); Glucose,Urine (UA) Negative (Negative); Ketones,Urine Negative (Negative); Leukocyte Esterase,Urine Negative (Negative); Nitrite,Urine Negative (Negative); PH, Urine 6.5 (5.0-8.0); Protein,Urine Negative (Negative); Specific Gravity,Urine 1.007 (1.001-1.035); UA Billing (MACRO vs. MICRO) CHEM; Urobilinogen,Urine <2.0 mg/dL (<2.0)
[2017-03-15 15:24] LABS: Anisocytosis Slight; CHCM 28.5; HCT 35.3 % (39.0-53.0); HDW 3.63; HGB 10.3 gm/dL (13.0-17.5); Hypochromasia Marked; MCH 23.5 pg (25.0-35.0); MCHC 29.1 g/dL (31.0-37.0); MCV 80.9 fL (80.0-100.0); Mean Platelet Volume 7.9; Microcytosis Slight; Poikilocytosis Slight; RBC 4.37 m/uL (4.30-5.90); RDW 19.4 % (11.5-15.5); WBC 7.3 k/uL (3.8-10.6); WBC (Perox) 8.03
[2017-03-15 15:31] LABS: ALT 29 U/L (21-72); AST 30 U/L (17-59); Alkaline Phosphatase 122 U/L (38-126); Anion Gap 12 mmol/L; Blood Urea Nitrogen 21 mg/dL (9-20); Calcium 9.7 mg/dL (8.4-10.2); Carbon Dioxide 28 mmol/L (22-30); Chloride 102 mmol/L (98-107); Glucose 113 mg/dL (74-99); Magnesium 1.7 mg/dL (1.6-2.3); Non-African American GFR(MDRD) 23 (>60 ml/min/1.73 sqM); Phosphorous 3.2 mg/dL (2.5-4.5); Potassium 4.4 mmol/L (3.5-5.1); Sodium 142 mmol/L (137-145); Total Bilirubin 0.9 mg/dL (0.2-1.3); Total Protein 6.6 g/dL (6.3-8.2); Uric Acid 10.7 mg/dL (3.5-8.5)
[2017-03-15 16:34] LABS: Vitamin B12 436 pg/mL
[2017-03-15 20:42] LABS: Add Differential Manual Differential
[2017-03-15 20:44] LABS: Nucleated Red Blood Cells 0 /100 WBC (0-0); Total Cells Counted 100
[2017-03-15 20:45] LABS: Polychromasia Present
[2017-03-15 22:01] LABS: Erythrocyte Sedimentation Rate 28 mm/hr (0-15)
[2017-03-16 12:36] LABS: Free Kappa Lt Chain Qnt, Serum 2.25 mg/dL (0.33-1.94)
== END | disposition home or self-care (01) ==
LOC: LABWHC1 14:37
PROVIDERS: ATTEND Dermatology Dermatopathology
DX: N18.4 Chronic kidney disease, stage 4 (severe) (principal); E55.9 Vitamin D deficiency, unspecified; E83.39 Other disorders of phosphorus metabolism; R80.9 Proteinuria, unspecified
CPT/HCPCS: 36415; 80053; 81003; 82306; 82570; 82607; 82652; 82746; 83735; 83883; 83970; 84100; 84156; 84166; 84550; 85025; 85652

== ENCOUNTER → 2017-03-23 | Outpatient (CLI) | payer MEDICARE, BC ==
--- NOTE | 2017-03-23 13:27 | CT ---
EXAMINATION TYPE: CT cervical spine wo con DATE OF EXAM: 03/23/2017 COMPARISON: CT cervical spine February 07, 2013. HISTORY: Neck pain CT DLP: 1195 mGycm. Automated Exposure Control for Dose Reduction was Utilized. TECHNIQUE: CT scan of the cervical spine is obtained without contrast, axial images are obtained, sa gittal and coronal reformatted images are also reviewed. FINDINGS: Cervical spine is visualized in its entirety from C1 through upper thoracic levels, demonst rates straightened alignment without evidence of acute fracture or dislocation. Prevertebral soft ti ssue appears within normal limits. The C1-C2 articulation is within normal limits on the coronal lissy ges. Vertebral body heights are maintained. There is moderate disc space narrowing with mild spurring C3-C 4 level redemonstrated. There is mild disc space narrowing with moderate spurring C5-C6 level redemon strated. There is moderate spurring and disc space narrowing C6-C7 level. There is persistent promine nt right paracentral spur disc complex on sagittal image 20 effacing anterior thecal sac. Axial images show C2-C3 level to appear within normal limits. Axial images at C3-C4 level show uncovertebral facet degenerative changes and marginal spurring with right paracentral spur disc complex. There is asymmetric moderate to advanced right and mild/moderate left-sided neural foraminal narrowing with effacement of right anterior spinal canal noted. Axial images at C4-C5 level show uncovertebral facet degenerative changes bilaterally contributing to asymmetric mild right greater than left neural foraminal narrowing. Spinal canal is preserved. Axial images at C5-C6 level shows small central disc protrusion mildly effacing anterior thecal sac, bilateral neural foramina are patent. Axial images at C6-C7 level show prominent right paracentral spur disc complex effacing anterolateral thecal sac with mild to moderate right greater than left bilateral neural foraminal narrowing at thi s level redemonstrated. Axial images at C7-T1 level are felt within normal limits. There is partial visualization of cardiac pacemaker wires and sternal wires. There is partial visuali zation of emphysematous change in the upper lungs. There is fairly moderate to severe calcified plaqu e at bilateral carotid bulbs, right greater than left. IMPRESSION: Straightening of cervical spine with multilevel degenerative changes seen most prominent at C3-C4 and C6-C7 levels with further details as noted above.
== END | disposition home or self-care (01) ==
LOC: RADCTMAIN 12:52
PROVIDERS: ATTEND Physical Medicine & Rehabilitation
DX: M47.812 Spondylosis without myelopathy or radiculopathy, cervical region (principal); M40.12 Other secondary kyphosis, cervical region; G89.29 Other chronic pain; M79.1 Myalgia; M19.011 Primary osteoarthritis, right shoulder; M19.012 Primary osteoarthritis, left shoulder
CPT/HCPCS: 72125

== ENCOUNTER → 2017-04-04 | Outpatient (CLI) | payer MEDICARE, BC ==
--- NOTE | 2017-04-04 15:14 | NM ---
EXAMINATION TYPE: NM parathyroid DATE OF EXAM: 04/04/2017 COMPARISON: CT cervical spine 03/23/2017 HISTORY: Hyperuricemia, E79.0 TECHNIQUE: Following administration of 25.9 mCi Tc99m Sestamibi. Anterior projection images of the neck and ches t were obtained 10 minutes and 3 hours post injection FINDINGS: Thyroid tracer washout: Delayed images demonstrate near-complete tracer washout from the thyroid. Parathyroid uptake: None. The 3-hour delayed images do not demonstrate any focal abnormal persistent uptake in the region of the parathyroid glands to suggest parathyroid adenoma. Normal uptake: There is physiological tracer uptake in the salivary glands and thyroid gland. IMPRESSION: Normal parathyroid imaging study. No evidence for mediastinal uptake to suggest mediastinal parathyro id adenoma
== END | disposition home or self-care (01) ==
LOC: RADNMMAIN 11:23
PROVIDERS: ATTEND Internal Medicine
DX: E79.0 Hyperuricemia without signs of inflammatory arthritis and tophaceous disease (principal)
CPT/HCPCS: 78070; A9500

== ENCOUNTER → 2017-04-09 | Outpatient (CLI) | payer MEDICARE, BC | END | disposition home or self-care (01) | LOC: LABWHC1 14:04 | PROVIDERS: ATTEND Physical Medicine & Rehabilitation | DX: M47.812 Spondylosis without myelopathy or radiculopathy, cervical region (principal); G89.29 Other chronic pain; M79.1 Myalgia; M50.321 Other cervical disc degeneration at C4-C5 level; M19.011 Primary osteoarthritis, right shoulder; M19.012 Primary osteoarthritis, left shoulder | CPT/HCPCS: 36415; 84165 ==

== ENCOUNTER → 2017-08-01 | Outpatient (CLI) | payer MEDICARE, BC ==
[2017-08-01 13:21] VITALS: BP 125/60; PULSE 83; RESP 18
--- NOTE | 2017-08-01 15:48 | P.CONS ---
History of Present Illness - Reason for Consult Consult date: 08/01/17 - History of Present Illness This is 77 years old male with history of severe and chronic neck pain, patient was referred to [facility] pain clinic for radiofrequency ablation of the medial branch cervical area at C2 through C5, patient had diagnostic medial branch block done at [facility] and he got 100% relief on 2 different occasions, and because patient had the AICD he was referred to [facility] to have radiofrequency ablation done at the hospital setting, the patient reported that the intensity of his pain is 7/10 increased with any activity, his currently on Coumadin because of atrial fibrillation Past Medical History Past Medical History: Atrial Fibrillation, Heart Failure, CVA/TIA, GERD/Reflux, Hearing Disorder / Deafness, Hyperlipidemia, Hypertension, Prostate Disorder, Renal Disease, Skin Disorder Additional Past Medical History / Comment(s): Coronary artery disease with recent cardiac catheterization showing nonocclusive disease and this was done at [facility], cardiomyopathy with impaired LV function, AICD placement , previous history of TIA, approximately atrial fibrillation, mitral valve replacement, stage IV renal failure, GERD, infrarenal abdominal aortic aneurysm measuring 5.2 cm in size, previous fall, lumbar L2 spine fracture, GERD, prostate enlargement, hypertension, Jenkins's esophagus, 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 , vitamin D deficiency, not cancerous lesion removed from the right nostril, chronic back pain, weight loss, psoriasis History of Any Multi-Drug Resistant Organisms: None Reported Past Surgical History: AICD, Appendectomy, Cardiac Valve Replacement, Cholecystectomy, Joint Replacement, Orthopedic Surgery, Tonsillectomy Additional Past Surgical History / Comment(s): 2006 MITRAL VALVE REPLACED, RIGHT EYE SURGERY D/T INJURY, left shoulder replacement, total of 7 bilateral shoulder surgeries, pain clinic procedures, radio frequency tx for Jenkins's, EGD/colonoscopy, riyk cataracts removed with lens implants, AICD, spinal fracture repair Past Anesthesia/Blood Transfusion Reactions: Previous Problems w/ Anesthesia Additional Past Anesthesia/Blood Transfusion Reaction / Comm: confused for 21 days after mitral valve replacement at [facility] in 2006 Type of Cardiac Device: AICD Device Placement Date:: 2014.[employer]-serial [id number], model [id number] Past Psychological History: Anxiety, Depression Additional Psychological History / Comment(s): Pt resides with his spouse. He uses a cane or walker to ambulate. He drives. Smoking Status: Former smoker Past Alcohol Use History: None Reported Additional Past Alcohol Use History / Comment(s): quit smoking 1988, smoked for about 20 yrs- 1 PPD Past Drug Use History: None Reported - Past Family History Sister(s) Family Medical History: Cancer Father Family Medical History: Congestive Heart Failure (CHF), Eye Disorder, Rheumatoid Arthritis (RA) Additional Family Medical History / Comment(s): Father had macular degeneration. He at the age of 83yrs. Mother Family Medical History: Dementia Additional Family Medical History / Comment(s): Mother at the age of 81yrs. Medications and Allergies Home Medications Medication Instructions Recorded Confirmed Type FLUoxetine HCL [PROzac] 20 mg PO HS 11/24/13 08/01/17 History Folic Acid 1 mg PO 11/24/13 08/01/17 History Methotrexate Sodium [Methotrexate] 5 mg PO FR 11/24/13 08/01/17 History Pantoprazole Sodium [Protonix] 40 mg PO BID 11/24/13 08/01/17 History Calcitriol 0.5 mcg PO WEFR 05/29/16 08/01/17 History Donepezil [Aricept] 5 mg PO 05/29/16 08/01/17 History Magnesium Oxide 400 mg PO QAM 05/29/16 08/01/17 History Aspirin EC [Ecotrin Low Dose] 81 mg PO QAM 09/09/16 08/01/17 History Atorvastatin [Lipitor] 40 mg PO DAILY 03/01/17 08/01/17 History Metoprolol Tartrate [Lopressor] 12.5 mg PO BID 03/01/17 08/01/17 History Warfarin [Coumadin] 1 mg PO SUMOWEFRSA 03/01/17 08/01/17 History Warfarin [Coumadin] 2 mg PO TU 03/01/17 08/01/17 History Allopurinol [Zyloprim] 100 mg PO DAILY 05/07/17 08/01/17 History CHLORPHEN-HYDROcod 8-10mg/5ml 5 ml PO Q12HR 05/07/17 08/01/17 History [Tussionex] Furosemide [Lasix] 20 mg PO DAILY 05/21/17 08/01/17 History Tamsulosin [Flomax] 0.4 mg PO DAILY 05/21/17 08/01/17 History HYDROcodone/APAP 10-325MG [Arley 1 tab PO Q6H PRN 06/06/17 08/01/17 History 10-325] Allergies Allergy/AdvReac Type Severity Reaction Status Date / Time fentanyl AdvReac Nausea Verified 08/01/17 13:07 levofloxacin [From Levaquin] AdvReac Hallucinati Verified 08/01/17 13:07 ons methadone [Methadone] AdvReac Nausea Verified 08/01/17 13:07 morphine AdvReac Nausea Verified 08/01/17 13:07 oxycodone HCl AdvReac Leg Cramps Verified 08/01/17 13:07 [From OxyContin] Physical Exam Vitals: Vital Signs Pulse Resp BP Pulse Ox 08/01/17 13:10 83 18 125/60 100 Intake and Output 08/01/17 08/01/17 08/01/17 06:59 14:59 22:59 Other: Weight 92.986 kg Patient Weight 08/02/17 06:59 Weight 92.986 kg Social history : not smoker , NO ETOH , NO Illegal drugs use . Family history : , positive for Review of Systems : 1- Constitutional : no chills , no fever , no night sweats , 2- Ears : no ear discharge , no change in hearing 3-Nose, Mouth ,Throat ; no bleeding gums, no sore throat , no epistaxis , 4-Cardiovascular : Denies chest pain, , no orthopnea , no palpitation 5-Respiratory : occasional cough , occasional dyspnea , no hemoptysis 6-Gastrointestinal :, no change in bowel habits , no coffee- ground emesis . 7-Genitourinary : No hematuria , no discharge , no incontinence, 8-Musculoskeletal gait dysfunction , report neck and low back pain , 9- Neurological : no ataxia , no tremor , no sezure , 10-Psychatric , no suicidal ideation no hallucination 11- Endocrine : no cold intolerence , no polyuria , no polydypsia , 12-Hematologic easy bleeding , easy brusing , 13-Allergic / immunology : no angioedema , no wheezing ,no allergic rhinitis 14-Integumentary : no brttle nails , no change hair / nails , no foot/leg ulcers . Physical Examinations : 1-Constitutional : Cooperative , not in acute distress . 2-HEENT : nech ; supple , no Lymphadenopathy , no Thyromegaly , :eyes , no icterus, no photophobia . ENT : , normal oropharynx , no Thrush 3- Respiratory : Chest clear to auscultations Bilaterally , no wheezing . 4- Cardiovascular : irregular rate and rhythem , S1 , S2 , no S3 , no S4. 5- Gastrointestinal: abdomen soft no tenderness , no organomegally . 6- Genitourinary : Defferred . 7-Integumentary : No cellulitis , no ulcers , normal skin turgor , no cyanotic . 8- neurologic : Cranial nerve II to XII intact , no focal neurological deffecit 9-psychatric : alert , oriented X 3 , appropriate affect , intact judgment and insight . 10-Lymphatic : no Lymphadenopathy. 11- musculoskeltal: normal gait Cervical Spine motor stregnth in the deltoid and biceps, normal right side , normal Left side motor stregnth biceps and the wrist extensors normal right side ,normal left side . motor stregnth in the triceps muscle . normal Right side , normal Left side deep tendon reflexes normal at the biceps , normal at Brachioradialis , normal at triceps. positive cervical facet loading test . Lumber spine moter stegnth lower extremities ,thigh and legs 4/5 Right side , 4/5 Left side deep tendon reflexes : normal Knee Jerk , normal ankle Jerk positive lumber facet Loading Test Results Comments: MRI of the cervical spine done [facility] 03/23/2017 showed multilevel cervical degenerative disc disease from C3 to C5 , and multilevel central disc protrusion Assessment and Plan Plan: Assessment and plan= chronic severe neck pain secondary to cervical degenerative disc disease and cervical spondylosis with cervical facet arthropathy Patient had 2 diagnostic medial branch block done at different pain clinic and he had excellent pain relief and he was referred to [facility] to have radiofrequency ablation of median branch cervical area, patient will be scheduled for radiofrequency ablation (Cervical area C2 to C5 , was started the left side and later on we will do the right side and patient has to stop Coumadin for 5 days Before the procedure, and recheck PT/INR the day of the procedure Time with Patient: Greater than 30
== END | disposition home or self-care (01) ==
LOC: PNWHC3 12:39
PROVIDERS: ATTEND Specialist
DX: G89.29 Other chronic pain (principal); M54.2 Cervicalgia; M50.30 Other cervical disc degeneration, unspecified cervical region; M47.812 Spondylosis without myelopathy or radiculopathy, cervical region; M46.82 Other specified inflammatory spondylopathies, cervical region
CPT/HCPCS: 99211

== ENCOUNTER → 2017-08-01 | Outpatient (CLI) | payer MEDICARE, BC ==
[2017-08-01 13:02] LABS: Appearance,Urine Clear (Clear); Bilirubin,Urine Negative (Negative); Blood,Urine Negative (Negative); Color,Urine Yellow; Glucose,Urine (UA) Negative (Negative); Ketones,Urine Negative (Negative); Leukocyte Esterase,Urine Negative (Negative); Nitrite,Urine Negative (Negative); PH, Urine 5.5 (5.0-8.0); Protein,Urine Trace (Negative); Specific Gravity,Urine 1.014 (1.001-1.035); Urobilinogen,Urine <2.0 mg/dL (<2.0)
[2017-08-01 13:11] LABS: Albumin 4.2 g/dL (3.5-5.0); Magnesium 1.8 mg/dL (1.6-2.3); Phosphorus 2.7 mg/dL (2.5-4.5); Potassium 4.1 mmol/L (3.5-5.1); Total Bilirubin 0.8 mg/dL (0.2-1.3); Total Protein 6.5 g/dL (6.3-8.2); Uric Acid 7.3 mg/dL (3.5-8.5)
[2017-08-01 13:13] LABS: Anisocytosis Moderate; Hypochromasia Marked; MCH 27.7 pg (25.0-35.0); MCHC 29.1 g/dL (31.0-37.0); Macrocytosis Slight; Mean Platelet Volume 8.7; Microcytosis Slight; Platelet Count 285 k/uL (150-450); RBC 5.98 m/uL (4.30-5.90); RDW 23.8 % (11.5-15.5); WBC 7.3 k/uL (3.8-10.6)
[2017-08-01 13:16] LABS: HGB 16.6 gm/dL (13.0-17.5); MCV 95.3 fL (80.0-100.0)
[2017-08-01 13:25] LABS: Creatinine,Urine Random 203.4 mg/dL
[2017-08-01 19:30] LABS: Vitamin D 25 Hydroxy 19.2 ng/mL (30.0-100.0)
[2017-08-01 19:35] LABS: Iron Saturation 14.92 (15.00-50.00)
[2017-08-01 21:23] LABS: Parathyroid Hormone Intact 145.9 pg/mL (14.0-72.0)
== END | disposition home or self-care (01) ==
LOC: LABWHC1 12:21
PROVIDERS: ATTEND Nurse Practitioner Family
DX: N18.4 Chronic kidney disease, stage 4 (severe) (principal); D50.9 Iron deficiency anemia, unspecified; N25.81 Secondary hyperparathyroidism of renal origin; E55.9 Vitamin D deficiency, unspecified; M10.9 Gout, unspecified; N39.0 Urinary tract infection, site not specified
CPT/HCPCS: 36415; 80053; 81003; 82306; 82570; 82728; 83540; 83550; 83735; 83970; 84100; 84156; 84550; 85027

== ENCOUNTER 2017-09-07 10:10 | Emergency (ER) | payer MEDICARE, BC ==
[2017-09-07 10:32] VITALS: BP 100/55; PULSE 80; RESP 16; TEMP 98.5
--- NOTE | 2017-09-07 11:39 | ED ---
Wound/Laceration HPI - General Chief Complaint: Wound/Laceration Stated Complaint: FALL, LEFT ARM INJURY, ON COUMADIN Time Seen by Provider: 09/07/17 11:07 Source: patient Mode of arrival: wheelchair Limitations: no limitations - History of Present Illness Initial Comments: 77 years old male on Coumadin for atrial fibrillation and heart valve disease lost his balance 2 days ago and had his left forearm since he is in a Coumadin he was bleeding it was 2 days ago 1:30 in the morning his found the compression dressing on it did stop the bleeding he has been off the Coumadin for a procedure since Sunday he denies any head injury denies any loss of consciousness has no chest pain no shortness of breath no abdominal pain no symptoms of TIA or CVA no confusion no blurred vision. - Related Data Home Medications Medication Instructions Recorded Confirmed FLUoxetine HCL [PROzac] 20 mg PO HS 11/24/13 09/07/17 Folic Acid 1 mg PO HS 11/24/13 09/07/17 Methotrexate Sodium [Methotrexate] 5 mg PO FR 11/24/13 09/07/17 Pantoprazole Sodium [Protonix] 40 mg PO BID 11/24/13 09/07/17 Calcitriol 0.5 mcg PO WEFR 05/29/16 09/07/17 Donepezil [Aricept] 5 mg PO 05/29/16 09/07/17 Magnesium Oxide 400 mg PO QAM 05/29/16 09/07/17 Aspirin EC [Ecotrin Low Dose] 81 mg PO QAM 09/09/16 09/07/17 Metoprolol Tartrate [Lopressor] 12.5 mg PO BID 03/01/17 09/07/17 Warfarin [Coumadin] 1 mg PO SUMOWEFRSA 03/01/17 09/07/17 Warfarin [Coumadin] 2 mg PO TU 03/01/17 09/07/17 Allopurinol [Zyloprim] 100 mg PO DAILY 05/07/17 09/07/17 CHLORPHEN-HYDROcod 8-10mg/5ml 5 ml PO Q12HR PRN 05/07/17 09/07/17 [Tussionex] Furosemide [Lasix] 20 - 40 mg PO DAILY 05/21/17 09/07/17 Tamsulosin [Flomax] 0.4 mg PO DAILY 05/21/17 09/07/17 Atorvastatin [Lipitor] 40 mg PO DAILY 09/07/17 09/07/17 Ergocalciferol [Vitamin D2] 50,000 unit PO Q14D 09/07/17 09/07/17 Midodrine HCl [ProAmatine] 2.5 mg PO TID 09/07/17 09/07/17 oxyCODONE HCL/ACETAMINOPHEN 1 tab PO Q6HR PRN 09/07/17 09/07/17 [Percocet 10-325 mg] Previous Rx's Medication Instructions Recorded Cephalexin [Keflex] 500 mg PO Q8HR #15 cap 09/07/17 Allergies Allergy/AdvReac Type Severity Reaction Status Date / Time fentanyl AdvReac Nausea Verified 09/07/17 11:13 levofloxacin [From Levaquin] AdvReac Hallucinati Verified 09/07/17 11:13 ons methadone [Methadone] AdvReac Nausea Verified 09/07/17 11:13 morphine AdvReac Nausea Verified 09/07/17 11:13 oxycodone HCl AdvReac Leg Cramps Verified 09/07/17 11:13 [From OxyContin] Review of Systems ROS Statement: Those systems with pertinent positive or pertinent negative responses have been documented in the HPI. ROS Other: All systems not noted in ROS Statement are negative. Past Medical History Past Medical History: Atrial Fibrillation, Heart Failure, CVA/TIA, GERD/Reflux, Hearing Disorder / Deafness, Hyperlipidemia, Hypertension, Prostate Disorder, Renal Disease, Skin Disorder Additional Past Medical History / Comment(s): Coronary artery disease with recent cardiac catheterization showing nonocclusive disease and this was done at [facility], cardiomyopathy with impaired LV function, AICD placement , previous history of TIA, approximately atrial fibrillation, mitral valve replacement, stage IV renal failure, GERD, infrarenal abdominal aortic aneurysm measuring 5.2 cm in size, previous fall, lumbar L2 spine fracture, GERD, prostate enlargement, hypertension, Jenkins's esophagus, 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 , vitamin D deficiency, not cancerous lesion removed from the right nostril, chronic back pain, weight loss, psoriasis History of Any Multi-Drug Resistant Organisms: None Reported Past Surgical History: AICD, Appendectomy, Cardiac Valve Replacement, Cholecystectomy, Joint Replacement, Orthopedic Surgery, Tonsillectomy Additional Past Surgical History / Comment(s): 2006 MITRAL VALVE REPLACED, RIGHT EYE SURGERY D/T INJURY, left shoulder replacement, total of 7 bilateral shoulder surgeries, pain clinic procedures, radio frequency tx for Jenkins's, EGD/colonoscopy, riky cataracts removed with lens implants, AICD, spinal fracture repair Past Anesthesia/Blood Transfusion Reactions: Previous Problems w/ Anesthesia Additional Past Anesthesia/Blood Transfusion Reaction / Comment(s): confused for 21 days after mitral valve replacement at [facility] in 2006 Type of Cardiac Device: AICD Device Placement Date:: 2014.[employer]onic-serial [id number], model [id number] Past Psychological History: Anxiety, Depression Smoking Status: Former smoker Past Alcohol Use History: None Reported Past Drug Use History: None Reported - Past Family History Sister(s) Family Medical History: Cancer Father Family Medical History: Congestive Heart Failure (CHF), Eye Disorder, Rheumatoid Arthritis (RA) Additional Family Medical History / Comment(s): Father had macular degeneration. He at the age of 83yrs. Mother Family Medical History: Dementia Additional Family Medical History / Comment(s): Mother at the age of 81yrs. General Exam - General Exam Comments Initial Comments: General: The patient is awake and alert, in no distress, and does not appear acutely ill. Skin: Skin is warm and dry and no rashes or lesions are noted. Left forearm has a large laceration there to laceration on a farm is about 10 cm long second one is 8 cm long, skin is very thin and there is skin missing between the lacerations him a no signs of any infection at this point Eye: Pupils are equal, round and reactive to light, extra-ocular movements are intact; there is normal conjunctiva bilaterally. Ears, nose, mouth and throat: There are moist mucous membranes and no oral lesions. Neck: The neck is supple, there is no tenderness or JVD. Cardiovascular: There is a regular rate and rhythm. No murmur, rub or gallop is appreciated. Respiratory: To auscultation bilateral, no wheezing no rhonchi no distress respiratory sanchez noticed Gastrointestinal: Soft, non-distended, non-tender abdomen without masses or organomegaly noted. There is no rebound or guarding present. Bowel sounds are unremarkable. Back: There is no tenderness to palpation in the midline. There is no obvious deformity. Musculoskeletal: Normal ROM, no neurovascular deficit noticed on the left forearm and decided he had a laceration. Refills are within normal range no motor or sensory deficits range of motion is full Neurological: CN II-XII intact, Cranial nerves III through XII are intact. There are no obvious motor or sensory deficits. Coordination appears grossly intact. Speech is normal. Psychiatric: Cooperative, appropriate mood & affect, normal judgment. Limitations: no limitations Course Vital Signs 09/07/17 10:28 Temperature 98.5 F Pulse Rate 80 Respiratory 16 Rate Blood Pressure 100/55 O2 Sat by Pulse 96 Oximetry He has had 2 lacerations on his left arm on is a 10 cm long with a one is 8 cm long D/lacerations old lacerations to it happened 2 days ago skin is very inflamed and piece of the skin is missing between the wound, is not a candidate for any wound repair wound was irrigated edges were approximated as close as possible Vaseline impregnated gauze is used to do initial dressing with some Bactroban and he was advised to follow-up with family doctor in 5-7 days or may be gone on on a Keflex 5 mg 3 times a day for next 5 days Disposition Clinical Impression: Laceration Disposition: HOME SELF-CARE Condition: Good Instructions: Laceration (ED) Prescriptions: Cephalexin [Keflex] 500 mg PO Q8HR #15 cap Referrals: Jorge Lewis DO [Primary Care Provider] - 1-2 days
--- NOTE | 2017-09-07 12:42 | XR ---
Left forearm HISTORY: Laceration, trauma 2 views of the left forearm Bone mineralization is reduced. No fracture or dislocation. Alignment is maintained. No evident radio paque foreign body. IMPRESSION: No acute abnormality
== END 2017-09-07 13:00 | disposition home or self-care (01) ==
LOC: EC 10:10
DX: S51.812A Laceration without foreign body of left forearm, initial encounter (principal); E78.5 Hyperlipidemia, unspecified; I11.0 Hypertensive heart disease with heart failure; I50.9 Heart failure, unspecified; I25.10 Atherosclerotic heart disease of native coronary artery without angina pectoris; K21.9 Gastro-esophageal reflux disease without esophagitis; G89.29 Other chronic pain; F32.9 Major depressive disorder, single episode, unspecified; F41.9 Anxiety disorder, unspecified; Z87.891 Personal history of nicotine dependence; Z79.01 Long term (current) use of anticoagulants; Z79.82 Long term (current) use of aspirin; Z79.899 Other long term (current) drug therapy; Z88.1 Allergy status to other antibiotic agents; Z88.5 Allergy status to narcotic agent; Z86.73 Personal history of transient ischemic attack (TIA), and cerebral infarction without residual deficits; W01.198A Fall on same level from slipping, tripping and stumbling with subsequent striking against other object, initial encounter; Y93.89 Activity, other specified; Y92.009 Unspecified place in unspecified non-institutional (private) residence as the place of occurrence of the external cause
CPT/HCPCS: 99283

== ENCOUNTER → 2017-09-11 | Outpatient (CLI) | payer MEDICARE, BC ==
[2017-09-11 13:41] LABS: INR 1.3 (<1.2); Prothrombin Time 12.4 sec (9.0-12.0)
[2017-09-11 13:42] LABS: Partial Thromboplastin Time 25.9 sec (22.0-30.0)
== END | disposition home or self-care (01) ==
LOC: LABWHC1 12:04
PROVIDERS: ATTEND Physical Medicine & Rehabilitation
DX: M47.812 Spondylosis without myelopathy or radiculopathy, cervical region (principal); Z51.81 Encounter for therapeutic drug level monitoring; Z79.01 Long term (current) use of anticoagulants; G89.29 Other chronic pain; M79.1 Myalgia; M50.321 Other cervical disc degeneration at C4-C5 level; M25.511 Pain in right shoulder; M19.011 Primary osteoarthritis, right shoulder; M25.512 Pain in left shoulder; M19.012 Primary osteoarthritis, left shoulder; M35.3 Polymyalgia rheumatica
CPT/HCPCS: 36415; 85610; 85730

== ENCOUNTER → 2017-10-02 | Outpatient (CLI) | payer MEDICARE, BC ==
[2017-10-02 16:53] LABS: INR 1.2 (<1.2); Partial Thromboplastin Time 24.2 sec (22.0-30.0); Prothrombin Time 11.5 sec (9.0-12.0)
== END | disposition home or self-care (01) ==
LOC: LABWHC1 15:44
PROVIDERS: ATTEND Physical Medicine & Rehabilitation
DX: M50.321 Other cervical disc degeneration at C4-C5 level (principal); M47.812 Spondylosis without myelopathy or radiculopathy, cervical region; M19.011 Primary osteoarthritis, right shoulder; M19.012 Primary osteoarthritis, left shoulder; M35.3 Polymyalgia rheumatica; Z51.81 Encounter for therapeutic drug level monitoring; Z79.01 Long term (current) use of anticoagulants
CPT/HCPCS: 36415; 85610; 85730

== ENCOUNTER 2017-10-18 08:59 | Emergency (ER) | payer MEDICARE, BC ==
[2017-10-18] MEDS ORDERED: RX INFO: IV CONTRAST WAS GIVEN 1 EACH MISC MISCELLANE PRN (09:39)
[2017-10-18 10:07] LABS: Anisocytosis Slight; Appearance,Urine Clear (Clear); Basophils # (A) 0.1 k/uL (0-0.2); Basophils % (A) 1 %; Bilirubin,Urine Negative (Negative); Blood,Urine Negative (Negative); Color,Urine Light Yellow; Eosinophils # (A) 0.2 k/uL (0-0.7); Eosinophils % (A) 2 %; Glucose,Urine (UA) Negative (Negative); HCT 45.5 % (39.0-53.0); HGB 15.1 gm/dL (13.0-17.5); Ketones,Urine Negative (Negative); Leukocyte Esterase,Urine Negative (Negative); Lymphocytes # (A) 0.9 k/uL (1.0-4.8); Lymphocytes % (A) 7 %; MCH 30.9 pg (25.0-35.0); MCHC 33.2 g/dL (31.0-37.0); MCV 93.2 fL (80.0-100.0); Mean Platelet Volume 7.8; Monocytes # (A) 0.7 k/uL (0-1.0); Monocytes % (A) 6 %; Neutrophils # (A) 9.9 k/uL (1.3-7.7); Neutrophils % (A) 81 %; Nitrite,Urine Negative (Negative); PH, Urine 5.5 (5.0-8.0); Platelet Count 373 k/uL (150-450); Protein,Urine Negative (Negative); RBC 4.88 m/uL (4.30-5.90); RDW 17.6 % (11.5-15.5); Specific Gravity,Urine 1.013 (1.001-1.035); Urobilinogen,Urine <2.0 mg/dL (<2.0); WBC 12.2 k/uL (3.8-10.6)
[2017-10-18 10:22] LABS: Albumin 3.6 g/dL (3.5-5.0); Calcium 9.3 mg/dL (8.4-10.2); Potassium 4.1 mmol/L (3.5-5.1); Total Bilirubin 0.7 mg/dL (0.2-1.3); Total Protein 5.8 g/dL (6.3-8.2)
[2017-10-18] MEDS ORDERED: MORPHINE SULFATE/PF 10MG/10ML VL IVP STA (10:27)
[2017-10-18] MEDS ORDERED: SODIUM CHLORIDE 0.9% 1,000 ML IV ONE (10:43)
[2017-10-18] MEDS ORDERED: SODIUM CHLORIDE 0.9% 1,000 ML IV SCH (10:45)
--- NOTE | 2017-10-18 10:53 | ED ---
Back Pain HPI - General Source: patient, EMS, RN notes reviewed, old records reviewed Limitations: no limitations <Sharon Norman - Last Filed: 10/18/17 10:51> <Jorge Calvillo - Last Filed: 10/18/17 12:57> - General Chief Complaint: Back Pain/Injury Stated Complaint: Back Pain Time Seen by Provider: 10/18/17 09:31 - History of Present Illness Initial Comments: 77-year-old male history of AAA presents emergency department today chief complaint of 2 days of back pain. He reports it seems to be internal. He did have a fall on Sunday evening. He states that his symptoms did not start exactly after the fall. He reports that he was walking more frequently yesterday. He states that he has had pain that shoots down the legs. He denies any nausea or vomiting or abdominal pain. Denies any chest pain shortness of breath. (Sharon Norman) - Related Data Home Medications Medication Instructions Recorded Confirmed Folic Acid 1 mg PO HS 11/24/13 10/18/17 Methotrexate Sodium [Methotrexate] 5 mg PO FR 11/24/13 10/18/17 Pantoprazole Sodium [Protonix] 40 mg PO BID 11/24/13 10/18/17 Calcitriol 0.5 mcg PO WEFR 05/29/16 10/18/17 Donepezil [Aricept] 5 mg PO HS 05/29/16 10/18/17 Magnesium Oxide 400 mg PO QAM 05/29/16 10/18/17 Aspirin EC [Ecotrin Low Dose] 81 mg PO QAM 09/09/16 10/18/17 Metoprolol Tartrate [Lopressor] 12.5 mg PO BID 03/01/17 10/18/17 Warfarin [Coumadin] 1 mg PO W/SUPPER 03/01/17 10/18/17 Allopurinol [Zyloprim] 100 mg PO DAILY 05/07/17 10/18/17 CHLORPHEN-HYDROcod 8-10mg/5ml 5 ml PO Q12HR PRN 05/07/17 10/18/17 [Tussionex] Furosemide [Lasix] 20 - 40 mg PO DAILY 05/21/17 10/18/17 Tamsulosin [Flomax] 0.4 mg PO DAILY 05/21/17 10/18/17 Atorvastatin [Lipitor] 40 mg PO DAILY 09/07/17 10/18/17 Ergocalciferol [Vitamin D2] 50,000 unit PO Q14D 09/07/17 10/18/17 Midodrine HCl [ProAmatine] 2.5 mg PO TID 09/07/17 10/18/17 DULoxetine HCL [Cymbalta] 30 mg PO HS 10/18/17 10/18/17 HYDROcodone/APAP 10-325MG [[place] 1 tab PO QID PRN 10/18/17 10/18/17 10-325] Previous Rx's Medication Instructions Recorded predniSONE 20 mg PO BID #10 tab 10/18/17 Allergies Allergy/AdvReac Type Severity Reaction Status Date / Time fentanyl AdvReac Nausea Verified 10/18/17 09:33 levofloxacin [From Levaquin] AdvReac Hallucinati Verified 10/18/17 09:33 ons methadone [Methadone] AdvReac Nausea Verified 10/18/17 09:33 oxycodone HCl AdvReac Leg Cramps Verified 10/18/17 09:33 [From OxyContin] Review of Systems ROS Other: All systems not noted in ROS Statement are negative. <Sharon Norman - Last Filed: 10/18/17 10:51> ROS Other: All systems not noted in ROS Statement are negative. <Jorge Calvillo - Last Filed: 10/18/17 12:57> ROS Statement: Those systems with pertinent positive or pertinent negative responses have been documented in the HPI. Past Medical History Past Medical History: Atrial Fibrillation, Heart Failure, CVA/TIA, GERD/Reflux, Hearing Disorder / Deafness, Hyperlipidemia, Hypertension, Prostate Disorder, Renal Disease, Skin Disorder Additional Past Medical History / Comment(s): Coronary artery disease with recent cardiac catheterization showing nonocclusive disease and this was done at [facility], cardiomyopathy with impaired LV function, AICD placement , previous history of TIA, approximately atrial fibrillation, mitral valve replacement, stage IV renal failure, GERD, infrarenal abdominal aortic aneurysm measuring 5.2 cm in size, previous fall, lumbar L2 spine fracture, GERD, prostate enlargement, hypertension, Jenkins's esophagus, 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 , vitamin D deficiency, not cancerous lesion removed from the right nostril, chronic back pain, weight loss, psoriasis History of Any Multi-Drug Resistant Organisms: None Reported Past Surgical History: AICD, Appendectomy, Cardiac Valve Replacement, Cholecystectomy, Joint Replacement, Orthopedic Surgery, Tonsillectomy Additional Past Surgical History / Comment(s): 2006 MITRAL VALVE REPLACED, RIGHT EYE SURGERY D/T INJURY, left shoulder replacement, total of 7 bilateral shoulder surgeries, pain clinic procedures, radio frequency tx for Jenkins's, EGD/colonoscopy, riky cataracts removed with lens implants, AICD, spinal fracture repair Past Anesthesia/Blood Transfusion Reactions: Previous Problems w/ Anesthesia Additional Past Anesthesia/Blood Transfusion Reaction / Comment(s): confused for 21 days after mitral valve replacement at [facility] in 2006 Type of Cardiac Device: AICD Device Placement Date:: 2014.[employer]tronic-serial [id number], model [id number] Past Psychological History: Anxiety, Depression Smoking Status: Former smoker Past Alcohol Use History: None Reported Past Drug Use History: None Reported - Past Family History Sister(s) Family Medical History: Cancer Father Family Medical History: Congestive Heart Failure (CHF), Eye Disorder, Rheumatoid Arthritis (RA) Additional Family Medical History / Comment(s): Father had macular degeneration. He at the age of 83yrs. Mother Family Medical History: Dementia Additional Family Medical History / Comment(s): Mother at the age of 81yrs. <EmersonSharon - Last Filed: 10/18/17 10:51> General Exam Limitations: no limitations General appearance: alert, in no apparent distress Head exam: Present: atraumatic, normocephalic, normal inspection Eye exam: Present: normal appearance, PERRL, EOMI. Absent: scleral icterus, conjunctival injection, periorbital swelling ENT exam: Present: normal exam, mucous membranes moist Neck exam: Present: normal inspection. Absent: tenderness, meningismus, lymphadenopathy Respiratory exam: Present: normal lung sounds bilaterally. Absent: respiratory distress, wheezes, rales, rhonchi, stridor Cardiovascular Exam: Present: regular rate, normal rhythm, normal heart sounds. Absent: systolic murmur, diastolic murmur, rubs, gallop, clicks GI/Abdominal exam: Present: soft, normal bowel sounds. Absent: distended, tenderness, guarding, rebound, rigid Extremities exam: Present: normal inspection, full ROM, normal capillary refill , other (Tenderness over the left ASIS.). Absent: tenderness, pedal edema, joint swelling, calf tenderness Back exam: Present: normal inspection Neurological exam: Present: alert, oriented X3, CN II-XII intact Psychiatric exam: Present: normal affect, normal mood <Sharon Norman - Last Filed: 10/18/17 10:51> <Jorge Calvillo - Last Filed: 10/18/17 12:57> - General Exam Comments Initial Comments: This patient is 77-year-old male. Patient appears in moderate discomfort. Laying on the right side. He reports that his left lower back hurts. (Sharon Norman) Vital Signs 10/18/17 10/18/17 09:17 11:46 Pulse Rate 87 75 Respiratory 20 16 Rate Blood Pressure 171/85 148/62 O2 Sat by Pulse 95 94 L Oximetry Medical Decision Making - Lab Data Result diagrams: 10/18/17 09:46 10/18/17 09:46 <Sharon Norman - Last Filed: 10/18/17 10:51> - Lab Data Result diagrams: 10/18/17 09:46 10/18/17 09:46 <Jorge Calvillo - Last Filed: 10/18/17 12:57> - Medical Decision Making The patient was seen and examined. All diagnostics were reviewed. The patient does relate a history of an old lumbar compression fracture. This current CT does show an L2 lumbar compression fracture which is probably old in nature. It also shows arthritis at the sacroiliac joint. It is very tender over the sacroiliac joints. He likely does have a degree of sacroiliitis. He also has chronic pain syndrome and sees a pain management physician. He is taking [place] 10/325 at home with limited relief. Is felt as though he may benefit from a course of steroids. He is agreeable to this plan. He does have a known abdominal aortic aneurysm. Previously was 4.7 cm and currently is 4.9 cm, a negligible change. He is advised to follow back up with his vascular surgeon in this regard. It is felt as though he should also follow-up with pain management. Laboratory is reviewed and does show some renal insufficiency. It is felt as though he stable for discharge and leaves in no severe distress. ( Jorge Calvillo) - Lab Data Lab Results 10/18/17 10/18/17 10/18/17 Range/Units 09:46 09:46 09:46 WBC 12.2 H (3.8-10.6) k/uL RBC 4.88 (4.30-5.90) m/uL Hgb 15.1 (13.0-17.5) gm/dL Hct 45.5 (39.0-53.0) % MCV 93.2 (80.0-100.0) fL MCH 30.9 (25.0-35.0) pg MCHC 33.2 (31.0-37.0) g/dL RDW 17.6 H (11.5-15.5) % Plt Count 373 (150-450) k/uL Neutrophils % 81 % Lymphocytes % 7 % Monocytes % 6 % Eosinophils % 2 % Basophils % 1 % Neutrophils # 9.9 H (1.3-7.7) k/uL Lymphocytes # 0.9 L (1.0-4.8) k/uL Monocytes # 0.7 (0-1.0) k/uL Eosinophils # 0.2 (0-0.7) k/uL Basophils # 0.1 (0-0.2) k/uL Anisocytosis Slight Sodium 141 (137-145) mmol/L Potassium 4.1 (3.5-5.1) mmol/L Chloride 100 (98-107) mmol/L Carbon Dioxide 27 (22-30) mmol/L Anion Gap 14 mmol/L BUN 36 H (9-20) mg/dL Creatinine 1.77 H (0.66-1.25) mg/dL Est GFR (CKD-EPI)AfAm 42 (>60 ml/min/1.73 sqM) Est GFR (CKD-EPI)NonAf 36 (>60 ml/min/1.73 sqM) Glucose 154 H (74-99) mg/dL Calcium 9.3 (8.4-10.2) mg/dL Total Bilirubin 0.7 (0.2-1.3) mg/dL AST 53 (17-59) U/L ALT 57 (21-72) U/L Alkaline Phosphatase 121 (38-126) U/L Total Protein 5.8 L (6.3-8.2) g/dL Albumin 3.6 (3.5-5.0) g/dL Amylase 122 H (30-110) U/L Lipase 300 (23-300) U/L Urine Color Light Yellow Urine Appearance Clear (Clear) Urine pH 5.5 (5.0-8.0) Ur Specific [place] 1.013 (1.001-1.035) Urine Protein Negative (Negative) Urine Glucose (UA) Negative (Negative) Urine Ketones Negative (Negative) Urine Blood Negative (Negative) Urine Nitrite Negative (Negative) Urine Bilirubin Negative (Negative) Urine Urobilinogen <2.0 (<2.0) mg/dL Ur Leukocyte Esterase Negative (Negative) Disposition <Sharon Norman - Last Filed: 10/18/17 10:51> Time of Disposition: 12:47 <Jorge Calvillo - Last Filed: 10/18/17 12:57> Clinical Impression: Bilateral sacroiliitis, Fall, Back pain, Compression fracture, Renal insufficiency, Chronic pain, AAA (abdominal aortic aneurysm) Disposition: HOME SELF-CARE Condition: Fair Prescriptions: predniSONE 20 mg PO BID #10 tab Referrals: Jorge Lewis DO [Primary Care Provider] - 1-2 days
--- NOTE | 2017-10-18 12:00 | CT ---
EXAMINATION TYPE: CT abdomen pelvis w con DATE OF EXAM: 10/18/2017 COMPARISON: 07/13/2017 HISTORY: 77-year-old male low back pain that radiates into legs. Hx of AAA TECHNIQUE: Contiguous axial scanning of the abdomen and pelvis following administration of 80 mL Isov ue 300 IV contrast. Delayed images through the kidneys and coronal/sagittal reconstructions performe d. CT DLP: 1770.3 mGycm Automated exposure control for dose reduction was used. FINDINGS: Median sternotomy wires are present. Moderate bilateral gynecomastia. Pacer leads and post-CABG costello es. Retained epicardial pacer leads. Some strandy atelectasis/scarring at the lung bases. Tiny hiatal hernia. Streak and beam hardening artifact from the patient's arms down by their side. Within this limitation, no focal liver lesion seen. Portal venous system appears patent. No biliary d uctal dilatation. Cholecystectomy clips. Adrenal glands within normal limits. There is a lateral splenule and calcified granuloma in the splee n. Pancreas shows no gross anomaly. There is diffuse renal cortical thinning on both sides but with symmetric uptake and excretion of con trast from both kidneys. Findings compatible with chronic medical renal disease. No dilated small bowel, free fluid, or free air. Moderate-sized fatty umbilical hernia measuring 4.9 cm wide redemonstrated. No mesenteric or retroperitoneal lymphadenopathy. Appendix not clearly seen. No secondary findings of acute appendicitis in the right lower quadrant. Mild stool burden. There is lower descending and proximal to mid sigmoid diverticulosis. No pericolon ic inflammatory change. Patulous inguinal canals. Bladder partially urine distended. No abnormal fluid collection in the pelvis or pelvic lymphadenopat hy seen. Moderate atherosclerotic calcifications throughout the abdominal aorta and iliac arteries. Redemonstrated is a form of abdominal aortic aneurysm. This measures up to 4.9 cm versus 4.7 cm on . The patent lumen is narrowed down to 3.1 cm. Bones: Degenerative changes at the hips and SI joints. Previous vertebroplasty change and mild compre ssion deformity of L2. IMPRESSION: 1. FUSIFORM AAA. THIS IS STABLE TO MINIMALLY LARGER AT 4.9 CM VERSUS 4.7 CM ON 07/13/2017. 2. LEFT-SIDED DIVERTICULOSIS WITHOUT ACUTE DIVERTICULITIS. 3. MODERATE-SIZED FAT IN THE HERNIA REDEMONSTRATED (NEARLY 5 CM WIDE). 4. CORTICAL THINNING AND RENAL ATROPHY COMPATIBLE WITH CHRONIC MEDICAL RENAL DISEASE.
[2017-10-18] MEDS ORDERED: methylPREDNISolone SOD SUCCI 125 MG/2 ML VIAL IV STA (12:43)
[2017-10-18 13:05] VITALS: BP 150/68; PULSE 72; RESP 18
== END 2017-10-18 13:05 | disposition home or self-care (01) ==
LOC: EC 08:59
DX: M46.1 Sacroiliitis, not elsewhere classified (principal); I71.4 Abdominal aortic aneurysm, without rupture; G89.29 Other chronic pain; I48.91 Unspecified atrial fibrillation; I13.0 Hypertensive heart and chronic kidney disease with heart failure and stage 1 through stage 4 chronic kidney disease, or unspecified chronic kidney disease; N18.4 Chronic kidney disease, stage 4 (severe); I50.9 Heart failure, unspecified; K21.9 Gastro-esophageal reflux disease without esophagitis; E78.5 Hyperlipidemia, unspecified; I25.10 Atherosclerotic heart disease of native coronary artery without angina pectoris; E55.9 Vitamin D deficiency, unspecified; F32.9 Major depressive disorder, single episode, unspecified; F41.9 Anxiety disorder, unspecified; Z87.81 Personal history of (healed) traumatic fracture; Z86.73 Personal history of transient ischemic attack (TIA), and cerebral infarction without residual deficits; Z95.810 Presence of automatic (implantable) cardiac defibrillator; Z88.1 Allergy status to other antibiotic agents; Z88.5 Allergy status to narcotic agent; Z79.01 Long term (current) use of anticoagulants; Z79.82 Long term (current) use of aspirin; Z79.899 Other long term (current) drug therapy; Z87.891 Personal history of nicotine dependence; W19.XXXA Unspecified fall, initial encounter
CPT/HCPCS: 36415; 74177; 80053; 81003; 82150; 83690; 85025; 96361; 96374; 96375; 99285

== ENCOUNTER 2017-10-18 22:19 | Inpatient (IN) | payer MEDICARE, BC ==
[2017-10-18] MEDS ORDERED: NALOXONE 0.4 MG/ML 1 ML VIAL IV PRN (22:57)
--- NOTE | 2017-10-18 22:57 | ED ---
General Adult HPI - General Chief complaint: Back Pain/Injury Stated complaint: back pain Time Seen by Provider: 10/18/17 22:28 Source: patient, RN notes reviewed, old records reviewed Mode of arrival: EMS Limitations: no limitations - History of Present Illness Initial comments: Patient is a pleasant 77-year-old male returning to the emergency Department with back pain. Patient states back in July he did have a fall with compression fracture. Patient has not had much problems since that time. Patient states he goes to the pain clinic for his shoulders, not for his back. Patient had another fall a couple of days ago and landed on his right leg. Patient only had mild muscular discomfort which has essentially resolved. Patient has had more pain in his lower back, more the sacral region. Discomfort does extend towards the legs. Patient states pain is too bad to walk. Patient was in the emergency department morning. Patient states he was offered admission however wanted to go home to attend his [id number]'s . Patient states he is unable to function at home and is not comfortable with discharge. No incontinence or retention of bowel or bladder. No leg weakness. Patient did have computed tomography scan done earlier today. - Related Data Home Medications Medication Instructions Recorded Confirmed Folic Acid 1 mg PO HS 11/24/13 10/18/17 Methotrexate Sodium [Methotrexate] 5 mg PO FR 11/24/13 10/18/17 Pantoprazole Sodium [Protonix] 40 mg PO BID 11/24/13 10/18/17 Calcitriol 0.5 mcg PO WEFR 05/29/16 10/18/17 Donepezil [Aricept] 5 mg PO HS 05/29/16 10/18/17 Magnesium Oxide 400 mg PO QAM 05/29/16 10/18/17 Aspirin EC [Ecotrin Low Dose] 81 mg PO QAM 09/09/16 10/18/17 Metoprolol Tartrate [Lopressor] 12.5 mg PO BID 03/01/17 10/18/17 Warfarin [Coumadin] 1 mg PO W/SUPPER 03/01/17 10/18/17 Allopurinol [Zyloprim] 100 mg PO DAILY 05/07/17 10/18/17 CHLORPHEN-HYDROcod 8-10mg/5ml 5 ml PO Q12HR PRN 05/07/17 10/18/17 [Tussionex] Furosemide [Lasix] 20 - 40 mg PO DAILY 05/21/17 10/18/17 Tamsulosin [Flomax] 0.4 mg PO DAILY 05/21/17 10/18/17 Atorvastatin [Lipitor] 40 mg PO DAILY 09/07/17 10/18/17 Ergocalciferol [Vitamin D2] 50,000 unit PO Q14D 09/07/17 10/18/17 Midodrine HCl [ProAmatine] 2.5 mg PO TID 09/07/17 10/18/17 DULoxetine HCL [Cymbalta] 30 mg PO HS 10/18/17 10/18/17 HYDROcodone/APAP 10-325MG [[place] 1 tab PO QID PRN 10/18/17 10/18/17 10-325] Previous Rx's Medication Instructions Recorded predniSONE 20 mg PO BID #10 tab 10/18/17 Allergies Allergy/AdvReac Type Severity Reaction Status Date / Time fentanyl AdvReac Nausea Verified 10/18/17 22:46 levofloxacin [From Levaquin] AdvReac Hallucinati Verified 10/18/17 22:46 ons methadone [Methadone] AdvReac Nausea Verified 10/18/17 22:46 oxycodone HCl AdvReac Leg Cramps Verified 10/18/17 22:46 [From OxyContin] Review of Systems ROS Statement: Those systems with pertinent positive or pertinent negative responses have been documented in the HPI. ROS Other: All systems not noted in ROS Statement are negative. Constitutional: Denies: fever Eyes: Denies: eye pain ENT: Denies: ear pain Respiratory: Denies: cough Cardiovascular: Denies: chest pain Endocrine: Denies: fatigue Gastrointestinal: Denies: abdominal pain Genitourinary: Denies: dysuria Musculoskeletal: Reports: back pain Skin: Denies: rash Neurological: Denies: weakness Past Medical History Past Medical History: Atrial Fibrillation, Heart Failure, CVA/TIA, GERD/Reflux, Hearing Disorder / Deafness, Hyperlipidemia, Hypertension, Prostate Disorder, Renal Disease, Skin Disorder Additional Past Medical History / Comment(s): Coronary artery disease with recent cardiac catheterization showing nonocclusive disease and this was done at [facility], cardiomyopathy with impaired LV function, AICD placement , previous history of TIA, approximately atrial fibrillation, mitral valve replacement, stage IV renal failure, GERD, infrarenal abdominal aortic aneurysm measuring 5.2 cm in size, previous fall, lumbar L2 spine fracture, GERD, prostate enlargement, hypertension, Jenkins's esophagus, 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 , vitamin D deficiency, not cancerous lesion removed from the right nostril, chronic back pain, weight loss, psoriasis History of Any Multi-Drug Resistant Organisms: None Reported Past Surgical History: AICD, Appendectomy, Cardiac Valve Replacement, Cholecystectomy, Joint Replacement, Orthopedic Surgery, Tonsillectomy Additional Past Surgical History / Comment(s): 2006 MITRAL VALVE REPLACED, RIGHT EYE SURGERY D/T INJURY, left shoulder replacement, total of 7 bilateral shoulder surgeries, pain clinic procedures, radio frequency tx for Jenkins's, EGD/colonoscopy, riky cataracts removed with lens implants, AICD, spinal fracture repair Past Anesthesia/Blood Transfusion Reactions: Previous Problems w/ Anesthesia Additional Past Anesthesia/Blood Transfusion Reaction / Comment(s): confused for 21 days after mitral valve replacement at [facility] in 2006 Type of Cardiac Device: AICD Device Placement Date:: 2014.[employer]-serial [id number], model [id number] Past Psychological History: Anxiety, Depression Smoking Status: Former smoker Past Alcohol Use History: None Reported Past Drug Use History: None Reported - Past Family History Sister(s) Family Medical History: Cancer Father Family Medical History: Congestive Heart Failure (CHF), Eye Disorder, Rheumatoid Arthritis (RA) Additional Family Medical History / Comment(s): Father had macular degeneration. He at the age of 83yrs. Mother Family Medical History: Dementia Additional Family Medical History / Comment(s): Mother at the age of 81yrs. General Exam Limitations: no limitations General appearance: alert Head exam: Present: atraumatic Eye exam: Present: normal appearance, PERRL ENT exam: Present: normal oropharynx Neck exam: Present: normal inspection Respiratory exam: Present: normal lung sounds bilaterally Cardiovascular Exam: Present: regular rate, normal rhythm Expanded Peripheral pulses: 2+: Dorsalis Pedis (R), Dorsalis Pedis (L) GI/Abdominal exam: Present: soft. Absent: distended, tenderness, pulsatile mass Extremities exam: Present: normal inspection, full ROM. Absent: tenderness Back exam: Present: tenderness (Lower sacral region) Neurological exam: Present: alert. Absent: motor sensory deficit Expanded Motor strength exam: RLE: 5, LLE: 5 Psychiatric exam: Present: normal affect, normal mood Skin exam: Present: normal color Course Vital Signs 10/18/17 22:23 Temperature 96.8 F L Pulse Rate 102 H Respiratory 15 Rate Blood Pressure 167/79 O2 Sat by Pulse 98 Oximetry Medical Decision Making - Medical Decision Making Patient states he is not comfortable discharge home and does request admission. Patient has previously been admitted by Dr. sparks, primary care physician is Dr. Liang. Case was discussed with Dr. sparks, who will admit and does request consult with Dr. Pelletier. Disposition Clinical Impression: Back pain Disposition: ADMITTED IP TO THIS HOSP Referrals: Jorge Lewis DO [Primary Care Provider] - 1-2 days Decision Time: 22:57
[2017-10-18] MEDS: MORPHINE SULFATE/PF 10MG/10ML VL IV PRN (23:28)
[2017-10-18] MEDS: SODIUM CHLORIDE 0.9% 1,000 ML IV SCH (23:30)
[2017-10-18 23:31] LABS: INR 4.6 (<1.2); Prothrombin Time 41.7 sec (9.0-12.0)
[2017-10-18 23:33] LABS: Anisocytosis Slight; Basophils % (A) 0 %; Eosinophils % (A) 0 %; HCT 47.7 % (39.0-53.0); HGB 15.6 gm/dL (13.0-17.5); Lymphocytes # (A) 0.3 k/uL (1.0-4.8); Lymphocytes % (A) 2 %; MCH 30.8 pg (25.0-35.0); MCHC 32.6 g/dL (31.0-37.0); MCV 94.6 fL (80.0-100.0); Mean Platelet Volume 7.8; Monocytes # (A) 0.3 k/uL (0-1.0); Monocytes % (A) 2 %; Neutrophils # (A) 12.1 k/uL (1.3-7.7); Neutrophils % (A) 95 %; Platelet Count 405 k/uL (150-450); RBC 5.05 m/uL (4.30-5.90); RDW 17.5 % (11.5-15.5); WBC 12.7 k/uL (3.8-10.6)
[2017-10-18] MEDS ORDERED: ORPHENADRINE 30 MG/ML 2 ML VIAL IVP STA (23:33)
[2017-10-18] MEDS ORDERED: methylPREDNISolone SOD SUCCI 125 MG/2 ML VIAL IV STA (23:33)
[2017-10-18 23:34] LABS: Albumin 3.9 g/dL (3.5-5.0); Calcium 9.7 mg/dL (8.4-10.2); Potassium 4.8 mmol/L (3.5-5.1); Total Protein 6.3 g/dL (6.3-8.2)
[2017-10-19] MEDS ORDERED: MORPHINE SULFATE 4 MG/ML SYRINGE IVP STA (00:36)
[2017-10-19] MEDS: MORPHINE SULFATE/PF 10MG/10ML VL IV PRN ×3 (00:40→10:17)
[2017-10-19] MEDS: methylPREDNISolone SOD SUCCI 125 MG/2 ML VIAL IV SCH ×2 (05:30→12:34)
[2017-10-19] MEDS ORDERED: ORPHENADRINE 30 MG/ML 2 ML VIAL IVP SCH (09:00)
--- NOTE | 2017-10-19 11:16 | P.CNOR ---
History of Present Illness - [facility] Consult date: 10/19/17 Consult reason: low back pain History of present illness: This is a 77-year-old male admitted with intractable low back pain. He has history of L2 compression fracture last year with subsequent kyphoplasty. The patient states that he was doing fairly well but suddenly developed low back pain with lower extremity radiculopathy. He states that the pain radiates from his back down both legs with the right side being worse. He states that he has had a couple of falls recently. His family is present at bedside. Past Medical History Past Medical History: Atrial Fibrillation, Heart Failure, CVA/TIA, GERD/Reflux, Hearing Disorder / Deafness, Hyperlipidemia, Hypertension, Prostate Disorder, Renal Disease, Skin Disorder Additional Past Medical History / Comment(s): Coronary artery disease with recent cardiac catheterization showing nonocclusive disease and this was done at [facility], cardiomyopathy with impaired LV function, AICD placement , previous history of TIA, approximately atrial fibrillation, mitral valve replacement, stage IV renal failure, GERD, infrarenal abdominal aortic aneurysm measuring 5.2 cm in size, previous fall, lumbar L2 spine fracture, GERD, prostate enlargement, hypertension, Jenkins's esophagus, 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 , vitamin D deficiency, not cancerous lesion removed from the right nostril, chronic back pain, weight loss, psoriasis History of Any Multi-Drug Resistant Organisms: None Reported Past Surgical History: AICD, Appendectomy, Cardiac Valve Replacement, Cholecystectomy, Joint Replacement, Orthopedic Surgery, Tonsillectomy Additional Past Surgical History / Comment(s): 2006 MITRAL VALVE REPLACED, RIGHT EYE SURGERY D/T INJURY, left shoulder replacement, total of 7 bilateral shoulder surgeries, pain clinic procedures, radio frequency tx for Jenkins's, EGD/colonoscopy, riky cataracts removed with lens implants, AICD, spinal fracture repair Past Anesthesia/Blood Transfusion Reactions: Previous Problems w/ Anesthesia Additional Past Anesthesia/Blood Transfusion Reaction / Comm: confused for 21 days after mitral valve replacement at [facility] in 2006 Type of Cardiac Device: AICD Device Placement Date:: 2014.[employer]ortexatronic-serial [id number], model [id number] Past Psychological History: Anxiety, Depression Additional Psychological History / Comment(s): Pt resides with his spouse. He uses a cane or walker to ambulate. He drives. Smoking Status: Never smoker Past Alcohol Use History: None Reported Additional Past Alcohol Use History / Comment(s): quit smoking 1988, smoked for about 20 yrs- 1 PPD Past Drug Use History: None Reported - Past Family History Sister(s) Family Medical History: Cancer Father Family Medical History: Congestive Heart Failure (CHF), Eye Disorder, Rheumatoid Arthritis (RA) Additional Family Medical History / Comment(s): Father had macular degeneration. He at the age of 83yrs. Mother Family Medical History: Dementia Additional Family Medical History / Comment(s): Mother at the age of 81yrs. Medications and Allergies Home Medications Medication Instructions Recorded Confirmed Type Folic Acid 1 mg PO HS 11/24/13 10/18/17 History Methotrexate Sodium [Methotrexate] 5 mg PO FR 11/24/13 10/18/17 History Pantoprazole Sodium [Protonix] 40 mg PO BID 11/24/13 10/18/17 History Calcitriol 0.5 mcg PO WEFR 05/29/16 10/18/17 History Donepezil [Aricept] 5 mg PO HS 05/29/16 10/18/17 History Magnesium Oxide 400 mg PO QAM 05/29/16 10/18/17 History Aspirin EC [Ecotrin Low Dose] 81 mg PO QAM 09/09/16 10/18/17 History Metoprolol Tartrate [Lopressor] 12.5 mg PO BID 03/01/17 10/18/17 History Warfarin [Coumadin] 1 mg PO W/SUPPER 03/01/17 10/18/17 History Allopurinol [Zyloprim] 100 mg PO DAILY 05/07/17 10/18/17 History CHLORPHEN-HYDROcod 8-10mg/5ml 5 ml PO Q12HR PRN 05/07/17 10/18/17 History [Tussionex] Furosemide [Lasix] 20 - 40 mg PO DAILY 05/21/17 10/18/17 History Tamsulosin [Flomax] 0.4 mg PO DAILY 05/21/17 10/18/17 History Atorvastatin [Lipitor] 40 mg PO DAILY 09/07/17 10/18/17 History Ergocalciferol [Vitamin D2] 50,000 unit PO Q14D 09/07/17 10/18/17 History Midodrine HCl [ProAmatine] 2.5 mg PO TID 09/07/17 10/18/17 History DULoxetine HCL [Cymbalta] 30 mg PO HS 10/18/17 10/18/17 History HYDROcodone/APAP 10-325MG [[place] 1 tab PO QID PRN 10/18/17 10/18/17 History 10-325] predniSONE 20 mg PO BID #10 tab 10/18/17 10/18/17 Rx Allergies Allergy/AdvReac Type Severity Reaction Status Date / Time fentanyl AdvReac Nausea Verified 10/18/17 22:46 levofloxacin [From Levaquin] AdvReac Hallucinati Verified 10/18/17 22:46 ons methadone [Methadone] AdvReac Nausea Verified 10/18/17 22:46 oxycodone HCl AdvReac Leg Cramps Verified 10/18/17 22:46 [From OxyContin] Physical Examination This is a 69-year-old male in mild distress due to pain. He is alert and oriented at this time. He has a poor historian and he is difficult to examine today due to his discomfort. Exam of the head and neck reveal no obvious deformity. Exam of the lower extremities reveals no obvious deformity. He has full foot ankle motion. There is mild irritability with rotation of the hips. Patient has a difficult time raising each leg off the bed secondary to pain. Dorsiflexion of the great toe against resistance is +4/5 on the right and +3/5 on the left. He has fairly normal sensation to the lower extremities. Pedal pulses are +2/4 bilaterally. Patellar deep tendon reflex is +3/4 bilaterally. The remainder of his musculoskeletal exam is unremarkable. Results No lumbar films have been obtained. CT of the abdomen reveals some degenerative changes of the lumbar spine with evidence of kyphoplasty at L2. - Labs Labs: Abnormal Lab Results - Last 24 Hours (Table) 10/18/17 10/18/17 10/18/17 Range/Units 23:07 23:07 23:07 WBC 12.7 H (3.8-10.6) k/uL RDW 17.5 H (11.5-15.5) % Neutrophils # 12.1 H (1.3-7.7) k/uL Lymphocytes # 0.3 L (1.0-4.8) k/uL PT 41.7 H (9.0-12.0) sec INR 4.6 H (<1.2) BUN 38 H (9-20) mg/dL Creatinine 1.80 H (0.66-1.25) mg/dL Glucose 234 H (74-99) mg/dL AST 72 H (17-59) U/L H & H 10/18/17 Range/Units 23:07 Hgb 15.6 (13.0-17.5) gm/dL Hct 47.7 (39.0-53.0) % Coagulation 10/18/17 Range/Units 23:07 INR 4.6 H (<1.2) Result Diagrams: 10/18/17 23:07 10/18/17 23:07 Assessment and Plan (1) Back pain Current Visit: Yes Status: Acute Code(s): M54.9 - DORSALGIA, UNSPECIFIED SNOMED Code(s): 052097109 (2) Chronic pain Current Visit: No Status: Acute Code(s): G89.29 - OTHER CHRONIC PAIN SNOMED Code(s): 98478277 (3) Fall Current Visit: No Status: Acute Code(s): W19.XXXA - UNSPECIFIED FALL, INITIAL ENCOUNTER SNOMED Code(s): 8326668 Plan: The clinical findings are discussed with the patient. I've discussed the case with Dr. Salinas. The patient is unable to have an MRI secondary to AICD and valve replacement. I have discussed the case with Dr. Campbell who agrees to see the patient. I will order computed tomography scan of the thoracic and lumbar spine. I will hold off on SoluMedrol until the patient is evaluated by Dr. Campbell.
[2017-10-19] MEDS ORDERED: KETOROLAC 30 MG/ML 1 ML VIAL IVP STA (12:19)
[2017-10-19] MEDS ORDERED: BACLOFEN 10 MG TAB PO STA (12:20)
[2017-10-19] MEDS ORDERED: HYDROcodone/APAP 10-325MG 1 EACH TAB PO PRN (12:33)
[2017-10-19] MEDS ORDERED: NAPROXEN 250 MG TAB PO SCH (12:45)
[2017-10-19] MEDS ORDERED: LACTULOSE 20 GM/30 ML CUP PO PRN (12:53)
[2017-10-19] MEDS ORDERED: ONDANSETRON 4 MG/2 ML VIAL IVP PRN (12:53)
[2017-10-19] MEDS ORDERED: MELATONIN 3 MG TABLET PO PRN (12:53)
[2017-10-19] MEDS ORDERED: MAGNESIUM HYDROXIDE 2,400 MG/10 ML CUP PO PRN (12:53)
[2017-10-19] MEDS ORDERED: CALCIUM CARBONATE 500 MG CHEWABLE PO PRN (12:53)
[2017-10-19] MEDS ORDERED: ACETAMINOPHEN TAB 325 MG TAB PO PRN (12:53)
[2017-10-19] MEDS ORDERED: NALOXONE 0.4 MG/ML 1 ML VIAL IV PRN (12:53)
[2017-10-19] MEDS ORDERED: METHOTREXATE SODIUM 2.5 MG TAB PO SCH (13:00)
--- NOTE | 2017-10-19 13:55 | HP ---
HISTORY AND PHYSICAL DATE OF ADMISSION: 10/18/2017 PRESENTING COMPLAINT: Low back pain. HISTORY OF PRESENTING COMPLAINT: A 77-year-old patient who sees Dr. Lewis. Chronic stable medical conditions include atrial fibrillation, CHF, GERD, hypertension, hyperlipidemia, BPH, nonobstructive coronary artery disease, AICD, chronic kidney disease stage 4, abdominal aortic aneurysm, Jenkins's esophagus. The patient underwent L2 kyphoplasty in December of [address] Pelletier. Normally uses a cane or walker. The patient fell about a week ago and after 3 days started having much increasing pain in the lower back, sometimes refers down to the leg. No change in the bowel pattern or urine, but having significant pain especially when he moves it feels a pretty sharp pain. The patient is able to tolerate his diet. There is also a in the family, is quite stressed about the same. Dr. Pelletier from orthopedics was consulted. REVIEW OF SYSTEMS: CONSTITUTIONAL: Tired. HEENT: None. RESPIRATORY: None. CARDIOVASCULAR: None. GASTROINTESTINAL: Occasional heartburn. GENITOURINARY: None. MUSCULOSKELETAL: As above. DERMATOLOGICAL: Some chronic bruising. HEMATOLOGICAL: As above. LYMPHATICS: None. PSYCHIATRY: Anxiety. NEUROLOGICAL: No focal. PAST MEDICAL HISTORY: Past medical history of atrial fibrillation, CHF, stroke, GERD, hypertension, hyperlipidemia, BPH, coronary artery disease, nonobstructive, AICD, chronic kidney disease stage 4, abdominal aortic aneurysm 5.2 cm, Jenkins's esophagus. PAST SURGICAL HISTORY: AICD, appendectomy, cardiac valve replacement, cholecystectomy, joint replacement, , mitral valve replaced, right eye surgery due to injury, left shoulder replacement, total of 7 bilateral shoulder surgeries, pain clinic procedures, Jenkins's esophagus, EGD, colonoscopy, bilateral cataract removal lens implant. PSYCH HISTORY: Anxiety, depression. SOCIAL HISTORY: Lives with his . Uses a cane and walker. Uses a wheelchair outside the house. The patient smoked a pack a day for 20 years, stopped in 1988. Alcohol none. FAMILY HISTORY: Father had macular degeneration, cancer type unknown. HOME MEDICATIONS: 1. Vitamin D2, 50,000 units every 14 days. 2. Calcitriol 0.5 mcg Sunday, Sunday. 3. Coumadin 1 mg with supper. 4. Flomax 0.4 mg p.o. daily. 5. Prednisone 20 mg b.i.d. 6. Protonix 40 mg p.o. b.i.d. 7. ProAmatine 2.5 mg p.o. t.i.d. 8. Lopressor 12.5 p.o. b.i.d. 9. Methotrexate 5 mg p.o. on Sunday. 10.Magnesium 400 mg mg p.o. daily. 11.[place] 10 one tablet q.i.d. p.r.n. 12.Lasix 20 to 40 mg p.o. daily. 13.Folic acid 1 mg p.o. q.h.s. 14.Aricept 5 mg p.o. q.h.s. 15.Cymbalta 30 mg q.h.s. 16.Tussionex 5 mL q.12 p.r.n. 17.Lipitor 40 mg p.o. daily. 18.Aspirin 81 mg p.o. daily. 19.Allopurinol 100 mg p.o. daily. ALLERGIES: Allergy to FENTANYL, LEVAQUIN, METHADONE, OXYCONTIN. PHYSICAL EXAMINATION: On examination, temperature 96.8, pulse 102, respiration 15, blood pressure 167/79, pulse ox 98% on room air. GENERAL APPEARANCE: Average build, lying in bed, uncomfortable appearing. EYES: Pupil equal. Conjunctivae normal. HENT: External appearance of the ears and nose normal. Oral cavity normal. NECK: JVD unable to assess. Mass not palpable. RESPIRATORY: Effort normal. LUNGS: Slightly decreased breath sounds. CARDIOVASCULAR: First and second sounds normal. No edema. ABDOMEN: Distended, soft. Liver and spleen not palpable. LYMPHATIC: No lymph node palpable of neck and axillae. PSYCHIATRY: Alert and oriented x3. Mood and affect anxious appearing. NEUROLOGICAL: Pupils equal. Cranial nerves grossly intact. Some increase in reflex on the left knee. Movement of the legs is painful because of the back unable to do exam than that. INVESTIGATIONS: White count 12.7, hemoglobin 15.6. INR 4.6. Potassium 4.8. BUN 38, creatinine 1.80. The patient did have a CT scan abdomen and pelvis on 10/18/17 that showed diffuse renal cortical thinning on both the sides, showed abdominal aortic aneurysm 4.9 cm and evidence of DJD and mild compression deformity of L2. ASSESSMENT: 1. This is a patient with L2 kyphoplasty in December of 2016. Now, took a fall about a week ago, increasing lower pain. The patient has some increased reflex on the left knee. The patient is long-standing on prednisone. Definitely the bones likely osteopenic/osteoporotic. Dr. Pelletier from [facility] was consulted. 2. History of atrial fibrillation. 3. Chronic congestive heart failure, EF not known. 4. Gastroesophageal reflux disease. 5. Hyperlipidemia. 6. Essential hypertension. 7. Benign prostatic hypertrophy. 8. Nonobstructive coronary artery disease. 9. Automated implantable cardioverter-defibrillator. 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 11.Abdominal aortic aneurysm, infrarenal, 4.9 cm. 12.Jenkins's esophagus. 13.Gait dysfunction at baseline uses a cane and a walker. PLAN: Dr. Pelletier from [facility] was consulted. Did speak to Gretchen from the team. She is ordering a CT scan. The patient already on prednisone at home, we will increase the dose. The patient is also getting morphine for pain control. Will add baclofen for muscle spasms, will get a heating pad and also use lidocaine patch. Oral prednisone will be given. Prognosis is guarded. Will also consult Dr. Baig for pain management. This is definitely a difficult situation. Did discuss with the family at the bedside. Given limited options. MMODL / IJN: [id number] /
--- NOTE | 2017-10-19 14:38 | CT ---
EXAMINATION TYPE: CT thoracic spine wo con DATE OF EXAM: 10/19/2017 COMPARISON: NONE HISTORY: upper back pain. History of compression fracture. CT DLP: 1364 mGycm Automated exposure control for dose reduction was used. FINDINGS: Osseous structures are somewhat demineralized. There is no acute fracture or dislocation in the thora cic spine. Vertebral body heights and disc space heights are maintained. Alignment is satisfactory an d slightly straightened. There is mild compression type fracture deformity at L2 level with vertebrop lasty in inferior aspect of vertebra, there is sclerosis in the superior aspect of vertebra without l ucency and with cement material extending into L1-L2 disc space. No large posterior disc herniations are seen in the thoracic spine. There is moderate to severe multilevel anterior and lateral spurring in the thoracic spine. Review of axial images show prominent posterior spur disc effacing anterior thecal sac right paracent ral region at C7-T1 level axial image 11 series 4. Remainder of thoracic levels show no large disc he rniation or posterior spur. There is partial visualization of pacemaker wires. There is partial visualization of epicardial defib rillator wires. Sternal wires and mediastinal clips are also partially imaged. Visualized lungs show some chronic parenchymal change. Main pulmonary artery is dilated at 3.8 cm axial image 53. CT findin g suggesting underlying pulmonary artery hypertension. There is partial visualization of cholecystect pablo clips. There is cortical thinning identified in visualized portion of both kidneys. IMPRESSION: NO ACUTE FRACTURE OR DISLOCATION IN THE THORACIC SPINE.
[2017-10-19] MEDS: METOPROLOL TARTRATE 12.5 MG TAB PO SCH ×2 (14:46→21:58)
[2017-10-19] MEDS: TAMSULOSIN 0.4 MG CAP.ER.24H PO SCH (14:46)
[2017-10-19] MEDS: BACLOFEN 10 MG TAB PO SCH ×2 (14:46→16:58)
[2017-10-19] MEDS: PANTOPRAZOLE 40 MG TABLET PO SCH ×2 (14:46→21:58)
[2017-10-19] MEDS: ALLOPURINOL 100 MG TAB PO SCH (14:47)
[2017-10-19] MEDS: ATORVASTATIN 40 MG TAB PO SCH (14:47)
[2017-10-19] MEDS: MAGNESIUM OXIDE 400 MG TAB PO SCH (14:47)
[2017-10-19] MEDS: ASPIRIN 81 MG PO SCH (14:48)
[2017-10-19] MEDS: predniSONE 20 MG TAB PO SCH (14:48)
[2017-10-19] MEDS: LIDOCAINE 5% PATCH TOPICAL SCH (14:55)
[2017-10-19] MEDS: HYDROcodone/APAP 10-325MG 1 EACH TAB PO SCH ×2 (14:56→18:53)
[2017-10-19 20:57] LABS: Glucose,Whole Blood 202 mg/dL (75-99)
[2017-10-19] MEDS ORDERED: DULoxetine HCL 30 MG CAPSULE.DR PO SCH (21:00)
--- NOTE | 2017-10-19 21:33 | P.CONS ---
History of Present Illness - Reason for Consult Consult date: 10/19/17 Back pain Requesting physician: Freddy Salinas - Chief Complaint back pain, inability to walk - History of Present Illness Thank you for allowing me to participate in the care of . Mr Wright is a 77-year-old right-handed male with 4 adult children who lives with his in a two-level home with 3 steps to enter the main bathroom is on the main floor. He requires assistance for ADLs and IADLs and utilizes a walker in the home and states he does not walk much further than from the bedroom to the bathroom. Mr. Wright is well known in our office and has been seen for ongoing evaluation and management of his neck pain and 2 years ago had compression fracture of his L2 and underwent kyphoplasty. At that time his physical examination showed lower extremity weakness. When Mr. Wright is seen in the office he is seen in a wheelchair and today he states he has not really walked in several months. He had presented to the emergency department in the evening several days after his last office appointment of intractable back pain and inability to walk. He states at the time he came to the emergency department he had 10 out of 10 pain in his lower back. He also states he has had some falls recently and the home and his most recent fall was 2-3 days before his pain worsened. He states that at this time his pain is improving 7/10 out of 10 in intensity however he continues to be weak. He also states that prior to this admission he and his are looking into assisted living for him. Review of Systems 10 point review of system was performed and was negative other than indicated in HPI. Past Medical History Past Medical History: Atrial Fibrillation, Heart Failure, CVA/TIA, GERD/Reflux, Hearing Disorder / Deafness, Hyperlipidemia, Hypertension, Prostate Disorder, Renal Disease, Skin Disorder Additional Past Medical History / Comment(s): Coronary artery disease with recent cardiac catheterization showing nonocclusive disease and this was done at [facility], cardiomyopathy with impaired LV function, AICD placement , previous history of TIA, approximately atrial fibrillation, mitral valve replacement, stage IV renal failure, GERD, infrarenal abdominal aortic aneurysm measuring 5.2 cm in size, previous fall, lumbar L2 spine fracture, GERD, prostate enlargement, hypertension, Jenkins's esophagus, 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 , vitamin D deficiency, not cancerous lesion removed from the right nostril, chronic back pain, weight loss, psoriasis History of Any Multi-Drug Resistant Organisms: None Reported Past Surgical History: AICD, Appendectomy, Cardiac Valve Replacement, Cholecystectomy, Joint Replacement, Orthopedic Surgery, Tonsillectomy Additional Past Surgical History / Comment(s): 2006 MITRAL VALVE REPLACED, RIGHT EYE SURGERY D/T INJURY, left shoulder replacement, total of 7 bilateral shoulder surgeries, pain clinic procedures, radio frequency tx for Jenkins's, EGD/colonoscopy, riky cataracts removed with lens implants, AICD, spinal fracture repair Past Anesthesia/Blood Transfusion Reactions: Previous Problems w/ Anesthesia Additional Past Anesthesia/Blood Transfusion Reaction / Comm: confused for 21 days after mitral valve replacement at [facility] in 2006 Type of Cardiac Device: AICD Device Placement Date:: [email or web address] [id number], model [id number] Past Psychological History: Anxiety, Depression Additional Psychological History / Comment(s): Pt resides with his spouse. He uses a cane or walker to ambulate. He drives. Smoking Status: Never smoker Past Alcohol Use History: None Reported Additional Past Alcohol Use History / Comment(s): quit smoking 1988, smoked for about 20 yrs- 1 PPD Past Drug Use History: None Reported - Past Family History Sister(s) Family Medical History: Cancer Father Family Medical History: Congestive Heart Failure (CHF), Eye Disorder, Rheumatoid Arthritis (RA) Additional Family Medical History / Comment(s): Father had macular degeneration. He at the age of 83yrs. Mother Family Medical History: Dementia Additional Family Medical History / Comment(s): Mother at the age of 81yrs. Medications and Allergies Home Medications Medication Instructions Recorded Confirmed Type Folic Acid 1 mg PO HS 11/24/13 10/18/17 History Methotrexate Sodium [Methotrexate] 5 mg PO FR 11/24/13 10/18/17 History Pantoprazole Sodium [Protonix] 40 mg PO BID 11/24/13 10/18/17 History Calcitriol 0.5 mcg PO WEFR 05/29/16 10/18/17 History Donepezil [Aricept] 5 mg PO HS 05/29/16 10/18/17 History Magnesium Oxide 400 mg PO QAM 05/29/16 10/18/17 History Aspirin EC [Ecotrin Low Dose] 81 mg PO QAM 09/09/16 10/18/17 History Metoprolol Tartrate [Lopressor] 12.5 mg PO BID 03/01/17 10/18/17 History Warfarin [Coumadin] 1 mg PO W/SUPPER 03/01/17 10/18/17 History Allopurinol [Zyloprim] 100 mg PO DAILY 05/07/17 10/18/17 History CHLORPHEN-HYDROcod 8-10mg/5ml 5 ml PO Q12HR PRN 05/07/17 10/18/17 History [Tussionex] Furosemide [Lasix] 20 - 40 mg PO DAILY 05/21/17 10/18/17 History Tamsulosin [Flomax] 0.4 mg PO DAILY 05/21/17 10/18/17 History Atorvastatin [Lipitor] 40 mg PO DAILY 09/07/17 10/18/17 History Ergocalciferol [Vitamin D2] 50,000 unit PO Q14D 09/07/17 10/18/17 History Midodrine HCl [ProAmatine] 2.5 mg PO TID 09/07/17 10/18/17 History DULoxetine HCL [Cymbalta] 30 mg PO HS 10/18/17 10/18/17 History HYDROcodone/APAP 10-325MG [[place] 1 tab PO QID PRN 10/18/17 10/18/17 History 10-325] predniSONE 20 mg PO BID #10 tab 10/18/17 10/18/17 Rx Allergies Allergy/AdvReac Type Severity Reaction Status Date / Time fentanyl AdvReac Nausea Verified 10/18/17 22:46 levofloxacin [From Levaquin] AdvReac Hallucinati Verified 10/18/17 22:46 ons methadone [Methadone] AdvReac Nausea Verified 10/18/17 22:46 oxycodone HCl AdvReac Leg Cramps Verified 10/18/17 22:46 [From OxyContin] Physical Exam Osteopathic Statement: *. No significant issues noted on an osteopathic structural exam other than those noted in the History and Physical/Consult. Vitals: Vital Signs Temp Pulse Pulse Resp BP BP BP 10/19/17 15:00 97.4 F L 95 16 165/76 10/19/17 12:53 10/19/17 08:51 98.0 F 92 16 187/81 10/19/17 08:00 16 10/19/17 02:00 97.7 F 98 16 187/96 10/19/17 00:29 96 19 187/94 10/18/17 22:23 96.8 F L 102 H 15 167/79 Pulse Ox 10/19/17 15:00 95 10/19/17 12:53 95 10/19/17 08:51 96 10/19/17 08:00 10/19/17 02:00 97 10/19/17 00:29 97 10/18/17 22:23 98 Intake and Output 10/19/17 10/19/17 10/19/17 06:59 14:59 22:59 Intake Total 236 Output Total 200 Balance -200 236 Intake: Oral 236 Output: Urine 200 Other: Voiding Method Toilet Urinal # Voids 1 1 Weight 92.986 kg 93.18 kg Gen.: Patient is alert and oriented not in acute distress, lying flat in bed HEENT: Normocephalic/atraumatic extraocular muscles intact, left conjunctival injection Respiratory: No accessory muscle use was noted breathing was nonlabored Cardiovascular: Regular rate and rhythm no peripheral edema noted Abdomen: Soft nontender distended Neurologic: Patellar reflexes 3/4 bilaterally, Achilles reflexes 2/4 bilaterally , no ankle clonus was noted, Babinski downgoing bilaterally, sensation to pinprick decreased left L4, right L5 Musculoskeletal examination: Tenderness to palpation over the sacrum bilaterally , hip range of motion normal bilaterally, hip internal rotation causes back pain , hip flexion 3/5 left 4/5 right, knee extension 4/5 bilaterally, ankle dorsiflexion, inversion, eversion and EHL 3/5 bilaterally Results CBC & Chem 7: 10/18/17 23:07 10/18/17 23:07 Labs: Abnormal Lab Results - Last 24 Hours (Table) 10/18/17 10/18/17 10/18/17 Range/Units 23:07 23:07 23:07 WBC 12.7 H (3.8-10.6) k/uL RDW 17.5 H (11.5-15.5) % Neutrophils # 12.1 H (1.3-7.7) k/uL Lymphocytes # 0.3 L (1.0-4.8) k/uL PT 41.7 H (9.0-12.0) sec INR 4.6 H (<1.2) BUN 38 H (9-20) mg/dL Creatinine 1.80 H (0.66-1.25) mg/dL Glucose 234 H (74-99) mg/dL POC Glucose (mg/dL) (75-99) mg/dL AST 72 H (17-59) U/L 10/19/18 Range/Units 20:47 WBC (3.8-10.6) k/uL RDW (11.5-15.5) % Neutrophils # (1.3-7.7) k/uL Lymphocytes # (1.0-4.8) k/uL PT (9.0-12.0) sec INR (<1.2) BUN (9-20) mg/dL Creatinine (0.66-1.25) mg/dL Glucose (74-99) mg/dL POC Glucose (mg/dL) 202 H (75-99) mg/dL AST (17-59) U/L CT scan - abdomen: report reviewed CT scan - pelvis: report reviewed (CT of the thoracic spine reviewed) Assessment and Plan (1) Contusion of bone Current Visit: Yes Status: Acute Code(s): T14.8XXA - OTHER INJURY OF UNSPECIFIED BODY REGION, INITIAL ENCOUNTER SNOMED Code(s): 422563085 (2) Back pain Current Visit: Yes Status: Acute Code(s): M54.9 - DORSALGIA, UNSPECIFIED SNOMED Code(s): 122613625 (3) Bilateral sacroiliitis Current Visit: No Status: Acute Code(s): M46.1 - SACROILIITIS, NOT ELSEWHERE CLASSIFIED SNOMED Code(s): 03281390 (4) Fall Current Visit: No Status: Acute Code(s): W19.XXXA - UNSPECIFIED FALL, INITIAL ENCOUNTER SNOMED Code(s): 5730246 (5) Renal insufficiency Current Visit: No Status: Acute Code(s): N28.9 - DISORDER OF KIDNEY AND URETER, UNSPECIFIED SNOMED Code(s): 672839766 (6) Spinal stenosis of lumbar region Current Visit: Yes Status: Acute Code(s): M48.061 - SPINAL STENOSIS, LUMBAR REGION WITHOUT NEUROGENIC AVI SNOMED Code(s): 51457078 (7) Deconditioned low back Current Visit: Yes Status: Acute Code(s): R29.898 - OTH SYMPTOMS AND SIGNS INVOLVING THE MUSCULOSKELETAL SYSTEM SNOMED Code(s): 069751484 (8) Physical deconditioning Current Visit: Yes Status: Acute Code(s): R53.81 - OTHER MALAISE SNOMED Code(s): 46845859122338 (9) Impaired activities of daily living Current Visit: Yes Status: Acute Code(s): R53.81 - OTHER MALAISE SNOMED Code(s): 467806811 Plan: Discussed with Mr. Wright that he likely has sacroiliitis and possibly sacral bruising from his fall however this does not show up on CT scans and he is not able to have MRI. Discussed with him that his lower extremity weakness is likely related to his low back possibly due to spinal stenosis and the best way to assess that is CT myelogram however with his decreased renal function giving him contrast is not the best idea and even if it showed spinal stenosis he is not a candidate for lumbar decompression and fusion due to his health problems. Discussed with the patient that if he does have sacral bruising it could take 6 weeks to improve. At this time I think it is best for him to continue with the steroids to help control pain and inflammation will change his [place] to Percocet 10/325 every 6 hours as needed. Will discontinue baclofen as it can increase weakness, we'll decrease Norflex as it has unknown mechanism of action. I would like to increase his Cymbalta however due to his renal function and needs to stay at 30 mg daily. Due to his impaired ADLs and IADLs patient is likely a candidate for acute inpatient rehabilitation or subacute rehabilitation with goal of attaining minimal assistance. Patient will require ongoing nursing needs of transfers, medication administration and management, pain control, help with ADLs as he has functional incontinence. He will require ongoing physician supervision for management of his blood pressure, congestive heart failure, steroid-induced hyperglycemia and warfarin. We'll have physical and occupational therapy see the patient to help evaluate for disposition appropriateness. Time with Patient: Greater than 30
[2017-10-19] MEDS: DONEPEZIL 5 MG TAB PO SCH (21:58)
[2017-10-19] MEDS: FOLIC ACID 1 MG TAB PO SCH (21:58)
[2017-10-20] MEDS: SODIUM CHLORIDE 0.9% 1,000 ML IV SCH ×2 (00:14→21:33)
[2017-10-20] MEDS: oxyCODONE-APAP 10-325MG 1 EACH TAB PO PRN ×2 (06:20→17:52)
[2017-10-20 07:22] LABS: INR 4.5 (<1.2); Prothrombin Time 40.5 sec (9.0-12.0)
[2017-10-20] MEDS: ASPIRIN 81 MG PO SCH (09:26)
[2017-10-20] MEDS: PANTOPRAZOLE 40 MG TABLET PO SCH ×2 (09:27→19:35)
[2017-10-20] MEDS: predniSONE 20 MG TAB PO SCH (09:27)
[2017-10-20] MEDS: ALLOPURINOL 100 MG TAB PO SCH (09:27)
[2017-10-20] MEDS: METOPROLOL TARTRATE 12.5 MG TAB PO SCH ×2 (09:27→19:36)
[2017-10-20] MEDS: TAMSULOSIN 0.4 MG CAP.ER.24H PO SCH (09:27)
[2017-10-20] MEDS: DULoxetine HCL 30 MG CAPSULE.DR PO SCH (09:27)
[2017-10-20] MEDS: MAGNESIUM OXIDE 400 MG TAB PO SCH (09:27)
[2017-10-20 09:44] LABS: Appearance,Urine Clear (Clear); Bilirubin,Urine Negative (Negative); Blood,Urine Negative (Negative); Color,Urine Yellow; Glucose,Urine (UA) Negative (Negative); Ketones,Urine Negative (Negative); Leukocyte Esterase,Urine Negative (Negative); Nitrite,Urine Negative (Negative); PH, Urine 5.5 (5.0-8.0); Protein,Urine Trace (Negative); Specific Gravity,Urine 1.018 (1.001-1.035); Urobilinogen,Urine <2.0 mg/dL (<2.0)
[2017-10-20] MEDS: LORazepam 0.5 MG TAB PO PRN (09:47)
[2017-10-20] MEDS: LIDOCAINE 5% PATCH TOPICAL SCH (09:48)
[2017-10-20] MEDS: MORPHINE SULFATE/PF 10MG/10ML VL IV PRN ×3 (13:00→19:31)
--- NOTE | 2017-10-20 14:44 | PN ---
PROGRESS NOTE DATE OF SERVICE: 10/20/17 PRESENTING COMPLAINT: Low back pain. INTERVAL HISTORY: The patient presented with acute low back pain secondary to fall. CT scan did not show any fracture. The patient ate a very small amount. Has been pretty restless. Patient getting IV morphine, steroids, Fleming, baclofen, heating pads. Still pain is not controlled. The patient is seen by Dr. Campbell from Pain Management who did address the patient's pain medications. REVIEW OF SYSTEMS: Done for constitutional, cardiovascular, GI, pulmonary and relevant findings as above. The patient has not had a bowel movement. CURRENT MEDICATIONS: Reviewed that include Cymbalta 30 mg a day, Lidoderm patch, IV morphine, Percocet 10. PHYSICAL EXAMINATION: Afebrile, pulse, respirations 16, blood pressure 144/80. Pulse ox 95% on room air. General appearance: Lying in bed, tired appearing. Eyes pupils are equal. Conjunctivae normal. HEENT external appearance of nose and ears normal. Oral cavity normal. Neck JVD unable to assess. Mass not palpable. Respiratory effort normal. LUNGS: Diminished breath sounds. Cardiovascular 1st and 2nd sounds normal. No edema. Abdomen distended, soft. Liver and spleen not palpable. Bowel sounds present. Psychiatry tired appearing but answering questions appropriately. Neurological: Limited range of motion to both legs because of pain. INVESTIGATIONS: INR 4.5. ASSESSMENT: 1. Acute low back pain from blunt injury. No evidence of fracture. Patient is pretty much on bed rest. Groans every time he moves. Pain Management Dr. Campbell did see the patient. 2. History of atrial fibrillation. 3. Chronic congestive heart failure, ejection fraction not known. 4. Gastroesophageal reflux disease. 5. Hyperlipidemia. 6. Essential hypertension. 7. Benign prostatic hypertrophy. 8. Nonobstructive coronary artery disease. 9. AICD. 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 11.Abdominal aortic aneurysm infrarenal 4.9 cm. 12.Jenkins's esophagus. 13.Gait dysfunction at baseline uses a cane and a walker. PLAN: Patient is definitely much worse from baseline. CT scan did not turkey picker any obvious fracture, but cannot rule out the same. Per Orthopedics no further intervention to be done right now. We will hold off patient's Coumadin for right now. Pain management to continue per Dr. Campbell. Did speak to the patient's son and daughter at the bedside. Options are somewhat limited. Follow. MMODL / IJN: [id number] /
[2017-10-20] MEDS ORDERED: MAGNESIUM CITRATE 296 ML BOTTLE PO STA (16:01)
[2017-10-20] MEDS: ATORVASTATIN 40 MG TAB PO SCH (18:11)
[2017-10-20] MEDS: DONEPEZIL 5 MG TAB PO SCH (19:35)
[2017-10-20] MEDS: FOLIC ACID 1 MG TAB PO SCH (19:35)
[2017-10-21] MEDS: MORPHINE SULFATE/PF 10MG/10ML VL IV PRN ×2 (00:36→06:44)
[2017-10-21 07:16] LABS: INR 2.9 (<1.2); Prothrombin Time 26.3 sec (9.0-12.0)
[2017-10-21] MEDS ORDERED: MORPHINE SULF 5MG/10ML VL IV PRN (07:33)
[2017-10-21] MEDS: PANTOPRAZOLE 40 MG TABLET PO SCH ×2 (09:05→20:04)
[2017-10-21] MEDS: TAMSULOSIN 0.4 MG CAP.ER.24H PO SCH (09:05)
[2017-10-21] MEDS: MAGNESIUM OXIDE 400 MG TAB PO SCH (09:05)
[2017-10-21] MEDS: ATORVASTATIN 40 MG TAB PO SCH (09:05)
[2017-10-21] MEDS: ALLOPURINOL 100 MG TAB PO SCH (09:05)
[2017-10-21] MEDS: METOPROLOL TARTRATE 12.5 MG TAB PO SCH ×2 (09:05→20:04)
[2017-10-21] MEDS: LIDOCAINE 5% PATCH TOPICAL SCH (09:05)
[2017-10-21] MEDS: DULoxetine HCL 30 MG CAPSULE.DR PO SCH (09:05)
[2017-10-21] MEDS: ASPIRIN 81 MG PO SCH (09:05)
[2017-10-21] MEDS: predniSONE 20 MG TAB PO SCH (09:07)
--- NOTE | 2017-10-21 13:12 | P.PN ---
Subjective Progress Note Date: 10/21/17 Principal diagnosis: back pain Mr. Wright is seen today for reevaluation of his low back pain, he has been receiving Percocet every 6 hours and I started a fentanyl patch last night. He and nursing staff was present at the encounter state that the pain is intermittent, worse with movement passive or active. Therapy did come and see the patient but he did not tolerate much due to pain. Overall staff states that so far today he appears to have better pain control than yesterday. He has yet to have a bowel movement this admission. Objective - Vital Signs Vital signs: Vital Signs Temp 97.3 F L 10/21/17 09:01 Pulse 84 10/21/17 09:01 Resp 16 10/21/17 09:01 BP 177/89 10/21/17 09:01 Pulse Ox 96 10/21/17 09:01 Intake & Output 10/20/17 10/21/17 10/21/17 18:59 06:59 18:59 Intake Total 160 420 Output Total 1600 Balance -1440 420 Intake: Intake, IV Titration 160 320 Amount Sodium Chloride 0.9% 1, 160 320 000 ml @ 20 mls/hr IV . Q24H MARIA GUADALUPE Rx#:[id number] Other 100 Output: Urine 1600 Other: Voiding Method Urinal Urinal # Voids 5 3 - Exam Gen.: Patient is alert and oriented not in acute distress, lying flat in bed HEENT: Normocephalic/atraumatic extraocular muscles intact, left conjunctival injection Respiratory: No accessory muscle use was noted breathing was nonlabored Cardiovascular: Regular rate and rhythm no peripheral edema noted Abdomen: Soft nontender distended Neurologic: Patellar reflexes 3/4 bilaterally, Achilles reflexes 2/4 bilaterally , no ankle clonus was noted, Babinski downgoing bilaterally, sensation to pinprick decreased left L4, right L5 Musculoskeletal examination: Tenderness to palpation over the sacrum bilaterally , hip range of motion normal bilaterally, hip internal rotation causes back pain , hip flexion 3/5 left 4/5 right, knee extension 4/5 bilaterally, ankle dorsiflexion, inversion, eversion and EHL 3/5 bilaterally - Labs CBC & Chem 7: 10/18/17 23:07 10/18/17 23:07 Labs: Abnormal Lab Results - Last 24 Hours (Table) 10/21/17 Range/Units 06:15 PT 26.3 H (9.0-12.0) sec INR 2.9 H (<1.2) Assessment and Plan (1) Contusion of bone Current Visit: Yes Status: Acute Code(s): T14.8XXA - OTHER INJURY OF UNSPECIFIED BODY REGION, INITIAL ENCOUNTER SNOMED Code(s): 748603533 (2) Back pain Current Visit: Yes Status: Acute Code(s): M54.9 - DORSALGIA, UNSPECIFIED SNOMED Code(s): 478531963 (3) Bilateral sacroiliitis Current Visit: No Status: Acute Code(s): M46.1 - SACROILIITIS, NOT ELSEWHERE CLASSIFIED SNOMED Code(s): 79936352 (4) Fall Current Visit: No Status: Acute Code(s): W19.XXXA - UNSPECIFIED FALL, INITIAL ENCOUNTER SNOMED Code(s): 6517379 (5) Renal insufficiency Current Visit: No Status: Acute Code(s): N28.9 - DISORDER OF KIDNEY AND URETER, UNSPECIFIED SNOMED Code(s): 908097544 (6) Spinal stenosis of lumbar region Current Visit: Yes Status: Acute Code(s): M48.061 - SPINAL STENOSIS, LUMBAR REGION WITHOUT NEUROGENIC AVI SNOMED Code(s): 18537006 (7) Deconditioned low back Current Visit: Yes Status: Acute Code(s): R29.898 - OTH SYMPTOMS AND SIGNS INVOLVING THE MUSCULOSKELETAL SYSTEM SNOMED Code(s): 432601878 (8) Physical deconditioning Current Visit: Yes Status: Acute Code(s): R53.81 - OTHER MALAISE SNOMED Code(s): 91932103731128 (9) Impaired activities of daily living Current Visit: Yes Status: Acute Code(s): R53.81 - OTHER MALAISE SNOMED Code(s): 536107348 Plan: At today's visit discussed with the patient and his family that we cannot utilize NSAIDs due to his renal function and I'm unable to increase his Cymbalta also due to his renal function. Discussed that I added the fentanyl patch last night because it will allow us the fastest titration as opposed to methadone which I could only increase the dose every 3 days. We discussed discharge disposition likely to a facility with subacute rehab that can be transitioned to assisted living. Will increase his fentanyl patch to 25 g at the 24-hour dirk to see if this helps improve his pain. Discussed with the patient that this will improve overall with time and that despite the pain no tissue damage or musculoskeletal damage is occurring. Time with Patient: Greater than 30
[2017-10-21] MEDS: oxyCODONE-APAP 10-325MG 1 EACH TAB PO PRN (15:52)
[2017-10-21] MEDS: WARFARIN 1 MG TAB PO SCH (17:11)
[2017-10-21] MEDS: LORazepam 0.5 MG TAB PO PRN ×2 (17:12→23:55)
[2017-10-21] MEDS ORDERED: WARFARIN 1 MG TAB PO SCH (17:30)
--- NOTE | 2017-10-21 17:48 | PN ---
PROGRESS NOTE DATE OF SERVICE: 10/21/17. PRESENTING COMPLAINT: Low back pain. INTERVAL HISTORY: This patient presented with acute low back pain. Fracture was ruled out. Consultation is done to Dr. Baig from Pain Management and Dr. Campbell from [facility]. The patient is resting in bed, appears more comfortable, but when asked he says he is in a lot of pain. The patient had ordered enema yesterday, unclear if he really received having the nurse check into the same. The patient is eating small amounts of food. Has not really been out of bed. REVIEW OF SYSTEMS: Done for constitutional, cardiovascular, GI, pulmonary; relevant findings as above. CURRENT MEDICATIONS: Reviewed that include Duragesic patch 37, Lidoderm patch, morphine IV q.4h p.r.n., Percocet 10 oral prednisone. PHYSICAL EXAMINATION: Temperature 97.3, pulse 84, respirations 16, blood pressure 177/89, pulse ox 96% on room air. GENERAL APPEARANCE: Lying in bed, awake. Appears comfortable. EYES: Pupils equal. Conjunctivae normal. HEENT: External nose and ears normal. Oral cavity normal. NECK: JVD unable to assess. Mass not palpable. RESPIRATORY: Effort normal. Lungs, decreased breath sounds. CARDIOVASCULAR: First and second sounds normal. No edema. ABDOMEN: Distended, soft. Liver and spleen not palpable. Bowel sounds present. PSYCHIATRY: Awake, alert x3. Mood and affect normal. NEUROLOGICAL: Limited range of motion lower extremity. INVESTIGATIONS: INR 2.9. ASSESSMENT: 1. Acute low-back from blunt injury. No evidence of fracture per CT scan. Pain medications per Dr. Campbell and Dr. Baig. 2. History of atrial fibrillation. 3. Chronic congestive heart failure, ejection fraction not known. 4. Gastroesophageal reflux disease. 5. Hyperlipidemia. 6. Essential hypertension. 7. Benign prostatic hypertrophy. 8. Nonobstructive coronary artery disease. 9. AICD. 10.Chronic kidney disease stage IV from nephrosclerosis. 11.Abdominal aortic aneurysm, 4.9 cm. 12.Jenkins's esophagus. 13.Gait dysfunction, at baseline uses a cane and a walker. PLAN: Spoke to patient's son and , explained that the patient is on a rather hefty dose of pain medications and I am concerned of the heavy dose and we do understand it has been a long time and concern of side effects too including constipation. We have to get the patient a bit mobile. Will follow with the Pain Management team. In the meantime, look into patient to go to rehab if he participates with physical therapy. VINCENT / DALE: [id number] /
[2017-10-21] MEDS: FOLIC ACID 1 MG TAB PO SCH (20:04)
[2017-10-21] MEDS: DONEPEZIL 5 MG TAB PO SCH (20:04)
[2017-10-22] MEDS: SODIUM CHLORIDE 0.9% 1,000 ML IV SCH ×2 (00:33→22:36)
[2017-10-22 06:54] LABS: Prothrombin Time 26.7 sec (9.0-12.0)
[2017-10-22] MEDS: oxyCODONE-APAP 10-325MG 1 EACH TAB PO PRN ×2 (07:52→14:05)
[2017-10-22] MEDS: LIDOCAINE 5% PATCH TOPICAL SCH (08:35)
[2017-10-22] MEDS: ASPIRIN 81 MG PO SCH (08:36)
[2017-10-22] MEDS: METOPROLOL TARTRATE 12.5 MG TAB PO SCH ×2 (08:36→20:33)
[2017-10-22] MEDS: predniSONE 20 MG TAB PO SCH (08:36)
[2017-10-22] MEDS: PANTOPRAZOLE 40 MG TABLET PO SCH ×2 (08:36→20:33)
[2017-10-22] MEDS: DULoxetine HCL 30 MG CAPSULE.DR PO SCH (08:36)
[2017-10-22] MEDS: ALLOPURINOL 100 MG TAB PO SCH (08:36)
[2017-10-22] MEDS: MAGNESIUM OXIDE 400 MG TAB PO SCH (08:36)
[2017-10-22] MEDS: TAMSULOSIN 0.4 MG CAP.ER.24H PO SCH (08:36)
[2017-10-22] MEDS: ATORVASTATIN 40 MG TAB PO SCH (08:36)
[2017-10-22] MEDS: WARFARIN 1 MG TAB PO SCH (17:50)
--- NOTE | 2017-10-22 17:58 | PN ---
PROGRESS NOTE DATE OF SERVICE: 10/22/2017 PRESENTING COMPLAINT: Low back pain. INTERVAL HISTORY: This patient presented with acute low back pain. He is being followed by pain management team. Patient did respond well to laxative; had multiple bowel movements. The patient appears to be more comfortable but says he is in a lot of pain. Rather comfortable. Daughter at the bedside. REVIEW OF SYSTEMS: Done for constitutional, cardiovascular, GI, pulmonary; relevant findings as above. He is eating some. PHYSICAL EXAMINATION: Temperature 97.7, pulse 104, respiration 18, blood pressure 157/84, pulse ox 95% on room air. GENERAL APPEARANCE: Lying in bed, comfortable. EYES: Pupils equal. Conjunctivae normal. HEENT: External appearance of nose and ears normal. Oral cavity normal. NECK: JVD unable to assess. Mass not palpable. RESPIRATORY: Effort normal. LUNGS: Decreased breath sounds. CARDIOVASCULAR: First and second sounds normal. No edema. ABDOMEN: Soft, nontender. Liver and spleen not palpable. PSYCHIATRY: Alert and oriented x3. Mood and affect normal. NEUROLOGICAL: Patient known to get up, sit up. INVESTIGATIONS: INR 3.0. ASSESSMENT: 1. Acute low back pain from blunt injury. No evidence of fracture per CT scan. Pain Management on the case. 2. History of atrial fibrillation. 3. Chronic congestive heart failure; ejection fraction not known. 4. Gastroesophageal reflux disease. 5. Hyperlipidemia. 6. Essential hypertension. 7. Benign prostatic hypertrophy. 8. Non-obstructive coronary artery disease. 9. Automated implantable cardioverter defibrillator. 10.Chronic kidney disease, stage IV, from nephrosclerosis. 11.Abdominal aortic aneurysm 4.9 cm. 12.Jenkins's esophagus. 13.Gait dysfunction at baseline; uses a cane and a walker. PLAN: Waiting for patient to go to inpatient rehab. Pain management per Pain Services. Patient responded well to laxatives. MMODL / IJN: [id number] /
--- NOTE | 2017-10-22 20:17 | P.PN ---
Subjective Progress Note Date: 10/22/17 Principal diagnosis: back pain SPOKE WITH NURSING WHO STATES THAT DR MURILLO CHANGED PATIENT'S MEDS. Objective - Vital Signs Vital signs: Vital Signs Temp 97.6 F 10/22/17 15:00 Pulse 100 10/22/17 15:00 Resp 18 10/22/17 15:00 BP 139/75 10/22/17 15:00 Pulse Ox 97 10/22/17 15:00 Intake & Output 10/22/17 10/22/17 10/23/17 06:59 18:59 06:59 Intake Total 1194 500 Output Total 200 Balance 994 500 Weight 98 kg Intake: Intake, IV Titration 804 Amount Sodium Chloride 0.9% 1, 804 000 ml @ 20 mls/hr IV . Q24H [facility] Rx#:[id number] Oral 390 500 Output: Urine 200 Other: Voiding Method Urinal Urinal Incontinent # Voids 4 2 # Bowel Movements 3 - Exam PT NOT EXAMINED - Labs CBC & Chem 7: 10/18/17 23:07 10/18/17 23:07 Labs: Abnormal Lab Results - Last 24 Hours (Table) 10/22/17 Range/Units 06:29 PT 26.7 H (9.0-12.0) sec INR 3.0 H (<1.2) Assessment and Plan (1) Contusion of bone Current Visit: Yes Status: Acute Code(s): T14.8XXA - OTHER INJURY OF UNSPECIFIED BODY REGION, INITIAL ENCOUNTER SNOMED Code(s): 352486812 (2) Back pain Current Visit: Yes Status: Acute Code(s): M54.9 - DORSALGIA, UNSPECIFIED SNOMED Code(s): 230131573 (3) Bilateral sacroiliitis Current Visit: No Status: Acute Code(s): M46.1 - SACROILIITIS, NOT ELSEWHERE CLASSIFIED SNOMED Code(s): 32422557 (4) Fall Current Visit: No Status: Acute Code(s): W19.XXXA - UNSPECIFIED FALL, INITIAL ENCOUNTER SNOMED Code(s): 4333996 (5) Renal insufficiency Current Visit: No Status: Acute Code(s): N28.9 - DISORDER OF KIDNEY AND URETER, UNSPECIFIED SNOMED Code(s): 323763434 (6) Spinal stenosis of lumbar region Current Visit: Yes Status: Acute Code(s): M48.061 - SPINAL STENOSIS, LUMBAR REGION WITHOUT NEUROGENIC AVI SNOMED Code(s): 40794316 (7) Deconditioned low back Current Visit: Yes Status: Acute Code(s): R29.898 - OTH SYMPTOMS AND SIGNS INVOLVING THE MUSCULOSKELETAL SYSTEM SNOMED Code(s): 899474485 (8) Physical deconditioning Current Visit: Yes Status: Acute Code(s): R53.81 - OTHER MALAISE SNOMED Code(s): 40947980736469 (9) Impaired activities of daily living Current Visit: Yes Status: Acute Code(s): R53.81 - OTHER MALAISE SNOMED Code(s): 634593995 Plan: WILL SIGN OFF. ACCORDING TO STAFF PATIENT IS NOW CONFUSED. I FIND IT INAPPROPRIATE THAT DR PICKARD IS SUDDENLY INVOLVED IN PATIENT CARE, HAS NOT COMPLETED ANY DOCUMENTATION AND IS CHANGING PATIENT'S MEDICATION REGIMEN WITHOUT DOCUMENTATION. HAVING 2 PHYSICIANS MANAGING OPIATE MEDICATIONS AND "PLAYING A POLITICAL TUG OF WAR" JEOPARDIZES PATIENT SAFETY AND I WILL NOT PARTICIPATE IN SUCH BEHAVIOR. AN APPROPRIATE RESPONSE FROM DR MURILLO WOULD HAVE BEEN TO SCHEDULE PROCEDURAL INTERVENTION OF CAUDAL EPIDURAL WITH SI JOINT INJECTION WHILE INPATIENT SINCE ONLY HE CAN.
[2017-10-22] MEDS: HYDROmorphone 2 MG TAB PO PRN ×2 (20:31→22:36)
[2017-10-22] MEDS: DONEPEZIL 5 MG TAB PO SCH (20:33)
[2017-10-22] MEDS: FOLIC ACID 1 MG TAB PO SCH (20:33)
[2017-10-23] MEDS: HYDROmorphone 2 MG TAB PO PRN ×2 (01:54→06:07)
[2017-10-23 09:04] LABS: INR 2.5 (<1.2)
[2017-10-23 09:05] LABS: Prothrombin Time 22.5 sec (9.0-12.0)
[2017-10-23] MEDS: LIDOCAINE 5% PATCH TOPICAL SCH (09:18)
[2017-10-23] MEDS: ALLOPURINOL 100 MG TAB PO SCH (09:25)
[2017-10-23] MEDS: ASPIRIN 81 MG PO SCH (09:25)
[2017-10-23] MEDS: METOPROLOL TARTRATE 12.5 MG TAB PO SCH ×2 (09:25→21:48)
[2017-10-23] MEDS: predniSONE 20 MG TAB PO SCH (09:25)
[2017-10-23] MEDS: DULoxetine HCL 30 MG CAPSULE.DR PO SCH (09:25)
[2017-10-23] MEDS: MAGNESIUM OXIDE 400 MG TAB PO SCH (09:25)
[2017-10-23] MEDS: ATORVASTATIN 40 MG TAB PO SCH (09:25)
[2017-10-23] MEDS: TAMSULOSIN 0.4 MG CAP.ER.24H PO SCH (09:25)
[2017-10-23] MEDS: PANTOPRAZOLE 40 MG TABLET PO SCH ×2 (09:26→21:48)
--- NOTE | 2017-10-23 16:45 | P.CONS ---
History of Present Illness - Reason for Consult Consult date: 10/23/17 - History of Present Illness This 77 years old male with a chronic history of severe neck pain diagnosed with cervical spondylosis, and severe low back pain secondary to compression fracture of the lumbar spine at L2 and also lumbar degenerative disc disease, and sacroiliitis, patient had kyphoplasty at L2 done a year ago, she was admitted to [facility], because of intractable severe low back pain, patient was seen yesterday I was not able to do a full examination because patient was not cooperative, even though his and his son tried to help to make the patient cooperative to do the full examination. The patient was slightly confused, even though he was alert, patient was on fentanyl patch 25 g, and Percocet 10/325 every 6 hours , according to the family, patient was asking for breakthrough pain medication(Percocet 10/235 ) and every time he was giving the breakthrough pain medication, he goes to sleep, and then he wake up again asking for pain medication, for this reason , I discontinued the breakthrough pain medication (the Percocet 10/325 ) and I started patient on Dilaudid 2 mg , and The fentanyl patch 25 mcg, to 72 hours , , today in the morning and he visited the patient, patient was sleepy, and he was arousable, his pupil pinpoint, his vital signs were stable, for this reason I ordered to decrease his fentanyl patch to 12 g every 72 hours, to avoid any opioid overdose Past Medical History Past Medical History: Atrial Fibrillation, Heart Failure, CVA/TIA, GERD/Reflux, Hearing Disorder / Deafness, Hyperlipidemia, Hypertension, Prostate Disorder, Renal Disease, Skin Disorder Additional Past Medical History / Comment(s): Coronary artery disease with recent cardiac catheterization showing nonocclusive disease and this was done at [facility], cardiomyopathy with impaired LV function, AICD placement , previous history of TIA, approximately atrial fibrillation, mitral valve replacement, stage IV renal failure, GERD, infrarenal abdominal aortic aneurysm measuring 5.2 cm in size, previous fall, lumbar L2 spine fracture, GERD, prostate enlargement, hypertension, Jenkins's esophagus, 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 , vitamin D deficiency, not cancerous lesion removed from the right nostril, chronic back pain, weight loss, psoriasis History of Any Multi-Drug Resistant Organisms: None Reported Past Surgical History: AICD, Appendectomy, Cardiac Valve Replacement, Cholecystectomy, Joint Replacement, Orthopedic Surgery, Tonsillectomy Additional Past Surgical History / Comment(s): 2006 MITRAL VALVE REPLACED, RIGHT EYE SURGERY D/T INJURY, left shoulder replacement, total of 7 bilateral shoulder surgeries, pain clinic procedures, radio frequency tx for Jenkins's, EGD/colonoscopy, riky cataracts removed with lens implants, AICD, spinal fracture repair Past Anesthesia/Blood Transfusion Reactions: Previous Problems w/ Anesthesia Additional Past Anesthesia/Blood Transfusion Reaction / Comm: confused for 21 days after mitral valve replacement at [facility] in 2006 Type of Cardiac Device: AICD Device Placement Date:: 2014.[employer]-serial [id number], model [id number] Past Psychological History: Anxiety, Depression Additional Psychological History / Comment(s): Pt resides with his spouse. He uses a cane or walker to ambulate. He drives. Smoking Status: Never smoker Past Alcohol Use History: None Reported Additional Past Alcohol Use History / Comment(s): quit smoking 1988, smoked for about 20 yrs- 1 PPD Past Drug Use History: None Reported - Past Family History Sister(s) Family Medical History: Cancer Father Family Medical History: Congestive Heart Failure (CHF), Eye Disorder, Rheumatoid Arthritis (RA) Additional Family Medical History / Comment(s): Father had macular degeneration. He at the age of 83yrs. Mother Family Medical History: Dementia Additional Family Medical History / Comment(s): Mother at the age of 81yrs. Medications and Allergies Home Medications Medication Instructions Recorded Confirmed Type Folic Acid 1 mg PO HS 11/24/13 10/18/17 History Methotrexate Sodium [Methotrexate] 5 mg PO FR 11/24/13 10/18/17 History Pantoprazole Sodium [Protonix] 40 mg PO BID 11/24/13 10/18/17 History Calcitriol 0.5 mcg PO WEFR 05/29/16 10/18/17 History Donepezil [Aricept] 5 mg PO HS 05/29/16 10/18/17 History Magnesium Oxide 400 mg PO QAM 05/29/16 10/18/17 History Aspirin EC [Ecotrin Low Dose] 81 mg PO QAM 09/09/16 10/18/17 History Metoprolol Tartrate [Lopressor] 12.5 mg PO BID 03/01/17 10/18/17 History Warfarin [Coumadin] 1 mg PO W/SUPPER 03/01/17 10/18/17 History Allopurinol [Zyloprim] 100 mg PO DAILY 05/07/17 10/18/17 History CHLORPHEN-HYDROcod 8-10mg/5ml 5 ml PO Q12HR PRN 05/07/17 10/18/17 History [Tussionex] Furosemide [Lasix] 20 - 40 mg PO DAILY 05/21/17 10/18/17 History Tamsulosin [Flomax] 0.4 mg PO DAILY 05/21/17 10/18/17 History Atorvastatin [Lipitor] 40 mg PO DAILY 09/07/17 10/18/17 History Ergocalciferol [Vitamin D2] 50,000 unit PO Q14D 09/07/17 10/18/17 History Midodrine HCl [ProAmatine] 2.5 mg PO TID 09/07/17 10/18/17 History DULoxetine HCL [Cymbalta] 30 mg PO HS 10/18/17 10/18/17 History HYDROcodone/APAP 10-325MG [[place] 1 tab PO QID PRN 10/18/17 10/18/17 History 10-325] predniSONE 20 mg PO BID #10 tab 10/18/17 10/18/17 Rx Allergies Allergy/AdvReac Type Severity Reaction Status Date / Time fentanyl AdvReac Nausea Verified 10/18/17 22:46 levofloxacin [From Levaquin] AdvReac Hallucinati Verified 10/18/17 22:46 ons methadone [Methadone] AdvReac Nausea Verified 10/18/17 22:46 oxycodone HCl AdvReac Leg Cramps Verified 10/18/17 22:46 [From OxyContin] Physical Exam Vitals: Vital Signs Temp Pulse Resp BP Pulse Ox 10/23/17 15:00 97.4 F L 89 15 145/73 96 10/23/17 07:00 97.5 F L 94 16 158/69 99 10/23/17 02:03 98.1 F 94 16 159/78 99 10/22/17 20:00 98.4 F 66 20 164/80 94 L Intake and Output 10/23/17 10/23/17 10/23/17 06:59 14:59 22:59 Other: Voiding Method Incontinent # Voids 1 2 # Bowel Movements 1 2 Physical Examinations : 1-Constitutiona : Cooperative , not in acute distress , alert and oriented. 2-HEENT : nech ; supple , no Lymphadenopathy , normal thyroid size . eyes : no ptosis , no icterus, no photophobia . ENT : normal of hearing , normal oropharynx , no Thrush . 3- Respiratory : Chest clear to auscultations Bilaterally , no wheezing , no Rhonchi . 4- Cardiovascular : regular rate and rhythem , S1 , S2 , no S3 , no S4. 5- Gastrointestinal : abdomen soft no tenderness , bowel sounds positive all four quadrents , no organomegally . 6- Genitourinary : Defferred . 7- neurologic : Cranial nerve II to XII intact , no focal neurological deffecit . 8-psychatric : alert , oriented X 3 , appropriate affect , intact judgment and insight . 9-Lymphatic : no Lymphadenopathy . 10- musculoskeltal : cervical spine = motor stregnth in the deltoid and biceps, motor stregnth biceps and the wrist extensors (C6) . motor stregnth in the triceps muscle . deep tendon reflexes normal at the biceps , normal at Brachioradialis , normal at the Triceps positive cervical facet loading test . , Lumber spine = normal moter stegnth lower extremities ,thigh and legs .3-4/5 deep tendon reflexes : decreased Knee Jerk , decreased ankle Jerk . lumber facet Loading Test positive strait leg raising test positive at 30 degree Right , positve at 30 degree Left Fabere test positive Right and positive Left Sever tenderness over the Sacroiliac joint on the Right , and Left side Generalized tenderness over the lumbar spine Results CBC & Chem 7: 10/18/17 23:07 10/18/17 23:07 Labs: Abnormal Lab Results - Last 24 Hours (Table) 10/23/17 Range/Units 08:23 PT 22.5 H (9.0-12.0) sec INR 2.5 H (<1.2) Assessment and Plan Plan: Assessment and plan= bilateral sacroiliitis , spinal stenosis, lumbar degenerative disc disease, contusion of the bone. Patient currently not candidate for interventional pain management because he is being on Coumadin, and we have to stop the Coumadin for 5 days before we can do any interventional pain procedures , patient currently on fentanyl patch, and is showing signs of overdose (PinPoint pupils ) , I decreased the fentanyl patch to 12 g ( he was on 25 micrograms ) I will continue Dilaudid 2 mg for breakthrough pain , treatment plan, discussed with the family ( )
[2017-10-23] MEDS: WARFARIN 1 MG TAB PO SCH (17:54)
[2017-10-23] MEDS: MORPHINE ORAL SOLN 10 MG/5 ML CUP PO PRN (21:37)
[2017-10-23] MEDS: DONEPEZIL 5 MG TAB PO SCH (21:48)
[2017-10-23] MEDS: FOLIC ACID 1 MG TAB PO SCH (21:48)
--- NOTE | 2017-10-23 21:56 | PN ---
PROGRESS NOTE OF SERVICE: October 23, 2017. PRESENTING COMPLAINT: Lethargic. INTERVAL HISTORY: This is a patient presented with acute low back pain. He has been followed by Pain Services. at the bedside. I saw her this morning. The patient has been rather sleepy and just about arousable. did mention about hospice depending on how he does. REVIEW OF SYSTEMS: Cannot be done. The patient is very lethargic. CURRENT MEDICATIONS: Current medications reviewed. PHYSICAL EXAMINATION: Temperature 97.5, pulse 94, respiration 16, blood pressure 158/69, pulse ox 99% on 2 L. General appearance: Lying in bed, lethargic, barely arousable. Eyes pupils pinpoint. Conjunctivae normal. HEENT: External appearance of nose and ears normal. Oral cavity unable to assess. Neck JVD unable to assess. Mass not palpable. Respiratory effort. LUNGS: Diminished breath sounds. Cardiovascular: 1st and 2nd sounds normal. No edema. ABDOMEN: Soft, nontender. Liver and spleen not palpable. Psychiatry: The patient is very lethargic. Barely arousable. Neurological cannot assess. INVESTIGATIONS: INR 2.5. ASSESSMENT: 1. Acute low back pain from injury. No evidence of fracture per CT scan. 2. History of atrial fibrillation. 3. Chronic congestive heart failure, ejection fraction not known. 4. Gastroesophageal reflux disease. 5. Hyperlipidemia. 6. Essential hypertension. 7. Benign prostatic hypertrophy. 8. Nonobstructive coronary artery disease. 9. AICD. 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 11.Abdominal aortic aneurysm 4.9 cm. 12.Jenkins's esophagus. 13.Gait dysfunction at baseline uses a cane and a walker. 14.Pinpoint pupils from opioids. PLANS: Dr. Baig from Pain Management spoke to me. He is going to back off on the fentanyl patch. I spoke to the and leading towards hospice. I said that the patient first come around and let us see how he does and then will go from there tomorrow. In the evening, I spoke to the nurse on the floor. The patient by the evening had woken up and actually ate some food with assistance. Pretty much remained in bed. Total time spent today was about 45 minutes with over 25-30 minutes of discussion. Also made a call to Dr. Ibarra from administration, regards of some administrative insight. MMODL / IJN: [id number] /
[2017-10-24] MEDS: SODIUM CHLORIDE 0.9% 1,000 ML IV SCH ×2 (01:08→22:17)
[2017-10-24] MEDS: MORPHINE ORAL SOLN 10 MG/5 ML CUP PO PRN ×2 (01:55→08:25)
[2017-10-24 07:11] LABS: Anisocytosis Slight; Basophils % (A) 0 %; Eosinophils # (A) 0.1 k/uL (0-0.7); Eosinophils % (A) 1 %; HCT 45.1 % (39.0-53.0); HGB 14.2 gm/dL (13.0-17.5); Lymphocytes # (A) 0.8 k/uL (1.0-4.8); Lymphocytes % (A) 5 %; MCH 29.8 pg (25.0-35.0); MCHC 31.5 g/dL (31.0-37.0); MCV 94.7 fL (80.0-100.0); Mean Platelet Volume 8.9; Monocytes # (A) 0.8 k/uL (0-1.0); Monocytes % (A) 4 %; Neutrophils # (A) 16.6 k/uL (1.3-7.7); Neutrophils % (A) 90 %; Platelet Count 355 k/uL (150-450); RBC 4.76 m/uL (4.30-5.90); RDW 17.1 % (11.5-15.5); WBC 18.5 k/uL (3.8-10.6)
[2017-10-24 07:16] LABS: INR 2.6 (<1.2); Prothrombin Time 23.1 sec (9.0-12.0)
[2017-10-24 07:29] LABS: Calcium 9.8 mg/dL (8.4-10.2); Potassium 4.5 mmol/L (3.5-5.1)
[2017-10-24] MEDS: ALLOPURINOL 100 MG TAB PO SCH (08:27)
[2017-10-24] MEDS: DULoxetine HCL 30 MG CAPSULE.DR PO SCH (08:27)
[2017-10-24] MEDS: PANTOPRAZOLE 40 MG TABLET PO SCH ×2 (08:27→22:16)
[2017-10-24] MEDS: TAMSULOSIN 0.4 MG CAP.ER.24H PO SCH (08:27)
[2017-10-24] MEDS: MAGNESIUM OXIDE 400 MG TAB PO SCH (08:27)
[2017-10-24] MEDS: METOPROLOL TARTRATE 12.5 MG TAB PO SCH ×2 (08:27→22:16)
[2017-10-24] MEDS: LIDOCAINE 5% PATCH TOPICAL SCH (08:28)
[2017-10-24] MEDS: ATORVASTATIN 40 MG TAB PO SCH (08:28)
[2017-10-24] MEDS: predniSONE 20 MG TAB PO SCH (08:28)
[2017-10-24] MEDS: ASPIRIN 81 MG PO SCH (08:28)
--- NOTE | 2017-10-24 11:29 | P.PN ---
Progress Note - Text Progress Note Date: 10/24/17 Patient seen and evaluated at bedside, AAOx3. Patient has only received oral morphine throughout the night along with reduced fentanyl patch and still continues to complain of 10/10 pain. Will stop oral morphine and continue oral Dilaudid 2 mg every 4 hours as needed for pain. Anticipate improved pain relief and service can tentatively plan for discharge at this dose to be continued in rehab facility. If patient is still hospitalized tomorrow, our service will evaluate. Please call with any questions.
[2017-10-24] MEDS: HYDROmorphone 2 MG TAB PO PRN ×3 (13:21→22:15)
--- NOTE | 2017-10-24 13:57 | P.CN ---
Psychiatric Consult - . Consult date: 10/24/17 Consult:: 10/24/17 13:29 Patient was seen for a psych consult regarding his statement about wanting to harm himself. Apparently last night he told the nurse that he wanted to harm himself but refused to tell her how he would do that. Patient has severe chronic pain for which he takes narcotics. Apparently this has not been helping him and he is still on lots of pain and feels frustrated about it. His also told me that he had said he wanted to even at home when he cannot get rid of the pain. Patient's said patient does not do anything at home except sit in the chair watched TV and take pain pills. He falls down and his cannot take care of him. Patient needs a lot of assistance in ambulation, taking medicines on time etc. Patient is also on Coumadin and has multiple contusions. Patient's reports that patient had one TIA and Yo's palsy in the past. He was started by his family doctor who is also a rebeamer, on Aricept 5 mg a day about 3 years ago for memory deficits. He is currently on hydromorphone 2 mg every 4 hours when necessary fentanyl patch 12 mcg/h Cymbalta 30 mg a day Ativan 0.5 mg every 6 hours when necessary, aspirin 81 mg a day, Coumadin 1 mg with supper in addition to Aricept 5 mg a day and several other medications. Patient's reported that they have a meeting at 3:00 today about him going to a hospice program. Patient was seen lying down in his bed. He is polite and cooperative. He is somewhat hard of hearing. He has subconjunctival hemorrhage on the left side and has multiple contusions on his limbs. He does not show any psychomotor agitation or retardation. He has some difficulty in hearing. His speech is spontaneous, but, he has aphasia. His mood is euthymic and affect is appropriate to the thought content. He denies hallucinations and delusional thinking. He agrees that he told the nurse last night that he was suicidal. But he insists that he does not want to kill himself and he said what he said because he was in pain. He also said he will not do anything to hurt himself. He is oriented to time and place. He is able to recall only one out of 3 items after 5 minutes. He named the last 4 presidents as [place] and Olivier was there somewhere. He is able to say [place]. Assessment: Does not appear to be at any risk for suicide at this time. 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 Very high risk for falling down, most likely due to effects of narcotics and difficulty in ambulation and for internal bleeding from falls secondary to anticoagulants. Suggestion: As we all know narcotics are not recommended on a long-term basis except for terminal illness. Since he may be going to hospice program, narcotics may not be contraindicated. But, you really need to look into the use of anticoagulants or at least decrease it to 1, since this patient has been falling down, to prevent internal bleeding, unless the risk outweighs the benefits. You may want to consider increasing Aricept to 10 mg a day, to have optimal effect since he does not have any adverse effects from it. Use of any other drugs with sedative effect including benzodiazepines is not recommended.
[2017-10-24] MEDS: WARFARIN 1 MG TAB PO SCH (17:37)
--- NOTE | 2017-10-24 19:48 | PN ---
PROGRESS NOTE DATE OF SERVICE: 10/24/2017 PRESENTING COMPLAINT: Back pain. INTERVAL HISTORY: This is a patient who presented with acute on chronic low back pain. Patient is more awake today. I saw that the pain medication was scaled back. Patient did eat some supper last night and some breakfast this morning. Tired but does answer some questions. His was present at the bedside when I saw the patient this morning. In the night middle of the night I was called by the nurse that the patient was feeling frantic about the whole situation and wanted to get oxygen tubing and wrap it around his neck. I had called in a sitter. REVIEW OF SYSTEMS: Attempted for constitutional, cardiovascular, GI, pulmonary. CURRENT MEDICATIONS: Reviewed. They include: 1. Fentanyl patch of 12. 2. Dilaudid 2 mg q.4 p.r.n. 3. Ativan 0.5 q.6 p.r.n. PHYSICAL EXAMINATION: Temperature 97.4, pulse 84, respiration 16, blood pressure initially 197/77, repeat was 126/57. Pulse ox 98% on room air. GENERAL APPEARANCE: Lying in bed. Lethargic but more awake today. EYES: Pupils equal. Conjunctivae normal. HEENT: External appearance of nose and ears normal. Oral cavity normal. NECK: JVD unable to assess. Mass not palpable. RESPIRATORY: Effort normal. LUNGS: Diminished breath sounds. CARDIOVASCULAR: First and second sounds normal. No edema. ABDOMEN: Soft, nontender. Liver and spleen not palpable. PSYCHIATRY: Patient is lethargic but arousable. Able to answer simple questions. Because of pain, limited range of motion of the lower extremities, though he is able to move some INVESTIGATIONS: White count 18.5, INR 2.6, potassium 4.5, BUN 40, creatinine 1.49. ASSESSMENT: 1. Acute on chronic low back pain from blunt injury. No evidence of fracture per CT scan. 2. History of atrial fibrillation. 3. Chronic congestive heart failure; ejection fraction not known. 4. Gastroesophageal reflux disease. 5. Hyperlipidemia. 6. Essential hypertension. 7. Benign prostatic hypertrophy. 8. Non-obstructive coronary artery disease. 9. Automated implantable cardioverter defibrillator. 10.Chronic kidney disease, stage IV, from nephrosclerosis. 11.Abdominal aortic aneurysm 4.9 cm. 12.Jenkins's esophagus. 13.Gait dysfunction; at baseline uses a cane and a walker. 14.Side effect of opioids improving with cutting back on dose. 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 PLAN: Consultation was made to Psychiatry, who did come in to see the patient, and then on their recommendation the sitter was let go, as patient was feeling better. Plan was to go ahead and have a family meeting this evening. I had a family meeting in the evening which included the patient's , patient also present along with the patient's 2 sons. industrial maintenance manager Anupama and nurse Azucena were present. Family had a lot of questions about the patient's condition. They simply wanted him to be comfortable, understanding that the patient's pain medications will make him more lethargic. The patient also wants to be more comfortable and I did explain that the pain medication will make him more lethargic and probably will affect his oral intake. They understand that the patient also wants pain control. Given his quality life, the patient has not been eating well for the last 2 months and functionally has been declining, according to the family. They were all in agreement that patient should be hospice; after going through different aspects of the case, it was decided to get him on hospice, continue with pain control. The patient's has used [facility] in the past and wants to try the hospice house. I did speak to Lakshmi from the hospice house. She will talk to the family. Time spent for advanced care planning today was about 30 minutes in addition to the other aspects of the case. We will discontinue patient's Coumadin. Patient's CODE STATUS is DO NOT RESUSCITATE. MMODL / IJN: [id number] /
[2017-10-25] MEDS: HYDROmorphone 2 MG TAB PO PRN ×6 (02:25→22:37)
[2017-10-25 06:58] LABS: INR 2.5 (<1.2); Prothrombin Time 22.9 sec (9.0-12.0)
[2017-10-25 07:08] LABS: Potassium 4.1 mmol/L (3.5-5.1)
[2017-10-25 07:10] LABS: Calcium 9.9 mg/dL (8.4-10.2)
[2017-10-25] MEDS: LIDOCAINE 5% PATCH TOPICAL SCH (08:08)
[2017-10-25] MEDS: DULoxetine HCL 30 MG CAPSULE.DR PO SCH (08:08)
[2017-10-25] MEDS: ALLOPURINOL 100 MG TAB PO SCH (08:08)
[2017-10-25] MEDS: predniSONE 20 MG TAB PO SCH (08:08)
[2017-10-25] MEDS: ASPIRIN 81 MG PO SCH (08:09)
[2017-10-25] MEDS: PANTOPRAZOLE 40 MG TABLET PO SCH ×2 (08:09→22:37)
[2017-10-25] MEDS: TAMSULOSIN 0.4 MG CAP.ER.24H PO SCH (08:09)
[2017-10-25] MEDS: METOPROLOL TARTRATE 12.5 MG TAB PO SCH ×2 (08:09→22:37)
--- NOTE | 2017-10-25 16:23 | P.PN ---
Subjective Progress Note Date: 10/25/17 Patient today more awake , he is still complaining of severe low back pain and lower extremity pain, he is currently on fentanyl patch 12 g every 72 hours, and Dilaudid 2 mg when necessary, he reported that his pain level 10/10 , he is not able to ambulate , patient was complaining at the same level of pain 10 over 10 when he was on 25 g fentanyl patch , the fentanyl patch was decreased because patient was unresponsive and confused, and the patient complaining of severe numbness and tingling sensation in the lower extremities, he is not able to ambulate, and complaining of weakness in the lower extremities Objective - Vital Signs Vital signs: Vital Signs Temp 97.7 F 10/25/17 14:39 Pulse 84 10/25/17 14:39 Resp 16 10/25/17 14:39 BP 164/73 10/25/17 14:39 Pulse Ox 98 10/25/17 14:39 Intake & Output 10/24/17 10/25/17 10/25/17 18:59 06:59 18:59 Intake Total 200 Balance 200 Intake: Oral 200 Other: Voiding Method Incontinent Incontinent Incontinent # Voids 2 1 1 # Bowel Movements 1 1 - Exam Physical Examinations : 1-Constitutiona : Cooperative , not in acute distress . 2-HEENT : nech ; supple , no Lymphadenopathy , normal thyroid size . eyes : no ptosis , no icterus, no photophobia . ENT : normal of hearing , normal oropharynx , no Thrush . 3- Respiratory : Chest clear to auscultations Bilaterally , no wheezing , no Rhonchi . 4- Cardiovascular : regular rate and rhythem , S1 , S2 , no S3 , no S4. 5- Gastrointestinal : abdomen soft no tenderness , bowel sounds positive all four quadrents , no organomegally . 6- Genitourinary : Defferred . 7- neurologic : Cranial nerve II to XII intact , no focal neurological deffecit . 8-psychatric : alert , oriented X 3 , appropriate affect , intact judgment and insight . 9-Lymphatic : no Lymphadenopathy . 10- musculoskeltal : cervical spine = motor stregnth in the deltoid and biceps, rmal at Brachioradialis , normal at the Triceps positive cervical facet loading test . , Lumber spine = normal moter stegnth lower extremities ,thigh and legs .3/5 deep tendon reflexes : normal Knee Jerk , normal ankle Jerk . lumber facet Loading Test positive strait leg raising test positive at 30 degree Right , positve at 30 degree Left Fabere test positive Right and positive Left Sever tenderness over the Sacroiliac joint on the Right , and Left side Positive allodynia throughout the lower extremities - Labs CBC & Chem 7: 10/24/17 06:46 10/25/17 06:36 Labs: Abnormal Lab Results - Last 24 Hours (Table) 10/25/17 10/25/17 Range/Units 06:36 06:42 PT 22.9 H (9.0-12.0) sec INR 2.5 H (<1.2) BUN 38 H (9-20) mg/dL Creatinine 1.55 H (0.66-1.25) mg/dL Glucose 122 H (74-99) mg/dL Assessment and Plan Plan: Assessment and plan= bilateral sacroiliitis, lumbar spinal stenosis, lumbar degenerative disc disease, contusion of the lumbar spine Patient instructed not candidate to have any interventional pain management procedures, INR is 2.5 Patient was very sleepy and unresponsive with the higher dose of opioid , patient had pinpoint pupils and he was on 25 g fentanyl patch, Fentanyl patch was decreased to 12 g every 72 hours patient currently more awake, and he is able to communicate, Recommend to continue fentanyl patch 12 g every 72 hours and continue Dilaudid 2 mg every 4 hours when necessary for breakthrough pain , then patient could benefit from Lyrica 25 mg twice a day,
--- NOTE | 2017-10-25 17:07 | PN ---
PROGRESS NOTE DATE OF SERVICE: October 25, 2017. PRESENTING COMPLAINT: Back pain. INTERVAL HISTORY: This patient presented with acute on chronic back pain, fracture was ruled out. The patient is lying in bed, awake. The patient is rather comfortable. Did eat some breakfast again this morning, including banana per the nurse. Now which is pain he said 10/10. Does not want to be out of bed. REVIEW OF SYSTEMS: Done for constitutional, cardiovascular, GI, pulmonary; relevant findings as above. CURRENT MEDICATIONS: Reviewed that include : 1. Duragesic patch at 12. 2. Dilaudid 2 mg q.4h p.r.n. 3. Ativan 0.5 q.6h p.r.n. 4. Lyrica 25 p.o. b.i.d. EXAMINATION: Temperature 98, pulse 79, respiratory 18, blood pressure 168/103, pulse ox 97% on room. General appearance: Lying in bed, appears rather comfortable. Eyes: Pupils are equal. Conjunctivae normal. HEENT external appearance of nose and ears normal. Oral cavity normal. Neck: JVD unable to assess. Mass not palpable. Respiratory effort normal. Lungs decreased breath sounds. Cardiovascular 1st and 2nd sounds normal. No edema. ABDOMEN: Soft, nontender, liver and spleen not palpable. Psychiatry: The patient is answering simple questions. Musculoskeletal: The patient really does not want to move his legs. INVESTIGATIONS: INR 2.5. Potassium 4.1, BUN 38, creatinine 1.55. ASSESSMENT: 1. Acute on chronic low back pain from blunt injury. No evidence of fracture per CT scan. 2. History of atrial fibrillation. 3. Chronic congestive heart failure, ejection fraction not known. 4. Gastroesophageal reflux disease. 5. Hyperlipidemia. 6. Essential hypertension. 7. Benign prostatic hypertrophy. 8. Nonobstructive coronary artery disease. 9. AICD. 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 11.Abdominal aortic aneurysm 4.9 cm. 12.Jenkins's esophagus. 13.Gait dysfunction at baseline uses a cane and a walker previously. 14.Side effects of opiate much improved, dose has been cut back. 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 PLAN: I had a lengthy talk with the patient's . Did explain that the patient always says the pain is 10/10, though she is pretty much controlled. The patient really does not want to move. Also spoke to Dr. Baig. He will adjust patient's pain medications accordingly and also meet up with the psychotherapist social worker Anupama. I will try to get the patient into rehab. It was felt at this point that patient may not necessarily be a hospice candidate because candidate and see how patient may do with rehab. If he can get the pain reasonably controlled, get up to walk, given high risk of falls and unsteadiness. Otherwise, the patient's Coumadin has been discontinued. I did speak at length to the today. MMODL / IJN: [id number] /
[2017-10-25] MEDS: PREGABALIN 25 MG CAP PO SCH (23:14)
[2017-10-26] MEDS: SODIUM CHLORIDE 0.9% 1,000 ML IV SCH (03:32)
[2017-10-26] MEDS: HYDROmorphone 2 MG TAB PO PRN ×3 (05:07→14:43)
[2017-10-26 07:50] LABS: INR 2.2 (<1.2); Prothrombin Time 19.8 sec (9.0-12.0)
[2017-10-26 08:04] LABS: Calcium 10.2 mg/dL (8.4-10.2); Potassium 5.1 mmol/L (3.5-5.1)
[2017-10-26] MEDS: LIDOCAINE 5% PATCH TOPICAL SCH (08:25)
[2017-10-26] MEDS: ALLOPURINOL 100 MG TAB PO SCH (08:25)
[2017-10-26] MEDS: METOPROLOL TARTRATE 12.5 MG TAB PO SCH (08:25)
[2017-10-26] MEDS: TAMSULOSIN 0.4 MG CAP.ER.24H PO SCH (08:25)
[2017-10-26] MEDS: predniSONE 20 MG TAB PO SCH (08:25)
[2017-10-26] MEDS: PREGABALIN 25 MG CAP PO SCH (08:25)
[2017-10-26] MEDS: ASPIRIN 81 MG PO SCH (08:25)
[2017-10-26] MEDS: PANTOPRAZOLE 40 MG TABLET PO SCH (08:25)
[2017-10-26] MEDS: DULoxetine HCL 30 MG CAPSULE.DR PO SCH (08:25)
--- NOTE | 2017-10-26 13:02 | XR ---
EXAMINATION TYPE: XR chest 1V portable DATE OF EXAM: 10/26/2017 COMPARISON: 09/13/2017 HISTORY: Pain TECHNIQUE: Single frontal view of the chest is obtained. FINDINGS: Heart is enlarged and there is hyperinflation suggestive COPD. Postoperative changes are n oted there is a cardiac device. Additional cardiac leads overlying the left chest. Exact location unc ertain based on single frontal view. Postsurgical change involving the left shoulder. Arthropathy of the right shoulder. No overt failure. Subsegmental changes at the right lung base. IMPRESSION: 1. COPD. 2. Linear changes at the lung bases favor atelectasis over pneumonia.
[2017-10-26 14:38] VITALS: BMI 30.1
--- NOTE | 2017-10-26 15:08 | DS ---
DISCHARGE SUMMARY DATE OF ADMISSION: 10/20/2017 DATE OF DISCHARGE: 10/26/2017 FINAL DIAGNOSES: 1. Acute on chronic low back pain from blunt injury secondary to fall. No evidence of fracture with the CT scan and ortho. 2. History of atrial fibrillation for which patient is on Coumadin. 3. Chronic congestive heart failure, ejection fraction not known. 4. Gastroesophageal reflux disease. 5. Hyperlipidemia. 6. Essential hypertension. 7. Benign prostatic hypertrophy. 8. Nonobstructive coronary artery disease. 9. AICD. 10.Chronic kidney disease stage III from nephrosclerosis. 11.Abdominal aortic aneurysm 4.9 cm. 12.Jenkins's esophagus. 13.Gait dysfunction at baseline uses a cane and a walker previously. 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 15.Medical debility. CONSULTATIONS: 1. Dr. Dhillon. 2. Dr. Campbell. 3. Dr. Finch. HOSPITAL COURSE: This is a 77-year-old patient of Dr. Lewis with multiple medical problems who had L2 kyphoplasty in December of [address] Pelletier, had been using a cane or walker, slowly being going downhill. Patient had fallen a week prior to coming in having increasing low back pain. CT scan did not show any fracture. Patient was seen by Pain Specialist who adjusted medication to current level, even though patient's pain is better controlled, he always says he has 10/10 pain. I did talk at length to patient's family member on several occasions. If patient's quality of life goes further downhill, then he may be considered for hospice depending on the course of things. Currently, patient is able to tolerate a diet. Answers simple questions. Patient is able to move his legs, though somewhat limited. Patient also seen by from Psychiatry. On examination, patient is able answer simple questions. Lungs decreased breath sounds. DISCHARGE MEDICATIONS: 1. Folic acid 1 mg q.h.s. 2. Methotrexate 5 mg p.o. on Fridays. 3. Protonix 40 mg b.i.d. 4. Calcitriol 0.5 mcg p.o. Sunday. 5. Aricept 5 mg at bedtime. 6. Magnesium oxide 400 mg p.o. daily. 7. Aspirin 81 mg p.o. daily. 8. Lopressor 12.5 p.o. b.i.d. 9. Coumadin 1 mg p.o. at supper. 10.Allopurinol 100 mg p.o. daily. 11.Flomax 0.4 mg p.o. daily. 12.Lipitor 40 mg p.o. daily. 13.Vitamin D2 fifty thousand units every 14 days. 14.Cymbalta 30 mg p.o. q.h.s. 15.Prednisone 20 mg b.i.d. 16.[place] 10/325 one tablet q.i.d. p.r.n. 17.Dilaudid 2 mg q.4 p.r.n. 18.Lactulose 20 g p.o. daily p.r.n. 19.Lidoderm 5% patch topical daily. 20.Lyrica 25 p.o. b.i.d. 21.Duragesic 12 mcg an hour patch. DISPOSITION: Long long-term placement. FOLLOWUP: Follow up with Dr. Lewis in [address] Campbell in 1 week. Follow up with Dr. Pelletier in 1 week. Discussion of discharge planning more than 35 minutes. MMODL / IJN: [id number] /
[2017-10-26 15:54] VITALS: BP 123/78; PULSE 97; RESP 15; TEMP 97.4
== END 2017-10-26 17:25 | DRG 552 ==
LOC: EC 22:19 → 3SUR 22:57 → OBSVTOIN 10-20 15:15 → 3SUR 10-26 14:46
PROVIDERS: ADMIT Hospitalist; ATTEND Hospitalist
DX: M54.5 Low back pain (principal); N18.4 Chronic kidney disease, stage 4 (severe); I48.91 Unspecified atrial fibrillation; R45.851 Suicidal ideations; I13.0 Hypertensive heart and chronic kidney disease with heart failure and stage 1 through stage 4 chronic kidney disease, or unspecified chronic kidney disease; I50.9 Heart failure, unspecified; E78.5 Hyperlipidemia, unspecified; G51.0 Bell's palsy; E55.9 Vitamin D deficiency, unspecified; M51.16 Intervertebral disc disorders with radiculopathy, lumbar region; F32.9 Major depressive disorder, single episode, unspecified; F41.9 Anxiety disorder, unspecified; K21.9 Gastro-esophageal reflux disease without esophagitis; N40.0 Benign prostatic hyperplasia without lower urinary tract symptoms; I25.10 Atherosclerotic heart disease of native coronary artery without angina pectoris; I71.4 Abdominal aortic aneurysm, without rupture; K22.70 Barrett's esophagus without dysplasia; R26.2 Difficulty in walking, not elsewhere classified; R41.9 Unspecified symptoms and signs involving cognitive functions and awareness; R53.1 Weakness; M81.0 Age-related osteoporosis without current pathological fracture; M62.838 Other muscle spasm; G89.29 Other chronic pain; H91.90 Unspecified hearing loss, unspecified ear; H11.32 Conjunctival hemorrhage, left eye; M46.1 Sacroiliitis, not elsewhere classified; S30.0XXA Contusion of lower back and pelvis, initial encounter; T38.0X5A Adverse effect of glucocorticoids and synthetic analogues, initial encounter; R73.9 Hyperglycemia, unspecified; R32 Unspecified urinary incontinence; G89.11 Acute pain due to trauma; R41.0 Disorientation, unspecified; T40.605A Adverse effect of unspecified narcotics, initial encounter; T14.8XXA Other injury of unspecified body region, initial encounter; Z86.73 Personal history of transient ischemic attack (TIA), and cerebral infarction without residual deficits; Z79.891 Long term (current) use of opiate analgesic; Z90.49 Acquired absence of other specified parts of digestive tract; Z95.2 Presence of prosthetic heart valve; Z90.89 Acquired absence of other organs; Z95.810 Presence of automatic (implantable) cardiac defibrillator; Z96.612 Presence of left artificial shoulder joint; Z98.41 Cataract extraction status, right eye; Z98.42 Cataract extraction status, left eye; Z96.1 Presence of intraocular lens; Z87.891 Personal history of nicotine dependence; Z83.518 Family history of other specified eye disorder; Z80.9 Family history of malignant neoplasm, unspecified; Z79.899 Other long term (current) drug therapy; Z79.01 Long term (current) use of anticoagulants; Z79.82 Long term (current) use of aspirin; Z79.52 Long term (current) use of systemic steroids; Z88.6 Allergy status to analgesic agent; Z88.1 Allergy status to other antibiotic agents; Z88.8 Allergy status to other drugs, medicaments and biological substances; W19.XXXA Unspecified fall, initial encounter; Z87.2 Personal history of diseases of the skin and subcutaneous tissue; Z87.310 Personal history of (healed) osteoporosis fracture; Z82.49 Family history of ischemic heart disease and other diseases of the circulatory system; Z82.61 Family history of arthritis; Z81.8 Family history of other mental and behavioral disorders; Z66 Do not resuscitate
CPT/HCPCS: 36415; 71045; 72128; 74177; 80048; 80053; 81003; 82150; 83690; 85025; 85610; 96361; 96374; 96375; 96376; 99285